=== PATIENT | male | born 1960 | race Caucasian/White ===

== ENCOUNTER 2019-04-11 13:04 | Outpatient (RCR) | payer MEDICARE, MEDICAID, SELFPAY | END 2019-05-09 00:01 | LOC: WOUND 13:04 | PROVIDERS: Family Provider Nurse Practitioner Primary Care; Visit Provider Thoracic Surgery (Cardiothoracic Vascular Surgery) | DX: I96 Gangrene, not elsewhere classified (principal); L97.529 Non-pressure chronic ulcer of other part of left foot with unspecified severity; I12.0 Hypertensive chronic kidney disease with stage 5 chronic kidney disease or end stage renal disease; N18.6 End stage renal disease; Z99.2 Dependence on renal dialysis | CPT/HCPCS: 11042 ==

== ENCOUNTER 2019-06-01 13:15 | Observation (INO) | payer MEDICARE, MEDICAID, SELFPAY ==
[2019-06-01] VITALS (82 sets, daily range): BP systolic 120–187; BP diastolic 80–136; PULSE 71–93; RESP 0–22; TEMP 36.6–36.7; O2SAT 91–99; BMI 25.3
--- NOTE | 2019-06-01 07:30 | XACV_ITS ---
Ht: 183 cm Wt: 85 kg BSA: 2.08 m2 Gender: Male : 1960 Exam Type: Invasive Peripheral Vascular Procedure(s): Procedure Description: Peripheral Cath Diagnostic Procedure Procedure Description: Abdominal aortic angiography Procedure Description: Lower extremities' angiography Procedure Description: Peripheral vascular Intervention Procedure Description: PV Balloon Exam Priority: Routine Lower Extremity Interventional Findings Unsuccessful attempt to open up left posterior tibial artery. Were not able to cross the lesion despite of multiple balloon angioplasty. Medical management was advised. Conclusions Gangrenous left foot toesSevere claudication ( [place] grade II, category 4:Lux stage IIII. )Procedure SummaryRight common femoral artery was used to performed peripheral angiogram, #1 Abdominal aortic has Luminal irregularities#2 Left and right renal arteries has luminal irregularities. 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 Left peroneal artery has proximal 50% stenosis.#15 digital arteries of the left foot not well visualized most likely occluded. Patient has small vessel disease. Hemodynamic Data Phase:Rest AO : 171.0 mmHg / 93.0 mmHg ( 126.0 mmHg ) @ 5:21:00 AM 158.0 mmHg / 81.0 mmHg ( 109.0 mmHg ) @ 5:30:00 AM 158.0 mmHg / 72.0 mmHg ( 105.0 mmHg ) @ 5:32:00 AM 144.0 mmHg / 69.0 mmHg ( 98.0 mmHg ) @ 5:44:00 AM 141.0 mmHg / 67.0 mmHg ( 94.0 mmHg ) @ 5:47:00 AM 140.0 mmHg / 70.0 mmHg ( 97.0 mmHg ) @ 6:04:00 AM 140.0 mmHg / 72.0 mmHg ( 100.0 mmHg ) @ 6:16:00 AM 154.0 mmHg / 78.0 mmHg ( 109.0 mmHg ) @ 6:25:00 AM Access Site Site: Right Femoral artery Sheath Size: 6 Fr Hemost... Method: Suture Hemost... Success: Successful Procedure Details Findings [facility] time/date stamp having technical issues. All documentation and procedure done between 10:25- on June 01, 2019. Perclose: Ref #[id number]; LOT #[id number]. Critical lab results relayed to physician. Creatine 7.7. [place] wire removed. Command wire inserted. Command wire removed. Glidewire inserted. Seeker removed. Bakari Cross inserted over the glidewire. Everything out. RIM catheter inserted over the glidewire to the posterior tib. RIM catheter and glidewire inserted to left popliteal. Medication's Wasted: Lidocaine 1% = 10mL, Heparin = 4000 units, Versed = 1 mg, Fentanyl 50mcg. [id number]. Procedure Consent Obtained. Pre-Procedure Time Out. Identified patient by full name and date of as verbalized by the patient/guarantor. Does the consent match the physician's order: Yes. Accurate & Complete Informed Consent: Yes. Inpatient/Outpatient History & Physical on Chart: Yes. Visualize and Verify Site with Patient/Guarantor: N/A. Relevant Radiology Images available: N/A. The risks, benefits, and alternatives of sedation and/or procedure were discussed by physician. The patient agrees to continue. Procedure started. Bindery Machine Setter/Set Up Operator Indications: Other. PERRLA. Strong, equal hand brake lining maker bilaterally. Lungs clear x 5 lobes. IV Site on Arrival: 20 gauge in the right wrist. IV Site on Arrival: Saline Lock. A 20 gauge IV was started in the right wrist using aseptic technique. IV Fluids: 0.9% NaCl at KVO. mL infused prior to laboratory chief. Oxygen started at 2liters/min via nasal canula. bilateral groins was prepped with chloroprep then draped in the usual sterile fashion. Physician notified. Baseline sample Acquired. HR: 93 BPM. Patient's family unavailable. Equipment: 6F - Femoral. Physician arrived. Physician scrubbed in. Immediate Pre-Procedure Time Out. Correct Patient: Yes; Correct Procedure: Yes; Correct Site: Yes; Correct Patient Position: Yes; Correct Supplies: Yes; Dried Flammable Prep: Yes; Blood Products Available: Yes;. Dr. Herrera scrubbed in to perform intervention. PCI Indication: critical lower limb ischemia. Delay in PCI related to other reason: needing labs drawn - pre failed to draw labs. Francisca Erickson, RT(R) was relieved by Johnathon Mcmahon RT(R), TUBE BUFFER as monitoring person. Lidocaine 1% infiltrated to the right groin. Arterial access obtained with micropuncture set. A 5FrFr UF catheter in over wire. Abdominal aortogram performed in AP @ 10 mL/sec for a total of 30 mL. Sheath upsized to a 6 Fr. Trailblazer catheter inserted over the wire. Side port of sheath attached to Normal Saline flush at KVO to maintain patency. Support catheter positioned in the popliteal to better visualize the distal vessels. Wire out. Left popliteal selected and arteriogram performed. Wire redirected to the peroneal. Left tibial peroneal trunk selected and arteriogram performed. Wire redirected to the posterior tibial. Balloon inserted over the wire to the posterior tibial. Inflation number : 1 A AB MINI TREK 2.00X20 RX BALLOON was prepped and advanced across the Proximal Posterior Tibial, Left , then inflated to 20 DEV for 0:46 seconds. Inflation number: 2 The AB MINI TREK 2.00X20 RX BALLOON was reinflated across the Proximal Posterior Tibial, Left, to 20 DEV for 0:10 seconds. Balloon and wire out. Left posterior tibial selected and arteriogram performed. Catheter out. Left common femoral selected and arteriogram with runoff performed @ 10 mL/sec for a total of 30 mL. Sheath injected in Right common femoral artery and runoff performed. A Suture was successful obtaining hemostatsis at the Right Femoral artery insertion site. Sheath(s) sutured into position with 2-0 silk and sterile 4x4's and Op-site applied over the site. No oozing or signs and symptoms of hematoma noted. Arterial sheath flushed and connected to tranducer and pressure bag with heparinized saline. Post Procedure: Pulses reassessed and unchanged. Physician scrubbed out. PERRLA. Strong, equal hand brake lining maker bilaterally. No VTE prophylaxis required. Total IV fluids: 700 mL. Fluoro: 25:10. Contrast type used: Visipaque 320 mgI/mL, 500 mL bottle. Post-op diagnosis: Peripheral Arterial Disease. Complications: Perclose failed. Estimated blood loss: 5mL-10mL. Procedure completed. Patient transferred by bed to 1st floor. Procedure Medications Start: 10:46 AM Stop: 10:46 AM Medication: Versed Amount: 1 mg Route: I.V. Start: 10:46 AM Stop: 10:46 AM Medication: Fentanyl Amount: 50 mcg Route: I.V. Start: 10:51 AM Stop: 10:51 AM Medication: Versed Amount: 1 mg Route: I.V. Start: 10:51 AM Stop: 10:51 AM Medication: Fentanyl Amount: 50 mcg Route: I.V. Start: 10:53 AM Stop: 10:53 AM Medication: Versed Amount: 1 mg Route: I.V. Start: 10:53 AM Stop: 10:53 AM Medication: Fentanyl Amount: 50 mcg Route: I.V. Start: 12:19 PM Stop: 12:19 PM Medication: Heparin Amount: 5000 units Route: I.A. I, the attending physician, have reviewed and verified all procedure medications. Yes, all medications given per verbal order History/Risk Factors Hypertension: No Dyslipidemia: No Peripheral Arterial Disease (PAD): Yes Myocardial Infarction (CT): No Obesity: No Tobacco Use: Former Prior Interventions PCI: No CABG: No Valve Surgery: No Report Signatures Finalized by:Hiwot Herrera MD on 06/18/2019 10:04:58 PM
[2019-06-01] MEDS: sodium chloride 0.9% 1,000 ML 50 ML IV (08:44)
[2019-06-01] MEDS: diphenhydrAMINE 50 mg Capsule PO (08:44)
[2019-06-01 09:48] LABS: INR 0.91 (0.8-1.2)
--- NOTE | 2019-06-01 10:30 | P.HP_ITS ---
Providers/Chief Complaint Chief Complaint: Critical Lower Limb Ischemia History of Present Illness Joshua Baugh is a 59 year old male past medical history significant for severe peripheral vascular disease, gangrenous left foot with nonhealing ulcers and supranormal KAMRYN of left leg and TBI 0.34 due to highly calcified vessels secondary to chronic kidney disease. Patient is on hemodialysis. He follows up with wound care clinic. Today he is here for peripheral angiogram and an attempt to revascularize due to gangrenous onset of the foot he denies any chest pain shortness of breath upon laying down. He denies history of bleeding per rectum or through stomach. He is allergic to ibuprofen. Medications/Allergies Allergies Allergy/AdvReac Type Severity Reaction Status Date / Time ibuprofen Allergy ADR-Gastrointestinal Verified 06/01/19 08:18 Upset PFSH Acute PFSH: Statuses (acute, chronic, etc) shown below reflect problem list status as previously entered and may not be historically accurate Medical History (Updated 06/01/19 @ 10:38 by Hiwot Herrera MD) Critical lower limb ischemia (Acute) Hemodialysis patient (Acute) Hemodialysis 3 days a week Hypertension (Acute) Non-healing ulcer (Acute) Left Toe Peripheral vascular disease (Acute) Family History Sister Cancer Social History Smoking and tobacco status: former smoker Quit status (tobacco): has quit using tobacco Vitals/I&O/Wt Last Vital Signs Temp 98.0 F 06/01/19 08:30 Pulse 84 06/01/19 08:30 Resp 18 06/01/19 08:30 BP 160/106 06/01/19 08:30 Pulse Ox 97 06/01/19 08:30 Weight last 48 hrs Weight 187 lb Weight 187 lb Physical Exam Narrative: EXAM NARRATIVE: GENERAL: Patient is alert, awake and oriented x3. [] NECK: No jugular vein distension. [] HEENT: No cyanosis. No icterus. No pallor. [] HEART: Regular S1 and S2. No murmur, rub or gallop. [] LUNGS: Clear to auscultate bilaterally. [] ABDOMEN: Soft, nontender and nondistended. Positive bowel sounds. No guarding, rebound or tenderness. [] CENTRAL NERVOUS SYSTEM: Grossly nonfocal. [] EXTREMITIES: Lower extremities without edema bilaterally. Not palpable in left lower foot. First second and third toes has nonhealing wound with gangrenous onset A&P Assessment and plan (1) Critical lower limb ischemia: Patient has gangrenous left foot with severe peripheral vascular disease/critical limb ischemia. He is here today for peripheral angiogram and percutaneous angioplasty if indicated. Patient has been explained in detail all risk benefits and alternatives for the procedure. He has been explained the risk of drug-coated balloon and warning regarding high mortality and subset where drug-coated balloon was used by FDA. He would like to proceed with drug- coated balloon angioplasty or stent placement if indicated. Status: Acute Code(s): I99.8 - Other disorder of circulatory system (2) Hypertension: Controlled. Continue current regimen Status: Acute Code(s): I10 - Essential (primary) hypertension (3) Hemodialysis patient: He will be dialyzed tomorrow. Status: Acute Code(s): Z99.2 - Dependence on renal dialysis Attestations Medical Necessity Statement*: I am not expecting his stay to cross more than 1 midnight Coding Level of Care Code Acute Radio Mechanic for [facility] Fwd Diagnoses Critical lower limb ischemia I99.8 Hypertension I10 Hemodialysis patient Z99.2
[2019-06-01 11:04] LABS: Basophils % 0.1 %; Eosinophils % 0.2 %; Hematocrit 38.1 % (42.0-52.0); Hemoglobin 11.7 g/dL (11.7-16.6); Lymphocytes # 0.8 10^3/uL (0.8-4.8); Lymphocytes % 8.7 %; Mean Corpuscular HGB Conc 30.7 g/dL (30.0-36.0); Mean Corpuscular Hemoglobin 32.4 pg (28.0-34.0); Mean Corpuscular Volume 105.5 fL (80-94); Monocytes # 0.5 10^3/uL (0.2-0.9); Monocytes % 5.1 %; Neutrophils # 7.8 10^3/uL (1.8-7.7); Neutrophils % 82.8 %; Nucleated Red Blood Cells % 0 %; Platelet Count 187 10^3/cmm (130-400); Red Blood Count 3.61 10^6/uL (4.1-5.3); Red Cell Distribution Width 14.6 % (12.1-15.1); White Blood Count 9.4 10^3/uL (4.0-10.0)
--- NOTE | 2019-06-01 11:12 | ANES.PREANES ---
Pre-Anesthetic Assessment Pre-Anesthetic Assessment: Height/Weight: Height 1.83 m Weight 84.822 kg Temp Pulse Resp BP Pulse Ox 98.0 F 84 18 160/106 97 06/01/19 08:30 06/01/19 08:30 06/01/19 08:30 06/01/19 08:30 06/01/19 08:30 Preop Diagnosis: left leg arterial insufficiency Proposed Procedure: Operation Date: 06/01/19 08:00 Proposed Procedures p Peripheral Diagnostic(Bilateral) - Hiwot Herrera MD Was Beta Lima taken within 24 hours: Yes Last intake: 05/31 2358 Last Intake: 23:59 Social: Comment: former smoker Airway: Dentition: False CV/HEM: CV/HEM: HTN and PVD : : Chronic renal failure Comments: dialysis MWF Hepatic: Hepatic: None reported Musc/skel: Musc/skel: None reported Anesthetic Plan: ASA status: IV Anesthesia: MAC Other Pertinent Information: called over for peripheral angiogram in progress. pt has had 3mg versed and 150mcg of fentanyl but having trouble keeping pt still. assessed and evaluated and read H&P. Meds/Allergies Current Medications: Current Medications Generic Name Dose Route Start Last Admin Trade Name Freq PRN Reason Stop Dose Admin Sodium Chloride 1,000 mls @ 50 ml s/hr 06/01/19 07:30 06/01/19 08:44 Sodium Chloride 0.9% IV 06/02/19 03:29 50 mls/hr .Q20H ONE Administration PFSH Anesthesia PFSH: Medical History (Updated 06/01/19 @ 10:38 by Hiwot Herrera MD) Critical lower limb ischemia (Acute) Hemodialysis patient (Acute) Hemodialysis 3 days a week Hypertension (Acute) Non-healing ulcer (Acute) Left Toe Peripheral vascular disease (Acute) Family History Sister Cancer Social History Smoking and tobacco status: former smoker Quit status (tobacco): has quit using tobacco Data Anesthesia CBC & Chem 7: 06/01/19 08:36 Other Labs: Laboratory Results - last 48 hr 06/01/19 06/01/19 08:36 08:36 WBC 9.4 RBC 3.61 L Hgb 11.7 Hct 38.1 L MCV 105.5 H MCH 32.4 MCHC 30.7 RDW 14.6 Plt Count 187 MPV 10.0 Neut % (Auto) 82.8 Lymph % (Auto) 8.7 [place] % (Auto) 5.1 Eos % (Auto) 0.2 Baso % (Auto) 0.1 Neut # (Auto) 7.8 H Lymph # (Auto) 0.8 [place] # (Auto) 0.5 Eos # (Auto) 0.0 Baso # (Auto) 0.0 Nucleated RBC % (auto) 0 Nucleated RBCs # 0.0 PT 12.50 INR 0.91 Cardiac Studies: No Data to Display
[2019-06-01 11:47] LABS: Anion Gap 15.3 (5-19); Blood Urea Nitrogen 38 mg/dL (8-23); Calcium 8.8 mg/dL (8.5-10.5); Carbon Dioxide 29 mmol/L (22-29); Chloride 98 mmol/L (98-107); Glomerular Filtration Rate 7.2 mL/min (90-130); Glucose 117 mg/dL (74-106); Osmolality Calculated 283 mOsm/kg (285-295); Potassium 5.3 mmol/L (3.5-5.1); Sodium 137 mmol/L (136-145)
[2019-06-01] MEDS: morphine 4 mg/mL SDV 1 mL IVP ×2 (13:22→23:27)
--- NOTE | 2019-06-01 13:28 | PC.NURSE ---
PATIENT TO CSU 106 VIA STRETCHER WITH CCL RNs ; PATIENT HAS SHEATH IN IN RIGHT GROIN ATTACHED TO PRESSURE BAG ; VSS ; PATIENT COMBATIVE WITH SECURITY AND DR AT BEDSIDE ; PATIENT, UNDER INFLUENCE OF MEDICATIONS ADMINISTERED IN CCL, PER CCL RN WAS NOT THIS WAY PRIOR TO PROCEDURE ; MORPHINE WAS ORDERED AND ADMINISTERED ; PATIENT OPENED EYES AFTER ADMINISTRATION OF MORPHINE AND WAS POLITE AND INTRODUCED HIMSELF ; RIGHT GROIN SITE DRESSING C/D/I WITH RIGHT DISTAL PEDAL PULSE PRESENT ; WILL DOPPLER LEFT PEDAL PULSE WHEN PATIENT LESS CONFUSED ; REPORT GIVEN VIA PHONE AND AT BEDSIDE
[2019-06-01 16:55] LABS: Partial Thromboplastin Time 28.5 SECONDS (23.9-36.7)
[2019-06-01] MEDS: ALPRAZolam 0.5 mg Tablet PO ×2 (18:10→21:16)
[2019-06-01] MEDS: sevelamer 800 mg Tablet PO (18:10)
[2019-06-01] MEDS: amlodipine 5 mg Tablet 2.5 MG PO (18:10)
[2019-06-01] MEDS: carvedilol 25 mg Tablet PO (18:10)
[2019-06-01] MEDS: fentaNYL 50 mcg/mL INJ 2mL IVP (18:50)
--- NOTE | 2019-06-01 22:45 | PC.NURSE ---
Patient wanted his blood pressure cuff off at 2100. this is why post cath flow sheet could not be completed as ordered.
[2019-06-02] VITALS (7 sets, daily range): BP systolic 136–178; BP diastolic 86–107; PULSE 85–91; RESP 10–24; TEMP 36.6–37; O2SAT 92–97
[2019-06-02] MEDS: morphine 4 mg/mL SDV 1 mL IVP ×2 (05:11→12:19)
[2019-06-02] MEDS: predniSONE 10 mg Tablet PO (08:52)
[2019-06-02] MEDS: amlodipine 5 mg Tablet 2.5 MG PO (08:52)
[2019-06-02] MEDS: ALPRAZolam 0.5 mg Tablet PO (08:52)
[2019-06-02] MEDS: sevelamer 800 mg Tablet PO (08:52)
[2019-06-02] MEDS: carvedilol 25 mg Tablet PO ×2 (08:52→19:49)
--- NOTE | 2019-06-02 09:39 | PM.DCS ---
Discharge Providers Date of Admission: 06/01/19 13:15 Date of Discharge: 06/14/19 Attending Provider at Admission: Hiwot Herrera Attending Provider at Discharge: Hiwot Herrera Primary Care Provider: Hiwot Herrera Diagnoses at Discharge Discharge Diagnosis (1) Critical lower limb ischemia: Status: Acute (2) Hypertension: Status: Acute (3) Hemodialysis patient: Status: Acute Problem details: Hemodialysis 3 days a week Reason for Visit Reason for Visit: Reason For Visit: Critical Lower Limb Ischemia Discharge Data Data Completed and Pending: Completed Studies During Hospitalization Category Date Time Status LEARNING AND DEVELOPMENT MANAGER request for service Routin e Exams 06/01/19 07:30 Completed Labs from last 24 hours 06/01/19 06/01/19 06/01/19 16:39 11:20 08:36 WBC 9.4 RBC 3.61 L Hgb 11.7 Hct 38.1 L MCV 105.5 H MCH 32.4 MCHC 30.7 RDW 14.6 Plt Count 187 MPV 10.0 Neut % (Auto) 82.8 Lymph % (Auto) 8.7 [place] % (Auto) 5.1 Eos % (Auto) 0.2 Baso % (Auto) 0.1 Neut # (Auto) 7.8 H Lymph # (Auto) 0.8 [place] # (Auto) 0.5 Eos # (Auto) 0.0 Baso # (Auto) 0.0 Nucleated RBC % (a uto) 0 Nucleated RBCs # 0.0 PT INR APTT 28.5 Sodium 137 Potassium 5.3 H Chloride 98 Carbon Dioxide 29 Anion Gap 15.3 BUN 38 H Creatinine 7.7 H* GFR Calculation 7.2 L Glucose 117 H Calculated Osmolal ity 283 L Calcium 8.8 06/01/19 08:36 WBC RBC Hgb Hct MCV MCH MCHC RDW Plt Count MPV Neut % (Auto) Lymph % (Auto) [place] % (Auto) Eos % (Auto) Baso % (Auto) Neut # (Auto) Lymph # (Auto) [place] # (Auto) Eos # (Auto) Baso # (Auto) Nucleated RBC % (a uto) Nucleated RBCs # PT 12.50 INR 0.91 APTT Sodium Potassium Chloride Carbon Dioxide Anion Gap BUN Creatinine GFR Calculation Glucose Calculated Osmolal ity Calcium Vitals: Last Vital Signs Temp 98.2 F 06/02/19 07:34 Pulse 91 01/24/20 07:34 Resp 10 L 06/02/19 07:34 BP 178/107 06/02/19 07:34 Pulse Ox 97 06/02/19 07:34 Discharge Plan Discharge Patient Disposition: Home, Self-Care Condition: Stable Prescriptions: Continued clonidine HCl 0.1 mg Tablet 0.1 mg PO BID RF: 0 tramadol 50 mg Tablet 50 mg PO Q8H PRN (Reason: Pain) RF: 0 sevelamer carbonate [Renvela] 800 mg Tablet 800 mg PO TID RF: 0 prednisone 10 mg Tablet 10 mg PO BID RF: 0 carvedilol 25 mg Tablet 25 mg PO BID RF: 0 alprazolam 0.5 mg Tablet 0.5 mg PO TID RF: 0 amlodipine 2.5 mg Tablet 2.5 mg PO DAILY RF: 0 hydrocodone-acetaminophen 5-325 mg Tablet 0.5 - 1 tab PO Q4H PRN (Reason: Pain) RF: 0 Discharge Orders: Discharge Order (Routine); Ordered 06/02/19 Ordered By: Hiwot Herrera Discharge Diet: Advance as tolerated and Cardiac Discharge Activity: Increase activity as tolerated Patient Instructions: Hemodialysis (DC), Hemodialysis (GEN), Chronic Hypertension (DC), Peripheral Vascular Angioplasty (DC), Peripheral Vascular Angioplasty (GEN) Activity Restrictions/Additional Instructions: No lifting of more than a gallon of milk for next 3 days. Please follow-up with your wound care clinic. Conservative management due to distal small vessel disease. Continue your dialysis as per your appointment today. Discharge Date/Time: 06/03/19 07:12 Discharge Attestations Time Spent in Discharge Care*: less than 30 min Quality Metrics Clinical Quality Measures During this hospital stay, did patient experience: None Coding Level of Care Code Acute Air Route Traffic Controller for [facility] Fwd Diagnoses Critical lower limb ischemia I99.8 Hypertension I10 Hemodialysis patient Z99.2
--- NOTE | 2019-06-02 12:37 | PC.CHAP ---
Pastoral Care Encounter/Spiritual Assessment Type of Contact [] Declined cmo & president visit [] Patient/Family/Request visit [] Outpatient visit [] Follow-up visit [] Physician referral [] Code/Alert [x] Routine visit [] Staff referral [] Actively dying [] Patient sleeping [] Family support [] [] Out of room [] Palliative care [] [] Receiving care in room [] Pre-surgical visit [] Trauma [] Long length of stay [] ICU visit [] Other: Relational/Emotional Strength [x] Patient feels connected with others/family/visitors/staff [] Distress [] Loneliness/isolation [] Abandonment Spirituality of Patient [x] Person of Tabitha [x] Attends Rastafarian of their Tabitha [x] Believes in Prayer [] Reads Bible or Protestant materials [] There are Spiritual issues to be addressed Machine Striper Interventions [x] Prayer [x] Active listening [x] Non-anxious presence [x] Spiritual/emotional support [] Crisis/trauma care [x] Spiritual counseling [] Bereavement support [] Provided bereavement packet [] Provided Bible/devotional materials [] Provided toy/stuffed animal, coloring book to patient or family member [] Completed spiritual assessment [] Provided Communion [] Anointing/[place] [] Salvation [] Other: Impact on Illness or Injury [] Angry [] Fearful [] Anxious [] Often cries [] Exhaustion [] Unable to work [] Unable to attend mormonism [] Unable to walk/stand [] Unable to read [] Unable to drive [] Unable to eat/drink [] Unable to sleep [] Unable to be with family [x] Other: N/A Summary Time spent with patient 5-minutes
[2019-06-02 13:56] LABS: Hepatitis C Virus Antibody Non-Reactive (Nonreactive)
[2019-06-02 13:57] LABS: Hepatitis B Surface Antigen. Non-Reactive (Nonreactive)
--- NOTE | 2019-06-02 15:40 | PM.PN ---
Subjective Subjective: Interval history: I was called and asked to dialyze patient post procedure - today is regular dialysis day. He received 2'45 and signed off machine AMA. Anxious for discharge home.States he will return to outpatient unit for regularly scheduled dialysis WednesdayJun 05 I asked him to restrict potassium and fluids over weekend. Vitals/I&O/Wt Last Vital Signs Temp 98.2 F 06/02/19 11:10 Pulse 90 06/02/19 11:10 Resp 18 06/02/19 12:19 BP 136/86 06/02/19 11:10 Pulse Ox 97 06/02/19 11:10 06/02/19 06/02/19 06/02/19 06:59 14:59 22:59 Intake Total 240 / 720 Output Total 250 / 250 300 / 300 Balance -10 / 470 -300 / -300 Weight last 48 hrs Weight 84.822 kg Weight 84.822 kg Data : 06/01/19 08:36 06/01/19 11:20 Attestations Medical Necessity Statement*: being discharged Coding Level of Care Code Acute Home Visitor [employer] for [facility]
--- NOTE | 2019-06-02 16:01 | PC.SOCIAL ---
Pt care nurse Elana messaged & asked if we can set pt up a ride. [facility], [facility] now [facility]. Trip # [id number]. Notified Mariel Parikh there is a 3hr window.
--- NOTE | 2019-06-02 20:29 | PC.NURSE ---
Patient is currently discharged and waiting for transportation through [facility]. New trip # [id number] [facility].
--- NOTE | 2019-06-02 23:06 | PC.NURSE ---
Assessments not completed on this patient due to being discharged. Patient has been waiting for a ride through [employer]. RN has spoke to [employer] representives multiple times this evening to check on ride. Have spoke with Lindsay Brown, and Willa every hour since obtaining a new trip number for [facility]. Trip # [id number]. Information received is they are still trying to find transportation. . IV and telemetry removed earlier today when discharge paperwork was signed by patient. Have kept patient up to date as much as possible. Patient has been understanding and cooperative at this time.
--- NOTE | 2019-06-03 00:32 | PC.NURSE ---
Spoke with Amish at [facility]. [facility] has arranged transportation with [facility]. 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 Informed patient of arrangements and patient was pleasant stating, I will just be happy to be home.
== END 2019-06-03 07:12 | disposition home or self-care (01) ==
LOC: CSU 13:16
PROVIDERS: Internal Medicine; Admitting Provider Internal Medicine Cardiovascular Disease; Family Provider Nurse Practitioner Primary Care; PCP Internal Medicine Cardiovascular Disease; Visit Provider Internal Medicine Cardiovascular Disease
DX: I70.268 Atherosclerosis of native arteries of extremities with gangrene, other extremity (principal); Z99.2 Dependence on renal dialysis; Z87.891 Personal history of nicotine dependence; I12.9 Hypertensive chronic kidney disease with stage 1 through stage 4 chronic kidney disease, or unspecified chronic kidney disease; N18.9 Chronic kidney disease, unspecified
CPT/HCPCS: 12345; 36415; 37228; 71045; 73630; 75625; 75716; 80048; 80053; 82550; 83605; 84100; 85025; 85610; 85651; 85730; 86140; 86803; 87340; 93005; 96365; 96374; 96375; 99281; C1725; C1769; C1887; C1894; G0378; J1644; J2001; J2250; J2270; J2405; J2704; J3010; J7030; J7512; Q3014; Q9967

== ENCOUNTER 2019-06-03 20:39 | Emergency (ER) | payer MEDICARE, MEDICAID, SELFPAY ==
[2019-06-03 20:40] VITALS: BP 162/99; PULSE 107; RESP 18; TEMP 36.7; O2SAT 90; BMI 22.3
--- NOTE | 2019-06-03 20:43 | ED_ITS ---
Entered by Anat Barbour, acting as scribe for Carloz Greenberg DO HPI - Extremity Problem General: Chief complaint: Extremity Injury, Lower Stated complaint: FOOT PAIN/ DISCOLORATION Time Seen by Provider: 06/03/19 20:45 Source: patient and EMS Mode of arrival: EMS Limitations: no limitations History of Present Illness: HPI Narrative: 59 yo m came to the er by [facility]. Onset was 6 weeks ago. Pt states that he has had a cath done last night. PT states that wound clinic has been trying to treat his left foot/toes. MD Complaint: extremity pain (left foot pain) Onset (ago): week(s) (6 weeks ago) Associated symptoms: Deny chest pain, fever(s) or rash Review of Systems Const: Denies: fever or chills Eyes: Denies: change in vision or blurry vision ENMT: Denies: painful swallowing, swelling of lips/tongue, bleeding gums, dental pain, Change in hearing, nose bleeds, post nasal drip or facial/sinus pain Card: Denies: chest pain, palpitations, irregular heart rhythm, edema, swelling of feet/ankles, shortness of breath on exertion or shortness of breath when lying down Resp: Denies: shortness of breath, productive cough, non-productive cough or wheezing GI: Denies: abdominal pain, nausea, vomiting, rectal pain, blood in stool or black tarry stool Musc: Reports: joint warmth; Denies: redness Skin/Breast: Denies: rash, itching or redness Neuro: Denies: headache, dizziness, vertigo, confusion or seizure-like activity Psych: Denies: anxiety, visual hallucinations or auditory hallucinations PFSH ED PFSH: Statuses (acute, chronic, etc) shown below reflect problem list status as previously entered and may not be historically accurate Medical History Critical lower limb ischemia (Acute) Hemodialysis patient (Acute) Hemodialysis 3 days a week Hypertension (Acute) Non-healing ulcer (Acute) Left Toe Peripheral vascular disease (Acute) Family History Sister Cancer Social History Smoking and tobacco status: former smoker Quit status (tobacco): has quit using tobacco Physical Exam Const: GENERAL APPEARANCE: well developed ORIENTATION/CONSCIOUSNESS: Yes oriented to person, Yes oriented to place and Yes oriented to time HENMT: COMMON NORMALS: normocephalic, external ears normal and external nose normal HEAD & SCALP: normocephalic; no scalp tenderness FACE & SINUS: normal facial exam NOSE: external nose normal and no nasal discharge EXTERNAL EAR: Yes external ears normal MOUTH: tongue normal TEETH & GINGIVA: no abnormal tooth and associated g ingiva THROAT: posterior oropharynx normal; no peritonsillar mass Eye: COMMON NORMALS: EOMs intact bilaterally EYELID: eyelids normal Neck/C-Spine: GENERAL: No tracheal deviation CERVICAL SPINE: Yes normal cervical lordosis Chest: COMMONS NORMALS: inspection of chest normal CHEST: No tenderness Resp: COMMON NORMALS: clear to auscultation bilaterally EFFORT & INS PECTION: No tachypneic, No respiratory distress, No retractions, No uses accessory muscles and No tracheal deviation AUSCULTATION: clear to auscultation bilaterally, no rhonchi, no wheezes and lung sounds not diminished Cardio: COMMON NORMALS: regular rate and regular rhythm RATE: regular rate RHYTHM: regular rhythm HEART SOUNDS: no murmurs PERIPHERAL PULSES: radial pulses present GI: INSPECTION: No abdominal distension AUSCULTATION: No hyperactive bowel sounds and No hypoactive bowel sounds PALPATION: No guarding and No rigid PERCUSSION: no dullness to percussion and no tympanic to percussion : COMMON NORMALS: Yes no CVA tenderness BLADDER/KIDNEY EXAM: Yes no CVA tenderness Back/Pelvis: COMMON NORMALS: no CVA tenderness Extremity: LEFT LOWER EXTREMITY: Yes foot & digits (First 3 toes appear black, eschar present. Mildly reddened. Cool. Small areas of desquamation present.) Neuro: SENSORIUM/ORIENTATION: Yes oriented to person, Yes oriented to place and Yes oriented to time Psych: COMMON NORMALS: mental status grossly normal Skin: COMMON NORMALS: no rashes or lesions noted GENERAL SKIN EXAM: no rashes or lesions noted Course ED course: 59-year-old male had an angiogram to the left lower extremity yesterday to investigate for peripheral vascular disease related to nonhealing gangrenous looking 3 left toes that have been chronic for 6 weeks or so. Patient relates no change in the appearance of the foot or toes only that they hurt worse tonight. Spoke with the cellular phone repairer performed the angiogram, he states that there was no intervention possible, because of the changes were quite distal in the small vessels, and the patient had patent flow to his larger vessels. He was referred to vascular/wound surgery for amputation. He shows no sign of acute illness tonight, only the chronic toe wounds. He was treated for pain. He has outpatient follow-up arranged. Vital Signs: Vital signs: Vital Signs Temperature 98.1 F 06/03/19 20:40 Pulse Rate 107 H 06/03/19 20:40 Respiratory Rate 15 06/03/19 22:49 Blood Pressure 128/75 06/03/19 22:49 Pulse Oximetry 93 06/03/19 22:49 MDM - Extremity (Nontraumatic) Lab Data: Labs: Lab Results 06/03/19 06/03/19 06/03/19 Range/Units 21:07 21:07 21:07 WBC 7.7 (4.0-10.0) 10^3/ uL RBC 3.12 L (4.1-5.3) 10^6/u L Hgb 10.0 L (11.7-16.6) g/dL Hct 31.5 L (42.0-52.0) % MCV 101.0 H (80-94) fL MCH 32.1 (28.0-34.0) pg MCHC 31.7 (30.0-36.0) g/dL RDW 14.7 (12.1-15.1) % Plt Count 158 (130-400) 10^3/c mm MPV 9.3 (7.4-10.4) fL Neut % (Auto) 72.1 % Lymph % (Auto) 17.6 % [place] % (Auto) 6.8 % Eos % (Auto) 1.0 % Baso % (Auto) 0.3 % Neut # (Auto) 5.5 (1.8-7.7) 10^3/u L Lymph # (Auto) 1.4 (0.8-4.8) 10^3/u L [place] # (Auto) 0.5 (0.2-0.9) 10^3/u L Eos # (Auto) 0.1 (0.0-0.8) 10^3/u L Baso # (Auto) 0.0 (0.0-0.1) 10^3/u L Nucleated RBC % (a uto) 0 % Nucleated RBCs # 0.0 /100WBC ESR 43 H (0-10) mm/hr PT 13.70 H (10.5-13.3) SECO NDS INR 1.02 (0.8-1.2) APTT 32.6 (23.9-36.7) SECO NDS Sodium (136-145) mmol/L Potassium (3.5-5.1) mmol/L Chloride (98-107) mmol/L Carbon Dioxide (22-29) mmol/L Anion Gap (5-19) BUN (8-23) mg/dL Creatinine (0.7-1.2) mg/dL GFR Calculation (90-130) mL/min Glucose (74-106) mg/dL Lactate (0.5-2.2) mmol/L Calcium (8.5-10.5) mg/dL Phosphorus (2.5-4.5) mg/dL Total Bilirubin (0.15-1.2) mg/dL AST (0-40) U/L ALT (0-41) U/L Alkaline Phosphata se (40-130) IU/L Creatine Kinase (39-308) U/L C-Reactive Protein (0.0-4.9) mg/L Total Protein (6.6-8.7) g/dL Albumin (3.5-5.2) g/dL Globulin (1.3-4.6) g/dL 06/03/19 06/03/19 Range/Units 21:07 21:07 WBC (4.0-10.0) 10^3/ uL RBC (4.1-5.3) 10^6/u L Hgb (11.7-16.6) g/dL Hct (42.0-52.0) % MCV (80-94) fL MCH (28.0-34.0) pg MCHC (30.0-36.0) g/dL RDW (12.1-15.1) % Plt Count (130-400) 10^3/c mm MPV (7.4-10.4) fL Neut % (Auto) % Lymph % (Auto) % [place] % (Auto) % Eos % (Auto) % Baso % (Auto) % Neut # (Auto) (1.8-7.7) 10^3/u L Lymph # (Auto) (0.8-4.8) 10^3/u L [place] # (Auto) (0.2-0.9) 10^3/u L Eos # (Auto) (0.0-0.8) 10^3/u L Baso # (Auto) (0.0-0.1) 10^3/u L Nucleated RBC % (a uto) % Nucleated RBCs # /100WBC ESR (0-10) mm/hr PT (10.5-13.3) SECO NDS INR (0.8-1.2) APTT (23.9-36.7) SECO NDS Sodium 134 L (136-145) mmol/L Potassium 5.2 H (3.5-5.1) mmol/L Chloride 95 L (98-107) mmol/L Carbon Dioxide 26 (22-29) mmol/L Anion Gap 18.2 (5-19) BUN 42 H (8-23) mg/dL Creatinine 11.0 H* (0.7-1.2) mg/dL GFR Calculation 4.8 L (90-130) mL/min Glucose 86 (74-106) mg/dL Lactate 0.7 (0.5-2.2) mmol/L Calcium 9.5 (8.5-10.5) mg/dL Phosphorus 4.9 H (2.5-4.5) mg/dL Total Bilirubin 0.6 (0.15-1.2) mg/dL AST 26 (0-40) U/L ALT 32 (0-41) U/L Alkaline Phosphata se 134 H (40-130) IU/L Creatine Kinase 87 (39-308) U/L C-Reactive Protein 128.8 H (0.0-4.9) mg/L Total Protein 6.1 L (6.6-8.7) g/dL Albumin 3.6 (3.5-5.2) g/dL Globulin 2.5 (1.3-4.6) g/dL Imaging Data^: CXR: Radiologist's impression: [address] [address] XRay Report Signed Patient: Joshua Baugh #: [id number] : 9Acct#:[id number] Age/Sex: 59 / MADM Date: 06/03/19 Loc: ERRoom/Bed: Attending Dr: Ordering Provider/Ordering MD: Carloz Greenberg DO Date of Service: 06/03/19 Procedure(s): XR chest 1V portable [id number] Accession Number(s): [id number] Report Number: [id number] PROCEDURE INFORMATION: Exam: XR Chest, 1 View Exam date and time: 06/03/2019 8:54 PM Age: 59 years old Clinical indication: Other: Hypoxia TECHNIQUE: Imaging protocol: XR of the chest Views: 1 view. COMPARISON: CR Chest 1 [place] [id number] 04/23/2019 12:28 PM FINDINGS: Tubes, catheters and devices: There is stable positioning of the double-lumen catheter placed via the right internal jugular vein with its tip at the level of the superior cavoatrial junction. Lungs: There are strandy opacities superimposed over the left hemidiaphragm and, to a lesser extent, the right hemidiaphragm, findings that may represent atelectasis. Developing infiltrates and pneumonia cannot be entirely excluded. Pleural space: Unremarkable. No pleural effusion. No pneumothorax. Heart/Mediastinum: Unremarkable. No cardiomegaly. Bones/joints: Unremarkable. XR/XR chest 1V portable [id number] IMPRESSION: Probable bilateral basilar atelectasis although developing infiltrates and pneumonia cannot be entirely excluded. Dictated By:Emery Camara MD Signed By:Emery Camara MDSigned Date/Time:06/03/192157 DD/ 55 Other Xray: Radiologist's impression: [address] [address] XRay Report Signed Patient: Joshua Baugh #: [id number] : 9Acct#:[id number] Age/Sex: 59 / MADM Date: 06/03/19 Loc: ERRoom/Bed: Attending Dr: Ordering Provider/Ordering MD: Carloz Greenberg DO Date of Service: 06/03/19 Procedure(s): XR foot LT min 3V* [id number] Accession Number(s): [id number] Report Number: [id number] PROCEDURE INFORMATION: Exam: XR Left Foot Complete Exam date and time: 06/03/2019 8:54 PM Age: 59 years old Clinical indication: Injury or trauma; Injury history: Injured toes 6 weeks ago. PT states he has been going to wound care; Follow-up exam; Left great and left first toe and left middle toe; Without foreign body; Additional info: Pain TECHNIQUE: Imaging protocol: XR Left foot. Views: 3 or more views. COMPARISON: No relevant prior studies available. FINDINGS: Bones/joints: Diffuse joint space narrowing is seen within the interphalangeal joints of the left foot. Sclerosis and joint space narrowing is also seen within the tarsal and tarsometatarsal joints. There is apparent synostosis of the 5th metatarsophalangeal joint and 1st metatarsophalangeal joint of the left foot. Soft tissues: Normal. Vasculature: Diffuse vascular calcifications are seen. Other findings: There is severe diffuse demineralization. XR/XR foot LT min 3V* [id number] IMPRESSION: There are no acute osseous findings. Dictated By:Emery Camara MD Signed By:Emery Camara MDSigned Date/Time:06/03/192199 DD/ 57 Discharge Plan Discharge Patient Disposition: Home, Self-Care Clinical Impression: Gangrene of toe of left foot Condition: Stable Prescriptions: No Action clonidine HCl 0.1 mg Tablet 0.1 mg PO BID RF: 0 tramadol 50 mg Tablet 50 mg PO Q8H PRN (Reason: Pain) RF: 0 sildenafil [Viagra] 100 mg Tablet 100 mg PO DAILY PRN (Reason: Erectile Dysfunction) RF: 0 sevelamer carbonate [Renvela] 800 mg Tablet 800 mg PO TID RF: 0 prednisone 10 mg Tablet 10 mg PO DAILY RF: 0 febuxostat [Uloric] 80 mg Tablet 80 mg PO DAILY RF: 0 carvedilol 25 mg Tablet 25 mg PO BID RF: 0 alprazolam 0.5 mg Tablet 0.5 mg PO TID RF: 0 amlodipine 2.5 mg Tablet 2.5 mg PO DAILY RF: 0 hydrocodone-acetaminophen 5-325 mg Tablet 0.5 - 1 tab PO Q4H PRN (Reason: Pain) RF: 0 Discharge Orders: Discharge Order (Routine); Ordered 06/03/19 Ordered By: Carloz Greenberg Referrals: Nydia Chatman FNP [Family Provider] - Hiwot Herrera MD [Primary Care Provider] - Discharge Diet: Usual diet Discharge Activity: Resume usual activity Patient Instructions: Peripheral Artery Disease (ED) Activity Restrictions/Additional Instructions: Return for worsening redness, swelling, streaking to the left lower extremity. Return for fever greater than 100. Follow-up with the vascular surgeon/wound care surgeon as scheduled. Discharge Date/Time: 06/03/19 22:54 Coding Level of Care Code ED Medical Claims Assistant for Chg Fwd The documentation recorded by the Km marcos Stephanie Lyn, accurately reflects the service I personally performed and the decisions made by Dionicio benoit Jeremy John, DO Jun 03, 2019 20:39
--- NOTE | 2019-06-03 20:51 | XRR_ITS ---
PROCEDURE INFORMATION: Exam: XR Chest, 1 View Exam date and time: 06/03/2019 8:54 PM Age: 59 years old Clinical indication: Other: Hypoxia TECHNIQUE: Imaging protocol: XR of the chest Views: 1 view. COMPARISON: CR Chest 1 [place] [id number] 04/23/2019 12:28 PM FINDINGS: Tubes, catheters and devices: There is stable positioning of the double-lumen catheter placed via the right internal jugular vein with its tip at the level of the superior cavoatrial junction. Lungs: There are strandy opacities superimposed over the left hemidiaphragm and, to a lesser extent, the right hemidiaphragm, findings that may represent atelectasis. Developing infiltrates and pneumonia cannot be entirely excluded. Pleural space: Unremarkable. No pleural effusion. No pneumothorax. Heart/Mediastinum: Unremarkable. No cardiomegaly. Bones/joints: Unremarkable. XR/XR chest 1V portable [id number] IMPRESSION: Probable bilateral basilar atelectasis although developing infiltrates and pneumonia cannot be entirely excluded.
--- NOTE | 2019-06-03 20:51 | XRR_ITS ---
PROCEDURE INFORMATION: Exam: XR Left Foot Complete Exam date and time: 06/03/2019 8:54 PM Age: 59 years old Clinical indication: Injury or trauma; Injury history: Injured toes 6 weeks ago. PT states he has been going to wound care; Follow-up exam; Left great and left first toe and left middle toe; Without foreign body; Additional info: Pain TECHNIQUE: Imaging protocol: XR Left foot. Views: 3 or more views. COMPARISON: No relevant prior studies available. FINDINGS: Bones/joints: Diffuse joint space narrowing is seen within the interphalangeal joints of the left foot. Sclerosis and joint space narrowing is also seen within the tarsal and tarsometatarsal joints. There is apparent synostosis of the 5th metatarsophalangeal joint and 1st metatarsophalangeal joint of the left foot. Soft tissues: Normal. Vasculature: Diffuse vascular calcifications are seen. Other findings: There is severe diffuse demineralization. XR/XR foot LT min 3V* [id number] IMPRESSION: There are no acute osseous findings.
--- NOTE | 2019-06-03 20:56 | PC.NURSE ---
ekg done @2053 and shown to ER doctor
[2019-06-03 21:08] VITALS: RESP 18
[2019-06-03] MEDS: ondansetron 2 mg/ML SDV 2 mL 4 MG IVP (21:08)
[2019-06-03] MEDS: morphine 4 mg/mL SDV 1 mL IVP (21:08)
[2019-06-03 21:13] LABS: Basophils % 0.3 %; Eosinophils # 0.1 10^3/uL (0.0-0.8); Hematocrit 31.5 % (42.0-52.0); Lymphocytes # 1.4 10^3/uL (0.8-4.8); Lymphocytes % 17.6 %; Mean Corpuscular HGB Conc 31.7 g/dL (30.0-36.0); Mean Corpuscular Hemoglobin 32.1 pg (28.0-34.0); Mean Platelet Volume 9.3 fL (7.4-10.4); Monocytes # 0.5 10^3/uL (0.2-0.9); Monocytes % 6.8 %; Neutrophils # 5.5 10^3/uL (1.8-7.7); Neutrophils % 72.1 %; Nucleated Red Blood Cells % 0 %; Platelet Count 158 10^3/cmm (130-400); Red Blood Count 3.12 10^6/uL (4.1-5.3); Red Cell Distribution Width 14.7 % (12.1-15.1); White Blood Count 7.7 10^3/uL (4.0-10.0)
[2019-06-03] MEDS: amlodipine 5 mg Tablet PO (21:14)
[2019-06-03] MEDS: metoprolol tartrate 25 mg Tablet PO (21:14)
[2019-06-03 21:28] LABS: Anion Gap 18.2 (5-19); Blood Urea Nitrogen 42 mg/dL (8-23); Carbon Dioxide 26 mmol/L (22-29); Chloride 95 mmol/L (98-107); Lactate (Lactic Acid level) 0.7 mmol/L (0.5-2.2); Potassium 5.2 mmol/L (3.5-5.1); Sodium 134 mmol/L (136-145)
[2019-06-03 21:29] LABS: Alanine Aminotransferase 32 U/L (0-41); Albumin Level 3.6 g/dL (3.5-5.2); Alkaline Phosphatase 134 IU/L (40-130); Aspartate Amino Transferase 26 U/L (0-40); C Reactive Protein 128.8 mg/L (0.0-4.9); Calcium 9.5 mg/dL (8.5-10.5); Creatine Phosphokinase 87 U/L (39-308); Globulin 2.5 g/dL (1.3-4.6); Glomerular Filtration Rate 4.8 mL/min (90-130); Glucose 86 mg/dL (74-106); INR 1.02 (0.8-1.2); Partial Thromboplastin Time 32.6 SECONDS (23.9-36.7); Phosphorus 4.9 mg/dL (2.5-4.5); Total Bilirubin 0.6 mg/dL (0.15-1.2); Total Protein 6.1 g/dL (6.6-8.7)
[2019-06-03 22:09] LABS: Erythrocyte Sedimentation Rate 43 mm/hr (0-10)
[2019-06-03 22:48] VITALS: RESP 16
[2019-06-03] MEDS: morphine 4 mg/mL SDV 1 mL 2 MG IVP (22:48)
[2019-06-03 22:49] VITALS: BP 128/75; RESP 15; O2SAT 93
--- NOTE | 2019-06-04 05:43 | ECG_ITS ---
Measurements Intervals [place] Rate: 103 P: 49 NC: 136 QRS: 10 QRSD: 78 T: 73 QT: 310 QTc: 408 SINUS TACHYCARDIA NONSPECIFIC T-WAVE ABNORMALITY ABNORMAL RHYTHM ECG WARNING: DATA QUALITY MAY AFFECT INTERPRETATION Compared to ECG 04/23/2019 20:01:17 Ectopic atrial rhythm no longer present Atrial abnormality no longer present T-wave abnormality still present Electronically Signed On 06-04-2019 18:54:33 MATZO FORMING MACHINE OPERATOR by Hiwot Herrera M.D. [email or web address]
--- NOTE | 2019-06-05 16:37 | DCPLANNER ---
diabetes clinical manager had message to schedule a follow up appointment for patient with Wound Care. diabetes clinical manager called [facility], spoke with Juju, a follow up appointment is scheduled for Wednesday, 06.06.19, patient is aware of appointment.
--- NOTE | 2019-06-09 14:35 | DCPLANNER ---
Patient did attend appointment scheduled with Wound Care.
== END 2019-06-03 22:54 | disposition home or self-care (01) ==
PROVIDERS: Emergency Provider Emergency Medicine; Family Provider Nurse Practitioner Primary Care; PCP Internal Medicine Cardiovascular Disease
DX: I96 Gangrene, not elsewhere classified (principal); I10 Essential (primary) hypertension; I73.9 Peripheral vascular disease, unspecified; Z87.891 Personal history of nicotine dependence
CPT/HCPCS: 71045; 73630; 80053; 82550; 83605; 84100; 85025; 85610; 85651; 85730; 86140; 93005; 96374; 99281; J2270; J2405

== ENCOUNTER 2019-06-06 09:18 | Outpatient (RCR) | payer MEDICARE, MEDICAID, SELFPAY | END 2019-06-09 23:59 | disposition home or self-care (01) | LOC: WOUND 09:18 | PROVIDERS: Family Provider Nurse Practitioner Primary Care; Visit Provider Thoracic Surgery (Cardiothoracic Vascular Surgery) | DX: I73.9 Peripheral vascular disease, unspecified (principal); L97.522 Non-pressure chronic ulcer of other part of left foot with fat layer exposed | CPT/HCPCS: 11042; 99214; G0463 ==

== ENCOUNTER 2019-06-14 10:00 | Observation (INO) | payer MEDICARE, MEDICAID, SELFPAY ==
[2019-06-13 13:05] VITALS: BMI 24.0
[2019-06-14] VITALS (15 sets, daily range): BP systolic 95–168; BP diastolic 62–104; PULSE 68–92; RESP 12–22; TEMP 36.4–37.1; O2SAT 83–100
--- NOTE | 2019-06-14 06:05 | XRR_ITS ---
PROCEDURE INFORMATION: Exam: XR Chest, 1 View Exam date and time: 06/14/2019 6:22 AM Age: 59 years old Clinical indication: Screening exam; Pre-operative exam; Cardiovascular screening; Prior surgery; Surgery type: Port; Additional info: Pre procedure TECHNIQUE: Imaging protocol: XR of the chest Views: 1 view. COMPARISON: CR (CHEST, ) 06/03/2019 8:58 PM FINDINGS: Tubes, catheters and devices: Dialysis catheter via the right internal jugular approach with the tip in the region of the caval atrial junction. Lungs: Lungs are well aerated without a focal area of consolidation. Pleural space: Unremarkable. No pleural effusion. No pneumothorax. Heart/Mediastinum: Unremarkable. No cardiomegaly. Bones/joints: Unremarkable. XR/XR chest 1V portable [id number] IMPRESSION: Lungs are well aerated without a focal area of consolidation.
--- NOTE | 2019-06-14 06:44 | ANES.PREANE2 ---
Pre-Anesthetic Assessment Pre-Anesthetic Assessment: Height/Weight: Height 1.88 m Weight 84.822 kg Temp Pulse Resp BP Pulse Ox 98.6 F 87 18 156/103 98 06/14/19 06:20 06/14/19 06:20 06/14/19 06:20 06/14/19 06:20 06/14/19 06:20 Preop Diagnosis: left leg arterial insufficiency Proposed Procedure: Operation Date: 06/14/19 07:00 Proposed Procedures p Amputation Toe/s/transmetatarsal amputation of left foot(Left) - Braeden Kohc MD Was Beta Lima taken within 24 hours: Yes Last intake: 2:30 am Last Intake: 23:59 Social: Comment: quit 12 y of age, chews Exam: Pre-Anes Outpt Exam: alert, oriented x 3, clear to auscultation bilaterally and regular rate & rhythm Airway: Submandibular: WNL Cervical ROM: WNL MP: 1 Additional comments: very poor CV/HEM: CV/HEM: HTN : : Chronic renal failure Comments: dialysis, MWF, dialyzed 2/3 PFSH Anesthesia PFSH: Social History Smoking and tobacco status: former smoker Quit status (tobacco): has quit using tobacco Data Anesthesia Cardiac Studies: No Data to Display
[2019-06-14] MEDS: sodium chloride 0.9% 1,000 ML 30 ML IV ×2 (06:50→11:39)
--- NOTE | 2019-06-14 06:51 | PM.HPUD ---
H&P update H&P Update: DATE OF SURGERY/PROCEDURE: 06/14/19 DATE H&P PERFORMED: 06/06/19 H&P UPDATE INFORMATION: H&P completed within last 30 days, No changes to prior documentation and H&P to be scanned into chart PREOP DIAGNOSIS: left leg arterial insufficiency, gangrenous changes to left forefoot PRIMARY INDICATION FOR PROCEDURE: Tissue loss and gangrenous changes PLANNED PROCEDURE: Operation Date: 06/14/19 07:00 Proposed Procedures p Amputation Toe/s/transmetatarsal amputation of left foot(Left) - Braeden Koch MD Conscious Sedation: ADDITIONAL INFORMATION: Anesthesia Department to provide anesthesia with this procedure Full H&P Perinent History: Medical/Surgical History: Medical History (Updated 06/11/19 @ 00:00 by ) Critical lower limb ischemia (Acute) Hemodialysis patient (Acute) Hemodialysis 3 days a week Hypertension (Acute) Non-healing ulcer (Acute) Left Toe Peripheral vascular disease (Acute) Family History: Family History (Updated 05/12/19 @ 12:52 by Dedra Adams RN) Sister Cancer Social History: Social History Smoking and tobacco status: former smoker Quit status (tobacco): has quit using tobacco
[2019-06-14 07:22] LABS: INR 1.08 (0.8-1.2)
[2019-06-14] MEDS: lidocaine 1% INJ 20 mL IM (07:39)
[2019-06-14] MEDS: ceFAZolin 1,000 mg SDV 1000 MG IRRIGATION (07:40)
--- NOTE | 2019-06-14 09:28 | PM.OP ---
Operative Report Date of procedure: June 14, 2019 Pre-op Diagnosis: left leg arterial insufficiency, gangrenous changes to left forefoot Post-op diagnosis: same Procedure Done: Left transmetatarsal amputation Specimens removed/disposition: Left forefoot to pathology Pathology: Left forefoot Surgeon: Braeden Koch Anesthesia: General Estimated blood loss (mL): 50 Complications: None Condition: stable Disposition: ICU (Overflow as there are no [facility] beds) Brief History: 59-year-old diabetic gentleman with end-stage renal disease on chronic hemodialysis and severe peripheral vascular disease with gangrenous changes to his left forefoot. He has been followed in wound care clinic with progressive changes. He has been evaluated by Dr. Herrera for interventional cardiology. He has severe distal disease with calcific changes not amenable to intervention. With this soila tissue loss, transmetatarsal amputation is been recommended. Procedure: Patient was taken operating room placed in the supine position underwent general trach anesthesia. Appropriate IV access was confirmed prior to entering the OR suite. His left lower extremity from the knee through the foot was sterilely prepped and draped. The gangrenous aspects of the left forefoot distally were wrapped to be isolated to the remainder of the procedure. Incision line was marked with ink. #10 scalpel blade was utilized to incise the skin circumferentially. Large bridging veins were secured with hemostats and 3-0 silk ligature prior to division. This was continued down in a circumferential fashion to the metatarsals. The dorsalis pedis and posterior tibial arteries were heavily calcified with minimal bleeding upon transection. Once all soft tissue and associated fascia ligaments and tendons had been severed, oscillating saw was utilized to transect each metatarsal around midshaft. Following this, hemostasis was obtained with use of cautery very judiciously. Wound was irrigated with antibiotic solution remove all loose debris. Skin flaps were felt to be viable. Next, 500 mg of amnio fill was applied to the wound. Follow this, the fascia was closed with interrupted 2-0 Vicryl suture. Skin was then reapproximated with interrupted 3-0 nylon suture in a mattress fashion. Sterile dressings were applied. Mr. Baugh was awakened from anesthesia and extubated in stable condition. He will convalesce acutely in the ICU as an overflow as there are no floor beds immediately available. We will plan for scheduled hemodialysis in house this afternoon.
[2019-06-14] MEDS: morphine 4 mg/mL SDV 1 mL 2 MG IVP ×5 (10:27→17:47)
[2019-06-14] MEDS: LORazepam 2 mg/mL INJ 1 mL 1 MG IVP (10:28)
[2019-06-14] MEDS: oxyCODONE-APAP 10-325 mg Tablet 1 TAB PO ×3 (10:49→23:57)
[2019-06-14 11:58] LABS: Glucose Point of Care 104 mg/dL (70-110)
[2019-06-14] MEDS: ALPRAZolam 0.5 mg Tablet PO ×2 (14:28→20:13)
[2019-06-14 14:34] LABS: Anion Gap 18.4 (5-19); Blood Urea Nitrogen 40 mg/dL (8-23); Calcium 9.7 mg/dL (8.5-10.5); Carbon Dioxide 25 mmol/L (22-29); Chloride 101 mmol/L (98-107); Glomerular Filtration Rate 5.2 mL/min (90-130); Glucose 102 mg/dL (65-115); Osmolality Calculated 286 mOsm/kg (285-295); Potassium 5.4 mmol/L (3.5-5.1); Sodium 139 mmol/L (136-145)
[2019-06-14 16:54] LABS: Glucose Point of Care 91 mg/dL (70-110)
[2019-06-14] MEDS: predniSONE 10 mg Tablet PO (17:47)
[2019-06-14] MEDS: carvedilol 25 mg Tablet PO (17:47)
--- NOTE | 2019-06-14 18:00 | PC.NURSE ---
SHIFT UPDATE Patient very agitated throughout this shift. Verbally abusive towards staff. Security called multiple times. Attempt to redirect and calm patient without success. 1:[address] as patient kept trying to get out of bed, pull at tubes, and take off dressing. At one point in shift, patient ripped off dressing on foot, patient bleeding on floor and refusing to stay in bed as well as listen to nurse when attempting to re-dress wound to stop bleeding. New dressing placed when security arrived and patient became cooperative. Dr. Koch notified.
[2019-06-14 20:01] LABS: Anion Gap 18.8 (5-19); Blood Urea Nitrogen 44 mg/dL (8-23); Calcium 9.3 mg/dL (8.5-10.5); Carbon Dioxide 23 mmol/L (22-29); Chloride 103 mmol/L (98-107); Glomerular Filtration Rate 4.6 mL/min (90-130); Glucose 105 mg/dL (65-115); Osmolality Calculated 286 mOsm/kg (285-295); Potassium 5.8 mmol/L (3.5-5.1); Sodium 139 mmol/L (136-145)
[2019-06-14] MEDS: sevelamer 800 mg Tablet PO (20:13)
[2019-06-14 22:14] LABS: Glucose Point of Care 102 mg/dL (70-110)
[2019-06-15] VITALS (8 sets, daily range): BP systolic 116–168; BP diastolic 73–92; PULSE 87–98; RESP 18–20; TEMP 36.8–37; O2SAT 85–96
[2019-06-15] MEDS: morphine 4 mg/mL SDV 1 mL 2 MG IVP (00:51)
[2019-06-15 04:18] LABS: Basophils % 0.2 %; Eosinophils % 0.2 %; Hemoglobin 9.4 g/dL (11.7-16.6); Lymphocytes # 1.5 10^3/uL (0.8-4.8); Lymphocytes % 15.5 %; Mean Corpuscular HGB Conc 29.4 g/dL (30.0-36.0); Mean Corpuscular Hemoglobin 31.3 pg (28.0-34.0); Mean Corpuscular Volume 106.7 fL (80-94); Mean Platelet Volume 9.3 fL (7.4-10.4); Monocytes # 0.5 10^3/uL (0.2-0.9); Monocytes % 5.5 %; Neutrophils # 7.3 10^3/uL (1.8-7.7); Neutrophils % 75.6 %; Nucleated Red Blood Cells % 0.2 %; Platelet Count 261 10^3/cmm (130-400); Red Cell Distribution Width 13.9 % (12.1-15.1); White Blood Count 9.6 10^3/uL (4.0-10.0)
[2019-06-15 04:46] LABS: Anion Gap 18.3 (5-19); Blood Urea Nitrogen 52 mg/dL (8-23); Calcium 9.4 mg/dL (8.5-10.5); Carbon Dioxide 22 mmol/L (22-29); Chloride 102 mmol/L (98-107); Glomerular Filtration Rate 4.3 mL/min (90-130); Glucose 98 mg/dL (65-115); Osmolality Calculated 278 mOsm/kg (285-295); Sodium 135 mmol/L (136-145)
[2019-06-15 05:11] LABS: Potassium 7.3 mmol/L (3.5-5.1)
[2019-06-15 06:16] LABS: Glucose Point of Care 99 mg/dL (70-110)
--- NOTE | 2019-06-15 06:58 | P.PN_ITS ---
Subjective Subjective: Interval history: Postop day #1 status post transmetatarsal amputation. changes and much better spirits this morning. He is cooperative with the nurses. It is noted that his potassium is over 7, though yesterday was his normal day for dialysis. He is scheduled for first thing this morning. Surgical dressing is dry. He is eager to receive dialysis and then be discharged. We will need to arrange home health. Vitals/I&O/Wt Last Vital Signs Temp 98.3 F 06/15/19 06:15 Pulse 87 06/15/19 06:15 Resp 20 H 06/15/19 06:15 BP 153/82 06/15/19 06:15 Pulse Ox 85 L 06/15/19 06:15 06/14/19 06/14/19 06/15/19 14:59 22:59 06:59 Intake Total 50 / 50 120 / 170 120 / 290 Output Total 200 / 200 300 / 500 Balance 50 / 50 -80 / -30 -180 / -210 Weight last 48 hrs Weight 187 lb Weight 187 lb Physical Exam Extremity: OTHER: Surgical dressing remains in place. The nurses are performing morning rounds. I will change the dressing later. Data : 06/15/19 03:30 06/15/19 03:30 A&P Assessment and plan (1) Status post transmetatarsal amputation of left foot: Postop day 1 status post left transmetatarsal amputation. Hyperkalemia, due for dialysis first thing this morning Will tentatively plan for discharge to home today and follow-up in wound care services. Status: Acute Code(s): Z89.432 - Acquired absence of left foot Attestations Medical Necessity Statement*: Gangrenous changes right foot, status post transmetatarsal irritation Time Spent in Patient Care: less than 15 minutes Coding Level of Care Code Acute Fitting Room Associate for [facility] Fwd Diagnoses Status post transmetatarsal amputation of left foot Z89.432
[2019-06-15] MEDS: oxyCODONE-APAP 10-325 mg Tablet 1 TAB PO ×2 (07:46→13:02)
--- NOTE | 2019-06-15 12:09 | PC.CHAP ---
Pastoral Care Encounter/Spiritual Assessment Type of Contact [] Declined dive master visit [] Patient/Family/Request visit [] Outpatient visit [] Follow-up visit [] Physician referral [] Code/Alert [] Routine visit [] Staff referral [] Actively dying [] Patient sleeping [] Family support [] [x] Out of room [] Palliative care [] [] Receiving care in room [] Pre-surgical visit [] Trauma [] Long length of stay [] ICU visit [] Other: Relational/Emotional Strength [] Patient feels connected with others/family/visitors/staff [] Distress [] Loneliness/isolation [] Abandonment Spirituality of Patient [] Person of Tabitha [] Attends [facility] of their Tabitha [] Believes in Prayer [] Reads Bible or Gnosticist materials [] There are Spiritual issues to be addressed Manager [employer] Interventions [] Prayer [] Active listening [] Non-anxious presence [] Spiritual/emotional support [] Crisis/trauma care [] Spiritual counseling [] Bereavement support [] Provided bereavement packet [] Provided Bible/devotional materials [] Provided toy/stuffed animal, coloring book to patient or family member [] Provided Communion [] Anointing/[place] [] Salvation [] Completed spiritual assessment [] Other: Impact on Illness or Injury [] Angry [] Fearful [] Anxious [] Often cries [] Exhaustion [] Unable to work [] Unable to attend mu-ism [] Unable to walk/stand [] Unable to read [] Unable to drive [] Unable to eat/drink [] Unable to sleep [] Unable to be with family [] Patient intubated [] Other: Summary Follow up vist needed. Time spent with patient
[2019-06-15] MEDS: cloNIDine 0.1 mg Tablet PO (12:55)
[2019-06-15] MEDS: ALPRAZolam 0.5 mg Tablet PO (12:59)
[2019-06-15] MEDS: sevelamer 800 mg Tablet PO (12:59)
[2019-06-15] MEDS: carvedilol 25 mg Tablet PO (13:00)
[2019-06-15] MEDS: amlodipine 5 mg Tablet 2.5 MG PO (13:00)
[2019-06-15] MEDS: predniSONE 10 mg Tablet PO (13:01)
[2019-06-15] MEDS: pantoprazole DR 40 mg Tablet PO (13:01)
[2019-06-15 13:02] LABS: Glucose Point of Care 77 mg/dL (70-110)
[2019-06-15] MEDS: nicotine 14 mg Patch 1 PATCH TRANSDERMA (13:02)
--- NOTE | 2019-06-15 13:25 | P.DS_ITS ---
Discharge Providers Date of Admission: 06/14/19 10:00 Date of Discharge: Date of Discharge: June 15, 2019 Attending Provider at Admission: Braeden Koch MD Attending Provider at Discharge: Braeden Koch MD Primary Care Provider: Hiwot Herrera MD Diagnoses at Discharge Discharge Diagnosis (1) Status post transmetatarsal amputation of left foot: Status: Acute Problem details: Severe, non-reconstructable peripheral vascular disease with gangrenous changes left forefoot Reason for Visit Reason for Visit: Reason For Visit: Peripheral Vascular Disease I96 Hospital Course Hospital Course: Mr. Baugh was electively admitted with non-reconstructable severe peripheral vascular disease and gangrenous changes to the left forefoot. He has end-stage renal disease and is on chronic hemodialysis. Left transmetatarsal amputation was performed on June 14. He convalesced overnight for pain control and planned hemodialysis. This was performed this morning. He is eager for discharge to home. He will be discharged in stable condition with home health services. He will follow-up in wound care services next June 20. Discharge Summary: Status post left transmetatarsal amputation June 14 for non-reconstructable severe peripheral vascular disease with gangrenous changes to the left forefoot. Received hemodialysis this morning prior to planned discharge this afternoon with home health services. Follow-up wound care services June 20 Physical Exam Extremity: OTHER: Left forefoot transmetatarsal amputation incision is clean, intact, and dry. Discharge Data Data Completed and Pending: Completed Studies During Hospitalization Category Date Time Status XR chest 1V luciano ble [id number] Stat Exams 06/14/19 06:05 Completed Pending at discharge Category Date Time Status PRBC [Leukocyte R educed RBC] Stat Lab 06/14/19 06:34 Results Type and Screen S tat Lab 06/14/19 06:34 Results Pathology: Surgic al [PTH] Routine Pth 06/14/19 09:46 Received Labs from last 24 hours 06/15/19 06/15/19 06/15/19 12:59 05:54 03:30 WBC RBC Hgb Hct MCV MCH MCHC RDW Plt Count MPV Neut % (Auto) Lymph % (Auto) [place] % (Auto) Eos % (Auto) Baso % (Auto) Neut # (Auto) Lymph # (Auto) [place] # (Auto) Eos # (Auto) Baso # (Auto) Nucleated RBC % (a uto) Nucleated RBCs # Sodium 135 L Potassium 7.3 H* D Chloride 102 Carbon Dioxide 22 Anion Gap 18.3 BUN 52 H Creatinine 12.2 H* GFR Calculation 4.3 L Glucose 98 POC Glucose 77 99 Calculated Osmolal ity 278 L Calcium 9.4 06/15/19 06/14/19 06/14/19 03:30 21:47 19:40 WBC 9.6 RBC 3.00 L Hgb 9.4 L Hct 32.0 L MCV 106.7 H MCH 31.3 MCHC 29.4 L RDW 13.9 Plt Count 261 MPV 9.3 Neut % (Auto) 75.6 Lymph % (Auto) 15.5 [place] % (Auto) 5.5 Eos % (Auto) 0.2 Baso % (Auto) 0.2 Neut # (Auto) 7.3 Lymph # (Auto) 1.5 [place] # (Auto) 0.5 Eos # (Auto) 0.0 Baso # (Auto) 0.0 Nucleated RBC % (a uto) 0.2 Nucleated RBCs # 0.0 Sodium 139 Potassium 5.8 H Chloride 103 Carbon Dioxide 23 Anion Gap 18.8 BUN 44 H Creatinine 11.5 H* GFR Calculation 4.6 L Glucose 105 POC Glucose 102 Calculated Osmolal ity 286 Calcium 9.3 06/14/19 06/14/19 16:50 06:34 WBC RBC Hgb Hct MCV MCH MCHC RDW Plt Count MPV Neut % (Auto) Lymph % (Auto) [place] % (Auto) Eos % (Auto) Baso % (Auto) Neut # (Auto) Lymph # (Auto) [place] # (Auto) Eos # (Auto) Baso # (Auto) Nucleated RBC % (a uto) Nucleated RBCs # Sodium 139 Potassium 5.4 H Chloride 101 Carbon Dioxide 25 Anion Gap 18.4 BUN 40 H Creatinine 10.3 H* GFR Calculation 5.2 L Glucose 102 POC Glucose 91 Calculated Osmolal ity 286 Calcium 9.7 Vitals: Last Vital Signs Temp 98.6 F 06/15/19 08:44 Pulse 92 06/15/19 08:44 Resp 18 06/15/19 13:02 BP 168/92 06/15/19 12:55 Pulse Ox 92 06/15/19 08:44 Discharge Plan Discharge Patient Disposition: Home Health Service Condition: Stable Prescriptions: New hydrocodone-acetaminophen 5-325 mg tablet 1 tab PO Q6H PRN (Reason: pain) Qty: 30 RF: 0 Continued clonidine HCl 0.1 mg Tablet 0.1 mg PO BID RF: 0 tramadol 50 mg Tablet 50 mg PO Q8H PRN (Reason: Pain) RF: 0 sevelamer carbonate [Renvela] 800 mg Tablet 800 mg PO TID RF: 0 prednisone 10 mg Tablet 10 mg PO BID RF: 0 carvedilol 25 mg Tablet 25 mg PO BID RF: 0 alprazolam 0.5 mg Tablet 0.5 mg PO TID RF: 0 amlodipine 2.5 mg Tablet 2.5 mg PO DAILY RF: 0 hydrocodone-acetaminophen 5-325 mg Tablet 0.5 - 1 tab PO Q4H PRN (Reason: Pain) RF: 0 Discharge Orders: Discharge Order (Routine); Ordered 06/15/19 Ordered By: Braeden Koch Referrals: Wound Care [Provider Group] - 06/20/19 9:00 am Discharge Diet: Usual diet Discharge Activity: Limit activity as instructed Activity Restrictions/Additional Instructions: May remove bandage in 2 days May begin daily showers in 2 days No swimming or tub baths x 2 weeks No ointments on incision Report drainage, redness, heat, increased pain, or swelling to clinic No ambulation or weightbearing on amputation site. Use crutches or wheelchair as needed. Keep leg elevated as much as possible. Keep scheduled outpatient dialysis appointment tomorrow. Discharge Attestations Time Spent in Discharge Care*: less than 30 min Specific Discharge Activities: Specific discharge activities: educating patient, discussing with pcp/other providers and documenting/other paperwork Quality Metrics Clinical Quality Measures During this hospital stay, did patient experience: None Coding Level of Care Code Acute Screening Unit Registered Nurse for Rafael Fwd Diagnoses Status post transmetatarsal amputation of left foot Z89.432
[2019-06-15] MEDS: TRAMadol 50 mg Tablet PO (14:30)
--- NOTE | 2019-06-15 14:59 | P.PN_ITS ---
Subjective Subjective: Interval history: Postop day #1 status post transmetatarsal amputation. S/p dialysis today and this went well with 2.8L UF. No uremic Sx and no vol overload. Vitals/I&O/Wt Last Vital Signs Temp 98.6 F 06/15/19 08:44 Pulse 92 06/15/19 08:44 Resp 18 06/15/19 13:42 BP 168/92 06/15/19 12:55 Pulse Ox 92 06/15/19 08:44 06/14/19 06/15/19 06/15/19 22:59 06:59 14:59 Intake Total 120 / 170 120 / 290 360 / 360 Output Total 200 / 200 300 / 500 325 / 325 Balance -80 / -30 -180 / -210 35 / 35 Physical Exam Const: COMMON NORMALS: no apparent distress, average body habitus and alert Eye: COMMON NORMALS: EOMs intact bilaterally EYELID: eyelids normal and eyelid abnormal Neck/C-Spine: COMMON NORMALS: no JVD Lymph: LYMPHATIC: no lymphadenopathy noted and no lymphedema noted Chest: COMMONS NORMALS: inspection of chest normal and palpation of chest normal Resp: COMMON NORMALS: normal respiratory effort and no retractions Cardio: COMMON NORMALS: no JVD and regular rate RATE: regular rate GI: COMMON NORMALS: normal to inspection, nondistended, normoactive bowel sounds Neuro: SENSORIUM/ORIENTATION: Yes alert Data : 06/15/19 03:30 06/15/19 03:30 A&P Additional A&P Information 1. ESRD - s/p dialysis today, next session on Wednesday in the outpatient clinic. will dialyze him on Wednesday if he happens to be here 2. s/p TMA POD 1 - per surg inc PT/OT/Analgesics/wound care etc 3. Hemodynamics - Bp high post HD; to resume OP meds - pending DC today Attestations Medical Necessity Statement*: mgmt of ESRD Coding Level of Care Code Acute Passenger Booking Clerk for Rafael Chambers
--- NOTE | 2019-06-15 19:36 | ANE.PACU2 ---
 Inpatient post-anesthesia follow up: Airway intact: Yes Vital signs: Temperature 98.2 F Pulse Rate 98 Respiratory Rate 18 Blood Pressure 116/81 Pulse Oximetry 96 Oxygen Delivery Me thod Room Air Oxygen Flow Rate Fraction of Inspir ed Oxygen Hydration adequate: Yes Nausea and vomiting: No Mental status: Baseline
== END 2019-06-15 17:16 | disposition home health service (06) ==
LOC: MEDSURG 06-15 09:24 → ICU 06-15 09:24
PROVIDERS: Internal Medicine Nephrology; Admitting Provider Thoracic Surgery (Cardiothoracic Vascular Surgery); Family Provider Nurse Practitioner Primary Care; PCP Internal Medicine Cardiovascular Disease; Visit Provider Thoracic Surgery (Cardiothoracic Vascular Surgery)
PROC: (CPT 28805; principal; 2019-06-14 07:00)
DX: I77.1 Stricture of artery (principal); I12.0 Hypertensive chronic kidney disease with stage 5 chronic kidney disease or end stage renal disease; N18.6 End stage renal disease; Z79.891 Long term (current) use of opiate analgesic; Z87.891 Personal history of nicotine dependence
CPT/HCPCS: 28805; 12345; 36415; 36416; 71045; 80048; 82962; 85025; 85610; 86850; 86900; 88305; 90935; 96375; 97161; G0378; G0463; J0690; J2001; J2060; J2250; J2270; J2405; J2704; J3010; J3490; J7030; J7512; Q3014

== ENCOUNTER 2019-07-04 07:58 | Outpatient (RCR) | payer MEDICARE, MEDICAID, SELFPAY | END 2019-07-08 23:59 | disposition home or self-care (01) | LOC: WOUND 07:58 | PROVIDERS: Family Provider Nurse Practitioner Primary Care; PCP Internal Medicine Cardiovascular Disease; Visit Provider Thoracic Surgery (Cardiothoracic Vascular Surgery) | DX: I73.9 Peripheral vascular disease, unspecified (principal); L97.529 Non-pressure chronic ulcer of other part of left foot with unspecified severity | CPT/HCPCS: 99212; G0463 ==

== ENCOUNTER 2019-08-08 08:13 | Outpatient (RCR) | payer MEDICARE, MEDICAID, SELFPAY | END 2019-08-08 23:59 | disposition home or self-care (01) | LOC: WOUND 08:13 | PROVIDERS: Family Provider Nurse Practitioner Primary Care; PCP Internal Medicine Cardiovascular Disease; Visit Provider Thoracic Surgery (Cardiothoracic Vascular Surgery) | DX: T81.31XA Disruption of external operation (surgical) wound, not elsewhere classified, initial encounter (principal); Y83.8 Other surgical procedures as the cause of abnormal reaction of the patient, or of later complication, without mention of misadventure at the time of the procedure; Z89.422 Acquired absence of other left toe(s) | CPT/HCPCS: 97597; 99211; 99212; 99213; G0463 ==

== ENCOUNTER 2019-08-28 01:08 | Inpatient (IN) | payer MEDICARE, MEDICAID, SELFPAY ==
[2019-08-28] VITALS (44 sets, daily range): BP systolic 81–154; BP diastolic 49–90; PULSE 81–110; RESP 15–37; TEMP 36.9–38.1; O2SAT 86–99
--- NOTE | 2019-08-28 01:31 | CTR_ITS ---
PROCEDURE INFORMATION: Exam: CT Head Without Contrast Exam date and time: 08/28/2019 1:38 AM Age: 59 years old Clinical indication: Altered mental status/memory loss; Confusion or disorientation; Additional info: AMS TECHNIQUE: Imaging protocol: Computed tomography of the head without contrast. Total DLP: 895.24 mGy-cm Radiation optimization: All CT scans at this facility use at least one of these dose optimization techniques: automated exposure control; mA and/or kV adjustment per patient size (includes targeted exams where dose is matched to clinical indication); or iterative reconstruction. COMPARISON: No relevant prior studies available. FINDINGS: Brain: No acute intracranial hemorrhage or mass effect. There is very mild decreased attenuation in the periventricular white matter, likely from microvascular disease. No definite acute infarct by CT. MRI could be more sensitive/specific for detection, as clinically directed. Ventricles: Ventricle size is normal for age. Bones/joints: No definite acute skull fracture. Sinuses: Very mild mucosal thickening in the ethmoid, maxillary, and frontal sinuses. Included paranasal sinuses otherwise appear essentially clear. Mastoid air cells: There may be partial opacification/fluid involving some right mastoid air cells. Alternatively this might represent an area of fibrous dysplasia involving the adjacent petrous bone. Vasculature: Vascular calcifications in the internal carotid and vertebral basilar systems. CT/CT head wo con* [id number] IMPRESSION: 1. No acute intracranial hemorrhage or mass effect. 2. No definite acute infarct by CT, see above. 3. Paranasal and mastoid sinus findings as discussed above. 4. Other findings discussed above. Radiation Dose CTDIVOL = (mGy): DLP = 895.24 (mGy-cm)
--- NOTE | 2019-08-28 01:31 | XR_ITS ---
WS: [id number] CHEST XRAY TECHNIQUE: Portable chest. CLINICAL INFORMATION: cough COMPARISON: June 14, 2019 FINDINGS: Right central venous catheter with tip in the right atrium. Shallow inspiration. Heart: Cardiomegaly. Lungs: Subsegmental atelectasis in the lung bases. No focal pneumonia. Bones: Normal visualized bony structures. XR/XR chest 1V portable [id number] IMPRESSION: 1. Shallow inspiration with subsegmental atelectasis in the lung bases. No foc al pneumonia. 2. Stable dual lumen right central venous catheter.
[2019-08-28] MEDS: morphine 4 mg/mL SDV 1 mL IVP (02:04)
[2019-08-28 02:05] LABS: Basophils % 0.1 %; Eosinophils # 0.2 10^3/uL (0.0-0.8); Eosinophils % 1.3 %; Hematocrit 37.4 % (42.0-52.0); Hemoglobin 11.5 g/dL (11.7-16.6); Lymphocytes # 1.6 10^3/uL (0.8-4.8); Lymphocytes % 13.8 %; Mean Corpuscular HGB Conc 30.7 g/dL (30.0-36.0); Mean Corpuscular Hemoglobin 32.7 pg (28.0-34.0); Mean Corpuscular Volume 106.3 fL (80-94); Monocytes # 0.8 10^3/uL (0.2-0.9); Monocytes % 6.5 %; Neutrophils # 8.9 10^3/uL (1.8-7.7); Neutrophils % 77.3 %; Nucleated Red Blood Cells % 0 %; Platelet Count 173 10^3/cmm (130-400); Red Blood Count 3.52 10^6/uL (4.1-5.3); Red Cell Distribution Width 15.8 % (12.1-15.1); White Blood Count 11.5 10^3/uL (4.0-10.0)
[2019-08-28] MEDS: sodium chloride 0.9% 500 ML IV (02:05)
[2019-08-28] MEDS: ondansetron 2 mg/ML SDV 2 mL 4 MG IVP (02:05)
[2019-08-28] MEDS: haloperidol inj 5 mg/mL INJ 1 mL IVP (02:10)
[2019-08-28] MEDS: acetaminophen 325 mg Tablet 650 MG PO ×2 (02:10→19:45)
[2019-08-28 02:14] LABS: ABG PH Result 7.51 (7.35-7.45); Arterial Blood Gas Hematocrit 36.1 % (42-52); Base Excess ABG -2.2 mmol/L (-2.0-2.0); Blood Gas Allen Test Pos; Blood Gas Sample Site Brachial, left; Blood Gas Sample Type Arterial; HCO3 ABG 19.3 mmol/L (22-26)
[2019-08-28] MEDS: haloperidol inj 5 mg/mL INJ 1 mL 2 MG IVP (02:19)
[2019-08-28 02:23] LABS: Alanine Aminotransferase 16 U/L (0-41); Albumin Level 3.4 g/dL (3.5-5.2); Alkaline Phosphatase 78 IU/L (40-130); Anion Gap 29.9 (5-19); Aspartate Amino Transferase 17 U/L (0-40); Blood Urea Nitrogen 64 mg/dL (8-23); Carbon Dioxide 23 mmol/L (22-29); Chloride 89 mmol/L (98-107); Creatine Phosphokinase 75 U/L (39-308); Globulin 3.8 g/dL (1.3-4.6); Glomerular Filtration Rate 3.5 mL/min (90-130); Glucose 106 mg/dL (65-115); Osmolality Calculated 281 mOsm/kg (285-295); Potassium 5.9 mmol/L (3.5-5.1); Sodium 136 mmol/L (136-145); Total Bilirubin 0.4 mg/dL (0.15-1.2); Total Protein 7.2 g/dL (6.6-8.7)
[2019-08-28 02:24] LABS: Lactate (Lactic Acid level) 1.4 mmol/L (0.5-2.2)
[2019-08-28 02:28] LABS: Acetaminophen < 5.0 ug/mL (10-30); Alcohol Level < 10 mg/dL (0-10); Salicylate < 0.3 mg/dL (3-10)
[2019-08-28] MEDS: midazolam 1 mg/mL INJ 2 mL 2 MG IVP (02:28)
--- NOTE | 2019-08-28 02:32 | W.ED.AMS ---
HPI - Altered Mental Status General: Chief Complaint: Altered Mental Status Stated Complaint: generalized weakness Time Seen by Provider: 08/28/19 01:12 History of Present Illness: HPI narrative: This gentleman is a 59-year-old male dialysis patient. Evidently, he had dialysis on Wednesday. He has not felt well since. He has been laying on the couch at home. His family stated that he was delirious. He had not got off the couch. He reportedly had a fever at home. He refused to come to the hospital, so his family got a court ordered 96-hour hold placed on him so that he would have to come be evaluated. He is not answering any questions for us. complaint: confusion Onset (ago): day(s) (3) Timing confirmed by: family member Severity: moderate Consistency of symptoms: Getting Worse Context: recent fever Associated symptoms: Reports delusions; Deny homicidal ideation or suicidal ideation Review of Systems Const: Reports: fever and chills ENMT: Denies: painful swallowing or facial/sinus pain Card: Denies: chest pain, shortness of breath on exertion or shortness of breath when lying down Resp: Denies: shortness of breath, productive cough, non-productive cough or wheezing GI: Denies: abdominal pain, nausea or vomiting : Denies: painful urination Musc: Reports: neck pain and back pain Skin/Breast: Denies: rash Neuro: Reports: confusion; Denies: headache or dizziness Psych: Denies: suicidal ideation or homicidal ideation PFS ED PFSH: Medical History (Updated 08/28/19 @ 05:52 by Nelson Copeland MD) Arthritis Chronic kidney disease (CKD) Critical lower limb ischemia Diabetes Uncontrolled Hemodialysis patient Hemodialysis 3 days a week Hypertension Non-healing ulcer Left Toe Peripheral vascular disease Surgical History (Updated 08/28/19 @ 05:52 by Nelson Copeland MD) History of colostomy History of partial colectomy History of prostate surgery Status post transmetatarsal amputation of left foot Severe, non-reconstructable peripheral vascular disease with gangrenous changes left forefoot Social History Smoking and tobacco status: never smoked Quit status (tobacco): has quit using tobacco Physical Exam Const: GENERAL APPEARANCE: disheveled and ill appearing ORIENTATION/CONSCIOUSNESS: Yes oriented to person and Yes oriented to place; not oriented to time HENMT: COMMON NORMALS: normocephalic and external ears normal HEAD & SCALP: normocephalic FACE & SINUS: normal facial exam EXTERNAL EAR: Yes external ears normal TEETH & GINGIVA: no abnormal tooth and associated gingiva Eye: COMMON NORMALS: PERRL, EOMs intact bilaterally and conjunctivae normal EYELID: eyelids normal CONJUNCTIVA: Yes conjunctivae normal PUPIL: Yes PERRL Neck/C-Spine: GENERAL: No tracheal deviation Chest: COMMONS NORMALS: inspection of chest normal CHEST: No tenderness Resp: COMMON NORMALS: clear to auscultation bilaterally EFFORT & INSPECTION: No tachypneic, No respiratory distress, No retractions, No uses accessory muscles and No tracheal deviation AUSCULTATION: clear to auscultation bilaterally, no rhonchi, no wheezes and lung sounds not diminished Cardio: COMMON NORMALS: regular rate and regular rhythm RATE: regular rate RHYTHM: regular rhythm HEART SOUNDS: no murmurs PERIPHERAL PULSES: radial pulses present GI: INSPECTION: No abdominal distension AUSCULTATION: No hypoactive bowel sounds PALPATION: No guarding and No rigid PERCUSSION: no dullness to percussion and no tympanic to percussion Neuro: SENSORIUM/ORIENTATION: Yes oriented to person, Yes oriented to place and No oriented to time Psych: COMMON NORMALS: speech normal ATTITUDE: Yes agitated ACTIVITY/MOTOR BEHAVIOR: Yes fidgeting SPEECH: Yes normal speech THOUGHT PROCESS: circumstantial THOUGHT CONTENT: Yes delusion(s) INSIGHT: limited Skin: COMMON NORMALS: no rashes or lesions noted GENERAL SKIN EXAM: no rashes or lesions noted Course Vital Signs: Vital signs: Vital Signs Temperature 98.5 F 08/28/19 01:10 Pulse Rate 90 08/28/19 05:30 Respiratory Rate 16 08/28/19 05:30 Blood Pressure 129/57 08/28/19 05:30 Pulse Oximetry 92 08/28/19 05:30 MDM - Altered Mental Status MDM Narrative: Medical decision making narrative: 59-year-old male brought in under 96-hour hold, placed on him by his family with a court order because he would not come in on his own to be evaluated. He has mental status changes. He is a dialysis patient. Evidently he had a fever at home. His white blood cell count is 11.5. His creatinine is 14.4. His potassium is mildly elevated. Hemoglobin 11.5. Chest x-ray showed a left lower lobe infiltrate. CT to confirm shows bilateral lower lobe infiltrates. His urine does not appear infected. He is received 750 of Levaquin here. He will be admitted. Hospitalist has seen the patient in the ER. Lab Data: Labs: Lab Results 08/28/19 08/28/19 08/28/19 Range/Units 01:55 01:55 01:55 WBC 11.5 H (4.0-10.0) 10^3/ uL RBC 3.52 L (4.1-5.3) 10^6/u L Hgb 11.5 L (11.7-16.6) g/dL Hct 37.4 L (42.0-52.0) % MCV 106.3 H (80-94) fL MCH 32.7 (28.0-34.0) pg MCHC 30.7 (30.0-36.0) g/dL RDW 15.8 H (12.1-15.1) % Plt Count 173 (130-400) 10^3/c mm MPV 10.0 (7.4-10.4) fL Neut % (Auto) 77.3 % Lymph % (Auto) 13.8 % [place] % (Auto) 6.5 % Eos % (Auto) 1.3 % Baso % (Auto) 0.1 % Neut # (Auto) 8.9 H (1.8-7.7) 10^3/u L Lymph # (Auto) 1.6 (0.8-4.8) 10^3/u L [place] # (Auto) 0.8 (0.2-0.9) 10^3/u L Eos # (Auto) 0.2 (0.0-0.8) 10^3/u L Baso # (Auto) 0.0 (0.0-0.1) 10^3/u L Nucleated RBC % (a uto) 0 % Nucleated RBCs # 0.0 /100WBC Specimen Type Sample Site ABG pH (7.35-7.45) ABG pCO2 (35-45) mmHg ABG HCO3 (22-26) mmol/L ABG Base Excess (-2.0-2.0) mmol/ L Miguel Test Hematocrit (42-52) % O2 Delivery Device FiO2 % Media Liaison Officer ID Sodium 136 (136-145) mmol/L Potassium 5.9 H (3.5-5.1) mmol/L Chloride 89 L (98-107) mmol/L Carbon Dioxide 23 (22-29) mmol/L Anion Gap 29.9 H (5-19) BUN 64 H (8-23) mg/dL Creatinine 14.4 H* (0.7-1.2) mg/dL GFR Calculation 3.5 L (90-130) mL/min Glucose 106 (65-115) mg/dL Estimat Average Gl ucose Hemoglobin A1c (4.0-6.0) % Calculated Osmolal ity 281 L (285-295) mOsm/k g Lactate 1.4 (0.5-2.2) mmol/L Calcium 11.0 H (8.5-10.5) mg/dL Phosphorus (2.5-4.5) mg/dL Magnesium (1.7-2.3) mg/dL Total Bilirubin 0.4 (0.15-1.2) mg/dL AST 17 (0-40) U/L ALT 16 (0-41) U/L Alkaline Phosphata se 78 (40-130) IU/L Creatine Kinase 75 (39-308) U/L Total Protein 7.2 (6.6-8.7) g/dL Albumin 3.4 L (3.5-5.2) g/dL Globulin 3.8 (1.3-4.6) g/dL Procalcitonin (0-0.5) ng/mL Urine Color (Yellow) Urine Appearance (CLEAR) Urine pH (5-7) Ur Specific Gravit y (1.005-1.030) Urine Protein (Negative) Urine Glucose (UA) (Normal) Urine Ketones (Negative) Urine Blood (Negative) Urine Nitrate (Negative) Urine Bilirubin (NEGATIVE) Prot Sulfosalicyli c Acd (Negative) Urine Urobilinogen (Negative) mg/dL Ur Leukocyte Karen ase (Negative) Urine RBC (0-2) /hpf Urine WBC (0-5) /hpf Ur Squamous Epith Cells (0-5) Ur Transition Epit h Cell /hpf Urine Bacteria (NONE) Other Casts /lpf Urine Mucus Urine Sperm Salicylates < 0.3 L (3-10) mg/dL Acetaminophen < 5.0 L (10-30) ug/mL Ethyl Alcohol < 10 (0-10) mg/dL 08/28/19 08/28/19 08/28/19 Range/Units 01:55 01:55 01:55 WBC (4.0-10.0) 10^3/ uL RBC (4.1-5.3) 10^6/u L Hgb (11.7-16.6) g/dL Hct (42.0-52.0) % MCV (80-94) fL MCH (28.0-34.0) pg MCHC (30.0-36.0) g/dL RDW (12.1-15.1) % Plt Count (130-400) 10^3/c mm MPV (7.4-10.4) fL Neut % (Auto) % Lymph % (Auto) % [place] % (Auto) % Eos % (Auto) % Baso % (Auto) % Neut # (Auto) (1.8-7.7) 10^3/u L Lymph # (Auto) (0.8-4.8) 10^3/u L [place] # (Auto) (0.2-0.9) 10^3/u L Eos # (Auto) (0.0-0.8) 10^3/u L Baso # (Auto) (0.0-0.1) 10^3/u L Nucleated RBC % (a uto) % Nucleated RBCs # /100WBC Specimen Type Sample Site ABG pH (7.35-7.45) ABG pCO2 (35-45) mmHg ABG HCO3 (22-26) mmol/L ABG Base Excess (-2.0-2.0) mmol/ L Miguel Test Hematocrit (42-52) % O2 Delivery Device FiO2 % Media Liaison Officer ID Sodium (136-145) mmol/L Potassium (3.5-5.1) mmol/L Chloride (98-107) mmol/L Carbon Dioxide (22-29) mmol/L Anion Gap (5-19) BUN (8-23) mg/dL Creatinine (0.7-1.2) mg/dL GFR Calculation (90-130) mL/min Glucose (65-115) mg/dL Estimat Average Gl ucose 94 Hemoglobin A1c 4.9 (4.0-6.0) % Calculated Osmolal ity (285-295) mOsm/k g Lactate (0.5-2.2) mmol/L Calcium (8.5-10.5) mg/dL Phosphorus 8.5 H* (2.5-4.5) mg/dL Magnesium 2.6 H (1.7-2.3) mg/dL Total Bilirubin (0.15-1.2) mg/dL AST (0-40) U/L ALT (0-41) U/L Alkaline Phosphata se (40-130) IU/L Creatine Kinase (39-308) U/L Total Protein (6.6-8.7) g/dL Albumin (3.5-5.2) g/dL Globulin (1.3-4.6) g/dL Procalcitonin 14.74 H (0-0.5) ng/mL Urine Color (Yellow) Urine Appearance (CLEAR) Urine pH (5-7) Ur Specific Gravit y (1.005-1.030) Urine Protein (Negative) Urine Glucose (UA) (Normal) Urine Ketones (Negative) Urine Blood (Negative) Urine Nitrate (Negative) Urine Bilirubin (NEGATIVE) Prot Sulfosalicyli c Acd (Negative) Urine Urobilinogen (Negative) mg/dL Ur Leukocyte Karen ase (Negative) Urine RBC (0-2) /hpf Urine WBC (0-5) /hpf Ur Squamous Epith Cells (0-5) Ur Transition Epit h Cell /hpf Urine Bacteria (NONE) Other Casts /lpf Urine Mucus Urine Sperm Salicylates (3-10) mg/dL Acetaminophen (10-30) ug/mL Ethyl Alcohol (0-10) mg/dL 08/28/19 08/28/19 Range/Units 02:07 02:50 WBC (4.0-10.0) 10^3/ uL RBC (4.1-5.3) 10^6/u L Hgb (11.7-16.6) g/dL Hct (42.0-52.0) % MCV (80-94) fL MCH (28.0-34.0) pg MCHC (30.0-36.0) g/dL RDW (12.1-15.1) % Plt Count (130-400) 10^3/c mm MPV (7.4-10.4) fL Neut % (Auto) % Lymph % (Auto) % [place] % (Auto) % Eos % (Auto) % Baso % (Auto) % Neut # (Auto) (1.8-7.7) 10^3/u L Lymph # (Auto) (0.8-4.8) 10^3/u L [place] # (Auto) (0.2-0.9) 10^3/u L Eos # (Auto) (0.0-0.8) 10^3/u L Baso # (Auto) (0.0-0.1) 10^3/u L Nucleated RBC % (a uto) % Nucleated RBCs # /100WBC Specimen Type Arterial Sample Site Brachial, left ABG pH 7.51 H (7.35-7.45) ABG pCO2 24.0 L (35-45) mmHg ABG HCO3 19.3 L (22-26) mmol/L ABG Base Excess -2.2 L (-2.0-2.0) mmol/ L Miguel Test Pos Hematocrit 36.1 L (42-52) % O2 Delivery Device None FiO2 21.0 % Media Liaison Officer ID [email or web address] Sodium (136-145) mmol/L Potassium (3.5-5.1) mmol/L Chloride (98-107) mmol/L Carbon Dioxide (22-29) mmol/L Anion Gap (5-19) BUN (8-23) mg/dL Creatinine (0.7-1.2) mg/dL GFR Calculation (90-130) mL/min Glucose (65-115) mg/dL Estimat Average Gl ucose Hemoglobin A1c (4.0-6.0) % Calculated Osmolal ity (285-295) mOsm/k g Lactate (0.5-2.2) mmol/L Calcium (8.5-10.5) mg/dL Phosphorus (2.5-4.5) mg/dL Magnesium (1.7-2.3) mg/dL Total Bilirubin (0.15-1.2) mg/dL AST (0-40) U/L ALT (0-41) U/L Alkaline Phosphata se (40-130) IU/L Creatine Kinase (39-308) U/L Total Protein (6.6-8.7) g/dL Albumin (3.5-5.2) g/dL Globulin (1.3-4.6) g/dL Procalcitonin (0-0.5) ng/mL Urine Color Yellow (Yellow) Urine Appearance Clear (CLEAR) Urine pH 9 H (5-7) Ur Specific Gravit y 1.010 (1.005-1.030) Urine Protein 2+ H (Negative) Urine Glucose (UA) Norm (Normal) Urine Ketones Negative (Negative) Urine Blood Neg (Negative) Urine Nitrate Negative (Negative) Urine Bilirubin Neg (NEGATIVE) Prot Sulfosalicyli c Acd Positive (Negative) Urine Urobilinogen Norm (Negative) mg/dL Ur Leukocyte Karen ase Negative (Negative) Urine RBC Rare (0-2) /hpf Urine WBC 5-10 H (0-5) /hpf Ur Squamous Epith Cells Rare (0-5) Ur Transition Epit h Cell 0-4 /hpf Urine Bacteria Trace (NONE) Other Casts Epithelial /lpf Urine Mucus Trace Urine Sperm 1+ Salicylates (3-10) mg/dL Acetaminophen (10-30) ug/mL Ethyl Alcohol (0-10) mg/dL Discharge Plan Discharge Admit Provider: Nelson Copeland Coding Level of Care Code ED Bacon De Rinder for Chg 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
--- NOTE | 2019-08-28 02:53 | CTR_ITS ---
PROCEDURE INFORMATION: Exam: CT Chest Without Contrast Exam date and time: 08/28/2019 2:54 AM Age: 59 years old Clinical indication: Abnormal findings; Abnormal radiologic exam of lung or chest; Additional info: Fever TECHNIQUE: Imaging protocol: Computed tomography of the chest without contrast. Total DLP: 1122.86 mGy-cm Radiation optimization: All CT scans at this facility use at least one of these dose optimization techniques: automated exposure control; mA and/or kV adjustment per patient size (includes targeted exams where dose is matched to clinical indication); or iterative reconstruction. COMPARISON: CR XR chest 1V portable [id number] 08/28/2019 1:46 AM FINDINGS: Tubes, catheters and devices: The double-lumen catheter is placed via the right internal jugular vein with its tip at the level of the superior cavoatrial junction. Lungs: A calcified granuloma seen in the right lung base. There are multiple pulmonary nodularity seen bilaterally. The largest nodularity on the left is seen in the left upper lobe laterally measuring 1.7 x 2.5 cm. The largest on the right is seen in the costophrenic recess posterior medially measuring 4.6 cm AP dimension by 3.3 cm transverse dimension. These findings are worrisome for pulmonary metastatic lesions. Follow-up evaluation with PET-CT imaging is suggested. There are some strandy and hazy opacities present in the lung bases bilaterally possibly representing superimposing atelectasis versus infiltrates. Pleural space: Unremarkable. No pneumothorax. No pleural effusion. Heart: Unremarkable. No cardiomegaly. No pericardial effusion. Aorta: Calcifications are seen within the thoracic and abdominal aorta. Lymph nodes: Unremarkable. No enlarged lymph nodes. Spleen: Punctate calcifications are seen within the spleen compatible with calcified granulomas. Kidneys and ureters: There is a 2.1 cm hypoattenuation cystic mass seen on the left kidney compatible with a simple cyst. Additionally, there is a isodense 2.1 cm mass seen on the left kidney that may represent a hemorrhagic cyst. Bones/joints: Unremarkable. No acute fracture. Soft tissues: Unremarkable. CT/CT chest wo con [id number] IMPRESSION: 1. There are multiple pulmonary nodularity is present bilaterally raising some suspicion for metastatic lesions. Consider PET/CT, or tissue sampling.(Juan et al., Fleischner Society, 2017) 2. Strandy opacity seen in the lung bases bilaterally compatible with atelectasis versus infiltrates. 3. There are 2 cystic masses seen within the left kidney, the largest measuring 2.1 cm. These correspond to the sonographic findings dated 05/15/2017. No further workup needed. COMMENTS: Consistent with the [employer]'s Incidental Findings Committee white paper (J Am Valeria Radiol 2018): Any incidental cystic renal lesion classified in this report as too small to characterize or simple appearing is likely a benign cyst. No follow-up imaging is recommended for these lesions per consensus recommendations based on imaging criteria. Radiation Dose CTDIVOL = (mGy): DLP = 1122.86 (mGy-cm)
[2019-08-28 02:57] LABS: Magnesium 2.6 mg/dL (1.7-2.3)
[2019-08-28 03:01] LABS: Phosphorus 8.5 mg/dL (2.5-4.5)
[2019-08-28 03:06] LABS: Add Urine Microscopic? YES; Bilirubin Urine Neg (NEGATIVE); Blood Urine Neg (Negative); Glucose Urine UA Norm (Normal); Ketones Urine Negative (Negative); Leukocyte Esterase Urine Negative (Negative); Nitrate Urine Negative (Negative); Protein Urine 2+ (Negative); Sulfosalicylic Acid Urine Positive (Negative); Urine Appearance Clear (CLEAR); Urine Color Yellow (Yellow); Urobilinogen Urine Norm (Negative); pH Urine 9 (5-7)
[2019-08-28 03:08] LABS: Bacteria Urine TRACE; Mucus Urine TRACE; RBC Urine RARE /hpf (0-2); Squamous Epithelial Cell Urine RARE (0-5); Transitional Epi Cells Urine 0-4 /hpf
[2019-08-28 03:09] LABS: Add Urine Culture? No; Other Casts Urine EPITHELIAL /lpf; Sperm Urine 1+
[2019-08-28] MEDS: levofloxacin-dextrose 5 % 750 MG/150 ML PREMIX 100 MG IV (03:24)
--- NOTE | 2019-08-28 03:50 | XR_ITS ---
WS: [id number] FOOT LEFT TECHNIQUE: 2 views of the left foot CLINICAL INFORMATION: fever, wound COMPARISON: None. FINDINGS: Diffuse soft tissue edema. Osteopenia. Prior postoperative changes amputation at the mid tarsal joint . Preservation of the navicular. Extensive vascular calcification. Plantar calcaneal spurring. Slight irregularity involving the distal cortical surface of the navicular. This can be further evaluated w ith CT or MRI to assess for osteomyelitis. XR/XR foot LT 2V [id number] IMPRESSION: 1. Prior postoperative changes amputation at the mid tarsal joint with preserv ation of the navicular. 2. Diffuse soft tissue edema with osteopenia. 3. Mild irregularity involving the navicular. This could be further evaluated with CT or MRI to assess for osteomyelitis. Otherwise no definite evidence of o steomyelitis.
--- NOTE | 2019-08-28 05:17 | PM.HP ---
Providers/Chief Complaint Admitting Physician: Nelson Copeland MD Chief Complaint: generalized weakness History of Present Illness Joshua Baugh is a 59 year old male with a past medical history of end-stage renal disease on dialysis Wednesday, severe peripheral vascular disease, non-reconstructable left leg arterial insufficiency, 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 Koch on June 2019, uncontrolled type 2 diabetes mellitus, hypertension, anxiety, gout who presents to the emergency room on a 96-hour hold with complaints of altered mental status, fevers. During my examination patient is alert oriented x1, states that he is here because he has fevers, states that he is in [place], at [facility], cannot remember the date, cannot remove the month, did not cannot remove the year, cannot remember who is the president. Patient denies chest pain, denies shortness of breath, denies abdominal pain, denies diarrhea, denies dysuria, denies left foot pain, denies joint pains, denies neck pain, denies headaches, denies blurry vision, denies nausea, he cannot understand why he is here. I attempted to reach out to patient's and son several times, with no response. According to 96-hour hold and accounts from ER physicians, since Wednesday patient has been confined to the sofa, has had fever since Wednesday, has not been moving much, has been to having alterations of his mentation, has been weak, fatigued, poor appetite, has been urinating on the couch, has been complaining of left foot pain, there is concerns for worsening gangrene of the left foot, he has been delusional, he has been picking at his left foot, , is very agitated, complaining of pain, has not been able to get off the sofa onto his feet, hehas taken off his clothes, lying naked on the couch, incoherent at times, he will not take oral medications, and that this is completely out of character for him. Review of Systems Const: Denies: fever, chills, fatigue or malaise Eyes: Denies: change in vision or blurry vision ENMT: Denies: nasal congestion Resp: Denies: shortness of breath, productive cough, non-productive cough or wheezing GI: Denies: abdominal pain, nausea, vomiting, vomiting blood, diarrhea, constipation, blood in stool or black tarry stool : Denies: flank pain, difficulty urinating, painful urination or urinary frequency Musc: Denies: neck pain or back pain Skin/Breast: Denies: rash Neuro: Denies: headache, dizziness or vertigo Psych: Denies: anxiety or depression Endo: Denies: excessive urination or excessive thirst Medications/Allergies Allergies Allergy/AdvReac Type Severity Reaction Status Date / Time ibuprofen Allergy ALGY-Difficulty Verified 06/14/19 12:31 Breathing Additional Medication Information Additional Medication Information: Allopurinol 150 mg p.o. daily Amlodipine 5 mg p.o. twice daily Carvedilol 25 mg p.o. twice daily Clonidine 0.1 mg twice daily [place] 09/09/2024 0.5-1 tab p.o. every 4 hours Prednisone 10 mg p.o. twice daily Sevelamer 800 mg p.o. 3 times daily Trazodone 50 mg p.o. nightly PFSH Acute PFSH: Social History Smoking and tobacco status: never smoked Quit status (tobacco): has quit using tobacco Vitals/I&O/Wt Last Vital Signs Temp 98.5 F 08/28/19 01:10 Pulse 98 08/28/19 04:00 Resp 16 08/28/19 04:00 BP 105/68 08/28/19 04:00 Pulse Ox 94 08/28/19 04:00 Physical Exam Const: COMMON NORMALS: no apparent distress GENERAL APPEARANCE: cooperative and disheveled ORIENTATION/CONSCIOUSNESS: Yes awake, Yes oriented to person and Yes confused; not oriented to place and not oriented to time HENMT: COMMON NORMALS: normocephalic HEAD & SCALP: normocephalic Eye: COMMON NORMALS: PERRL and EOMs intact bilaterally GENERAL EYE: normal appearance of both eyes PUPIL: Yes PERRL DIRECT OPHTHALMOSCOPY: Yes no papilledema Neck/C-Spine: COMMON NORMALS: full ROM, no lymphadenopathy, no JVD and thyroid normal THYROID: thyroid normal Lymph: LYMPHATIC: no lymphadenopathy noted Resp: COMMON NORMALS: normal respiratory effort, no retractions, no use of accessory muscles and clear to auscultation bilaterally AUSCULTATION: clear to auscultation bilaterally Cardio: COMMON NORMALS: no JVD, regular rate, regular rhythm, S1 normal heart sound, S2 normal heart sound, no gallops, no clicks and no murmurs RATE: regular rate RHYTHM: regular rhythm HEART SOUNDS: S1 normal and S2 normal GI: COMMON NORMALS: normal to inspection, nondistended, normoactive bowel sounds, soft to palpation, non-tender and no hepatosplenomegaly PALPATION: Yes soft and Yes no hepatosplenomegaly Extremity: COMMON NORMALS: normal to inspection, full ROM and no pedal edema NARRATIVE EXTREMITY EXAM: Left lower extremity transmetatarsal amputation, area of gangrene lateral aspect of left foot, slight surrounding erythema, slight tenderness, no visible drainage, Neuro: COMMON NORMALS: oriented x3, CN's II-XII intact bilaterally, moves all extremities and no focal motor deficits Psych: COMMON NORMALS: mental status grossly normal, thought process normal and cooperative THOUGHT PROCESS: normal thought process Data : 08/28/19 01:55 08/28/19 01:55 Micro: Microbiology 08/28/19 01:55 Blood Culture - Preliminary Blood SPECIMEN COLLECTED 08/28/19 01:50 Blood Culture - Preliminary Blood SPECIMEN COLLECTED A&P Assessment and plan (1) Altered mental status: -multifactorial: bilateral pneumonia, possible/cellulitis of left TMA site -Patient is alert oriented x1, has no significant complaints -CT of the chest shows strandy opacity seen in the left lung bases bilaterally compatible with atelectasis versus infiltrate, WBC 11.5, ABG showed hyper respiration, with a pH of 7.51, PCO2 of 24, is requiring 2 L oxygen UA no significant signs of urinary tract infection- Plan: -Given fevers, altered mental status, bilateral infiltrates in lungs will obtain covid19 testing -Will admit to the ICU -obtain influenza, pro-Nam, CRP, ESR -Has been recently in the hospital, will start on broad-spectrum antibiotics vancomycin and Zosyn for healthcare associated pneumonia, sputum cultures, urine bacterial antigens, blood cultures -Broad-spectrum antibiotics for possible cellulitis of left TMA site, I have ordered a sed rate, CRP, CT of left lower extremity -Consider consulting Dr. Koch based on results Status: Acute (2) HCAP (healthcare-associated pneumonia): Status: Acute (3) Critical lower limb ischemia: -Patient had a lower extremity angiogram on May 2019 which showed: - Unsuccessful attempt to open up left posterior tibial artery. Were not able to cross the lesion despite of multiple balloon angioplasty. Medical management was advised. -Patient has [id number] arterial disease of left lower extremity -I was not able to palpate DP PT pulses, does have gangrene of lateral aspect of TMA amputation site, extremity is not cool, not clammy, no skin discoloration, no pain reported, -We will have nurses Doppler pulses -Is not on aspirin or Plavix or statin? -I will await Doppler results, hold off on heparin drip -Patient has an apparent allergy to ibuprofen, difficulty breathing, hold off on aspirin for now, other option would be Plavix but will wait on starting it if there might be the possibility of surgical intervention -Start statin for now Status: Acute (4) Hemodialysis patient: I have consulted nephrology for hemodialysis this morning Status: Acute (5) Hypertension: Status: Acute (6) Pulmonary nodules/lesions, multiple: -Chest x-ray showed bilateral pulmonary nodules concerning for metastatic disease -There are multiple pulmonary nodularity seen bilaterally. The largest nodularity on the left is seen in the left upper lobe laterally measuring 1.7 x 2.5 cm. The largest on the right is seen in the costophrenic recess posterior medially measuring 4.6 cm AP dimension by 3.3 cm transverse dimension. These findings are worrisome for pulmonary metastatic lesions. Plan: -We will order ultrasound of bilateral kidneys given history of renal cyst - Status: Acute (7) Type 2 diabetes mellitus: -Not on any medications? -We will obtain a hemoglobin A1c -Low-dose sliding scale for now Status: Acute (8) Cellulitis of left foot: -Lateral aspect, has some gangrene, findings concerning for cellulitis -Order CRP, ESR, pro-Nam -Risk factors include severe peripheral vascular disease has not amenable to revascularization, has been complaining of left lower extremity pain, picking at his left lower extremity - We will do CT of left lower extremity -Broad-spectrum antibiotics vancomycin and Zosyn as above -We will obtain cultures Status: Acute (9) S/P transmetatarsal amputation of foot: Status: Acute Attestations Medical Necessity Statement*: Patient requires hospitalization, inpatient, greater than 2 midnights, for altered mental status, healthcare associated morning, left lower extremity cellulitis, possible acute limb ischemia Coding Level of Care Code Acute Scrap Materials Buyer for g Fwd Diagnoses Altered mental status R41.82 HCAP (healthcare-associated pneumonia) J18.9 Critical lower limb ischemia I99.8 Hemodialysis patient Z99.2 Hypertension I10 Pulmonary nodules/lesions, multiple R91.8 Type 2 diabetes mellitus E11.9 Cellulitis of left foot L03.116 S/P transmetatarsal amputation of foot Z89.439
--- NOTE | 2019-08-28 05:59 | PC.NURSE ---
Dopler to left foot complete per order. weak pedal pulse present. Dorsalis pedis present.
[2019-08-28 06:20] LABS: Estmated Average Glucose 94; Hemoglobin A1C 4.9 % (4.0-6.0)
[2019-08-28 06:23] LABS: Procalcitonin 14.74 ng/mL (0-0.5)
[2019-08-28 06:47] LABS: Influenza A by IFA Negative (Negative); Influenza B by IFA Negative (Negative)
[2019-08-28 06:49] LABS: C Reactive Protein 546.8 mg/L (0.0-4.9)
--- NOTE | 2019-08-28 07:49 | PC.NURSE ---
attempted to admit pt called to see if ICU was ready to take pt was told they were not ready yet
--- NOTE | 2019-08-28 09:11 | PC.NURSE ---
received from the ER per tyler and admitted to ICU 9 in airborne/contact isolation pending covid rule/out. Pt is alert and cooperative. afebrile at this time
[2019-08-28] MEDS: losartan 50 mg Tablet 25 MG PO (10:01)
[2019-08-28] MEDS: atorvastatin 40 mg Tablet PO (10:01)
[2019-08-28] MEDS: sevelamer 800 mg Tablet PO ×2 (10:01→17:42)
[2019-08-28] MEDS: allopurinol 100 mg Tablet 150 MG PO (10:02)
[2019-08-28] MEDS: cloNIDine 0.1 mg Tablet PO ×2 (10:02→17:41)
[2019-08-28] MEDS: carvedilol 25 mg Tablet PO ×2 (10:02→17:42)
[2019-08-28] MEDS: amlodipine 5 mg Tablet PO ×2 (10:03→17:41)
[2019-08-28] MEDS: heparin 5,000 unit/mL INJ 1 mL 5000 UNIT SUBCUT ×2 (10:03→19:47)
[2019-08-28] MEDS: lactated ringers 1,000 ML 100 ML IV ×2 (10:06→19:45)
[2019-08-28 10:19] LABS: Glucose Point of Care 78 mg/dL (70-110)
[2019-08-28 10:39] LABS: Thyroid Stimulating Hormone 1.84 uIU/mL (0.27-4.20)
--- NOTE | 2019-08-28 10:57 | PM.PN ---
Subjective Subjective: Interval history: The patient seems to be confused. No acute distress. Responses are mainly adequate. Normal speech. Denies uncontrolled pain. Denies shortness of breath. Reports cough. No nausea or vomiting. No diarrhea. Medications: Reviewed: Yes Medication Review Details: Generic Name Dose Route Start Last Admin Trade Name Natalie PRN Reason Stop Dose Admin Allopurinol 150 mg 08/28/19 09:35 08/28/19 10:02 Zyloprim PO 150 mg DAILY FRANCISCO Administration Amlodipine Besylat e 5 mg 08/28/19 09:35 08/28/19 10:03 Norvasc PO 5 mg BID FRANCISCO Administration Atorvastatin Calci um 40 mg 08/28/19 09:35 08/28/19 10:01 Lipitor PO 40 mg DAILY FRANCISCO Administration Carvedilol 25 mg 08/28/19 09:35 08/28/19 10:02 Coreg PO 25 mg BID FRANCISCO Administration Clonidine HCl 0.1 mg 08/28/19 09:35 08/28/19 10:02 Catapres PO 0.1 mg BID FRANCISCO Administration Heparin Sodium (Be ef Lung) 5,000 unit 08/28/19 09:35 08/28/19 10:03 Heparin SUBCUT 5,000 unit Q12H FRANCISCO Administration Lactated Ringer's 1,000 mls @ 100 m ls/hr 08/28/19 09:35 08/28/19 10:06 Lactated Ringers IV 100 mls/hr .Q10H FRANCISCO Administration Losartan Potassium 25 mg 08/28/19 09:45 08/28/19 10:01 Cozaar PO 25 mg DAILY FRANCISCO Administration Sevelamer Carbonat e 800 mg 08/28/19 09:35 08/28/19 10:01 Renvela PO 800 mg TID FRANCISCO Administration Vitals/I&O/Wt Last Vital Signs Temp 98.5 F 08/28/19 01:10 Pulse 102 H 08/28/19 09:32 Resp 16 08/28/19 05:30 BP 121/80 08/28/19 10:02 Pulse Ox 92 08/28/19 09:32 Weight last 48 hrs Weight 86.183 kg Physical Exam Narrative: EXAM NARRATIVE: No acute distress. Confused. Disoriented. Responses are adequate. Skin is warm and dry. Dry mucous membranes Neck is supple. No JVD Lungs decreased breath sounds and bibasilar crackles. No respiratory distress at rest. Heart S1, S2, regular Abdomen soft, nontender, bowel sounds are present Extremities left distal foot amputation. The wound seems to be dry without any discharge or bleeding. There is small distal wound on the age covered with dry granulations. There is no surrounding significant edema. Redness is minimal. Area is not tender. No discharge. Data : 08/28/19 01:55 08/28/19 01:55 Micro: Microbiology 08/28/19 02:50 Bacterial Antigens - Final Urine,Clean Catch 08/28/19 01:55 Blood Culture - Preliminary Blood SPECIMEN COLLECTED 08/28/19 01:50 Blood Culture - Preliminary Blood SPECIMEN COLLECTED A&P Additional A&P Information Altered mental status. Probably acute metabolic encephalopathy. Probably multifactorial. Infection, UTI, also anemia. Severe sepsis probably secondary to pneumonia, UTI. Will wait for the blood culture results. Bacteremia is possible as well. He has a hemodialysis catheter. His food seems to be doing okay. We will ask Dr. Koch to see the patient and give recommendations regarding his left lower extremity and recent surgery. I appreciate his help. Continue vancomycin and Zosyn for now. Pharmacy is helping with dosing. Pneumonia. As above. COVID testing is being ordered. UTI. Covered with Zosyn. Wait for the culture results. Concerns of self harming behavior. The patient is on one-on-one observation. Will perform psychiatric evaluation when he is stabilized. Pulmonary nodules, concerning for metastatic disease. Will address when he is stabilized either inpatient or outpatient. End-stage renal disease, hyperkalemia, hypercalcemia, hyperphosphatemia. Nephrology is consulted. Dialysis treatments per their orders. Appreciate their help! History of severe peripheral arterial disease. On statin now. We will start him on Plavix. Might need additional testing in outpatient settings after stabilization of his current acute problems. DVT prophylaxis. On heparin. Hypertension. Currently well controlled. Continue current management. Diabetes. Continue insulin sliding scale for now. Full code according to admission orders. Attestations Medical Necessity Statement*: Plan of care requires continued hospitalization for now. Coding Level of Care Code Acute Stationary Engineer Refrigeration for Rafael Chambers
--- NOTE | 2019-08-28 11:12 | PM.CONSULT ---
Providers/Reason For Consult Consulting Physican/Specialty*: Dr. Koch, cardiothoracic surgery Reason for Consult*: Assessment of left foot transmetatarsal amputation Requesting Physcian: Dr. Rodriguez Attending Physician: Armin Rodriguez History of Present Illness History of Present Illness Joshua Baugh is a 59 year old male whom I have been following in wound care services for peripheral vascular disease and gangrenous infection of the left forefoot. He is status post left transmetatarsal amputation back in June. He had a clear area of skin temperature demarcation in the mid forefoot and soila dry gangrenous changes to his distal left foot. He has been followed in wound care since prior to his amputation. He had some breakdown both laterally and much less so medially along the incision line which is been treated with Betadine. He has a biphasic Doppler signal in the foot at the level of the amputation line. His past history is complicated by severe peripheral vascular disease, diabetes mellitus, end-stage renal disease on hemodialysis Wednesday and Wednesday through a right chest wall tunneled dual-lumen dialysis catheter. He was admitted the early hours of this morning with apparent altered mental status changes, being oriented only to person. He has been placed on a 96-hour hold per the request of the family in order that he would be evaluated in the hospital, which he initially refused. The family reported fever, though we have no firm documentation. Concerns of sepsis been raised and I was asked to assess the right foot amputation. He remains afebrile. Vital signs are stable. Pulse oximeter on room air is 94%. White blood cell count upon admission was 11.5. He gives subjective history of fever though we have no firm documentation. CT scan of the chest reveals some opacities in the left lung bases consistent with atelectasis versus infiltrate. He described gangrenous changes of the lateral aspect of the amputation site is actually an eschar where there was superficial dehiscence. Skin is otherwise viable, without cellulitis, drainage, or malodor. I do not feel the foot is the source for any concerning infection. He has been started on vancomycin and Zosyn for his pulmonary infiltrates. Review of Systems Const: Reports: fever (By family history report, no the patient denies) Card: Denies: chest pain or palpitations Resp: Denies: shortness of breath, productive cough or coughing up blood Psych: Denies: anxiety or depression Meds/Allergies Home Medications and Allergies Home Medications Medication Instructions Recorded Confirmed Type carvedilol 25 mg PO BID 05/12/19 08/17/19 History clonidine HCl 0.1 mg PO BID 05/12/19 08/17/19 History hydrocodone-acetaminophen 0.5 - 1 tab PO Q4H PRN 05/12/19 08/17/19 History prednisone 10 mg PO BID 05/12/19 08/17/19 History sevelamer carbonate [Renvela] 800 mg PO TID 05/12/19 08/17/19 History allopurinol 100 mg tablet 150 mg PO DAILY tab 08/17/19 08/17/19 History amlodipine 2.5 mg tablet 5 mg PO BID tab 08/17/19 08/17/19 History trazodone 50 mg tablet 50 mg PO .HS tab 08/17/19 08/17/19 History losartan 25 mg tablet 25 mg PO DAILY 90 Days #90 tab 08/18/19 08/18/19 Rx Allergies Allergy/AdvReac Type Severity Reaction Status Date / Time ibuprofen Allergy ALGY-Difficulty Verified 06/14/19 12:31 Breathing Current Medications Current Medications Generic Name Dose Route Start Last Admin Trade Name Freq PRN Reason Stop Dose Admin Allopurinol 150 mg 08/28/19 09:35 08/28/19 10:02 Zyloprim PO 150 mg DAILY FRANCISCO Administration Amlodipine Besylate 5 mg 08/28/19 09:35 08/28/19 10:03 Norvasc PO 5 mg BID FRANCISCO Administration Atorvastatin Calcium 40 mg 08/28/19 09:35 08/28/19 10:01 Lipitor PO 40 mg DAILY FRANCISCO Administration Carvedilol 25 mg 08/28/19 09:35 08/28/19 10:02 Coreg PO 25 mg BID FRANCISCO Administration Clonidine HCl 0.1 mg 08/28/19 09:35 08/28/19 10:02 Catapres PO 0.1 mg BID FRANCISCO Administration Heparin Sodium (Beef Lung) 5,000 unit 08/28/19 09:35 08/28/19 10:03 Heparin SUBCUT 5,000 unit Q12H FRANCISCO Administration Lactated Ringer's 1,000 mls @ 100 mls/hr 08/28/19 09:35 08/28/19 10:06 Lactated Ringers IV 100 mls/hr .Q10H FRANCISCO Administration Losartan Potassium 25 mg 08/28/19 09:45 08/28/19 10:01 Cozaar PO 25 mg DAILY FRANCISCO Administration Sevelamer Carbonate 800 mg 08/28/19 09:35 08/28/19 10:01 Renvela PO 800 mg TID FRANCISCO Administration PFSH Acute PFSH: Medical History Arthritis Chronic kidney disease (CKD) Critical lower limb ischemia Diabetes Uncontrolled Hemodialysis patient Hemodialysis 3 days a week Hypertension Non-healing ulcer Left Toe Peripheral vascular disease Surgical History History of colostomy History of partial colectomy History of prostate surgery Status post transmetatarsal amputation of left foot Severe, non-reconstructable peripheral vascular disease with gangrenous changes left forefoot Family History Sister Cancer Social History Smoking and tobacco status: never smoked Quit status (tobacco): has quit using tobacco Vitals/I&O/Wt Last Vital Signs Temp 98.5 F 08/28/19 01:10 Pulse 102 H 08/28/19 09:32 Resp 16 08/28/19 05:30 BP 121/80 08/28/19 10:02 Pulse Ox 92 08/28/19 09:32 Weight last 48 hrs Weight 190 lb Physical Exam Const: GENERAL APPEARANCE: lethargic ORIENTATION/CONSCIOUSNESS: Yes oriented to person and Yes lethargic Chest: COMMONS NORMALS: inspection of chest normal OTHER: Right chest wall tunneled dialysis catheter site appears to be clean. Resp: COMMON NORMALS: normal respiratory effort, no retractions, no use of accessory muscles and clear to auscultation bilaterally AUSCULTATION: clear to auscultation bilaterally Cardio: COMMON NORMALS: regular rhythm, S1 normal heart sound, S2 normal heart sound and no rub RHYTHM: regular rhythm HEART SOUNDS: S1 normal and S2 normal GI: COMMON NORMALS: normal to inspection, nondistended, normoactive bowel sounds, soft to palpation and non-tender PALPATION: Yes soft Neuro: COMMON NORMALS: moves all extremities and no focal motor deficits SENSORIUM/ORIENTATION: Yes oriented to person, Yes lethargic, Yes somnolent and Yes fluctuating sensorium Psych: COMMON NORMALS: cooperative and speech normal SPEECH: Yes normal speech MOOD & AFFECT: Yes flat affect Data Micro: Micro: Microbiology 08/28/19 02:50 Bacterial Antigens - Final Urine,Clean Catch 08/28/19 01:55 Blood Culture - Pr eliminary Blood SPECIMEN [facility] 08/28/19 01:50 Blood Culture - Pr eliminary Blood SPECIMEN [facility] A&P Assessment and plan (1) Cellulitis of left foot: 59-year-old diabetic gentleman with end-stage renal disease on hemodialysis status post left transmetatarsal amputation back in June. He did have some dehiscence laterally and much less so medially to the skin and has small eschar medially and a bit larger one laterally. I do not think this is gangrenous. I do not think he has an active ongoing infection of the foot. I have given recommendations to the nursing service as to how to care for this incision line which would be with Betadine. At some point we will need to take off the lateral eschar but as of right now, as it remains firmly adhered with no evidence for suppuratiion, I believe we can wait on this and this can probably be handled through our wound care services. Status: Acute (2) Pulmonary nodules/lesions, multiple: Pulmonary nodules noted of the CT scan which I personally reviewed, are concerning. There clearly more numerous and impressive on the left upper lobe than elsewhere. As to whether these represent a metastatic process or perhaps disseminated infection is unclear. Given his current afebrile state and normal white count, metastatic disease must be concerning. I would recommend an echocardiogram, transthoracic, to rule out potential cardiac source for embolic disease to the lungs, otherwise once he has recovered from this acute hospitalization, we will need to consider most probably a PET scan as an outpatient. Status: Acute Consult Attestations Medical Necessity Statement: Altered mental status change in multiple pulmonary nodules Time Spent in Patient Care: Greater than 35 minutes Coding Level of Care Code Acute Log Haul Operator for [facility] Fwd Exam Detailed Diagnoses Cellulitis of left foot L03.116 Pulmonary nodules/lesions, multiple R91.8
[2019-08-28 11:34] LABS: Erythrocyte Sedimentation Rate 105 mm/hr (0-10)
--- NOTE | 2019-08-28 11:44 | PM.PN ---
Subjective Subjective: Interval history: On closed questioning he answers with lucidity. No acute distress. Normal speech. Denies uncontrolled pain. Denies shortness of breath. Reports cough. No nausea or vomiting. No diarrhea. Being ruled out for COVID. No other fevers or chills since admission. Last dialyzed on Wednesday. CVC has apparently been working ok. No edema and no other volume assoc Sx. Medications: Reviewed: Yes Medication Review Details: Generic Name Dose Route Start Last Admin Trade Name Natalie PRN Reason Stop Dose Admin Allopurinol 150 mg 08/28/19 09:35 08/28/19 10:02 Zyloprim PO 150 mg DAILY FRANCISCO Administration Amlodipine Besylat e 5 mg 08/28/19 09:35 08/28/19 10:03 Norvasc PO 5 mg BID FRANCISCO Administration Atorvastatin Calci um 40 mg 08/28/19 09:35 08/28/19 10:01 Lipitor PO 40 mg DAILY FRANCISCO Administration Carvedilol 25 mg 08/28/19 09:35 08/28/19 10:02 Coreg PO 25 mg BID FRANCISCO Administration Clonidine HCl 0.1 mg 08/28/19 09:35 08/28/19 10:02 Catapres PO 0.1 mg BID FRANCISCO Administration Heparin Sodium (Be ef Lung) 5,000 unit 08/28/19 09:35 08/28/19 10:03 Heparin SUBCUT 5,000 unit Q12H FRANCISCO Administration Lactated Ringer's 1,000 mls @ 100 m ls/hr 08/28/19 09:35 08/28/19 10:06 Lactated Ringers IV 100 mls/hr .Q10H FRANCISCO Administration Losartan Potassium 25 mg 08/28/19 09:45 08/28/19 10:01 Cozaar PO 25 mg DAILY FRANCISCO Administration Sevelamer Carbonat e 800 mg 08/28/19 09:35 08/28/19 10:01 Renvela PO 800 mg TID FRANCISCO Administration Vitals/I&O/Wt Last Vital Signs Temp 98.5 F 08/28/19 01:10 Pulse 102 H 08/28/19 09:32 Resp 16 08/28/19 05:30 BP 121/80 08/28/19 10:02 Pulse Ox 92 08/28/19 09:32 Weight last 48 hrs Weight 86.183 kg Physical Exam Narrative: EXAM NARRATIVE: No acute distress. Confused. Disoriented. Responses are adequate. Skin is warm and dry. Dry mucous membranes Neck is supple. No JVD Lungs decreased breath sounds and bibasilar crackles. No respiratory distress at rest. Heart S1, S2, regular Abdomen soft, nontender, bowel sounds are present Extremities left distal foot amputation. The wound seems to be dry without any discharge or bleeding. There is small distal wound on the age covered with dry granulations. There is no surrounding significant edema. Redness is minimal. Area is not tender. No discharge. Const: COMMON NORMALS: no apparent distress and oriented x3 GENERAL APPEARANCE: cooperative, disheveled, lethargic and ill appearing ORIENTATION/CONSCIOUSNESS: Yes awake, Yes oriented to person, Yes confused and Yes lethargic; not oriented to place and not oriented to time HENMT: COMMON NORMALS: normocephalic and external ears normal HEAD & SCALP: normocephalic FACE & SINUS: normal facial exam EXTERNAL EAR: Yes external ears normal TEETH & GINGIVA: no abnormal tooth and associated gingiva Eye: COMMON NORMALS: PERRL, EOMs intact bilaterally, conjunctivae normal and no papilledema GENERAL EYE: normal appearance of both eyes EYELID: eyelids normal CONJUNCTIVA: Yes conjunctivae normal PUPIL: Yes PERRL DIRECT OPHTHALMOSCOPY: Yes no papilledema Neck/C-Spine: COMMON NORMALS: full ROM, no lymphadenopathy, no JVD and thyroid normal GENERAL: No tracheal deviation THYROID: thyroid normal Lymph: LYMPHATIC: no lymphadenopathy noted Chest: COMMONS NORMALS: inspection of chest normal CHEST: No tenderness OTHER: Right chest wall tunneled dialysis catheter site appears to be clean. Resp: COMMON NORMALS: normal respiratory effort, no retractions, no use of accessory muscles and clear to auscultation bilaterally EFFORT & INSPECTION: No tachypneic, No respiratory distress, No retractions, No uses accessory muscles and No tracheal deviation AUSCULTATION: clear to auscultation bilaterally, no rhonchi, no wheezes and lung sounds not diminished Cardio: COMMON NORMALS: no JVD, regular rate, regular rhythm, S1 normal heart sound, S2 normal heart sound, no gallops, no clicks, no murmurs and no rub RATE: regular rate RHYTHM: regular rhythm HEART SOUNDS: S1 normal, S2 normal and no murmurs PERIPHERAL PULSES: radial pulses present GI: COMMON NORMALS: normal to inspection, nondistended, normoactive bowel sounds, soft to palpation, non-tender and no hepatosplenomegaly INSPECTION: No abdominal distension AUSCULTATION: No hypoactive bowel sounds PALPATION: Yes soft, No guarding, No rigid and Yes no hepatosplenomegaly PERCUSSION: no dullness to percussion and no tympanic to percussion Extremity: COMMON NORMALS: normal to inspection, full ROM and no pedal edema NARRATIVE EXTREMITY EXAM: Left lower extremity transmetatarsal amputation, area of gangrene lateral aspect of left foot, slight surrounding erythema, slight tenderness, no visible drainage, LEFT LOWER EXTREMITY: Yes foot & digits (First 3 toes appear black, eschar present. Mildly reddened. Cool. Small areas of desquamation present.) Neuro: COMMON NORMALS: oriented x3, CN's II-XII intact bilaterally, moves all extremities and no focal motor deficits SENSORIUM/ORIENTATION: Yes oriented to person, No oriented to place, No oriented to time, Yes lethargic, Yes somnolent and Yes fluctuating sensorium Psych: COMMON NORMALS: mental status grossly normal, thought process normal, cooperative and speech normal ATTITUDE: Yes agitated ACTIVITY/MOTOR BEHAVIOR: Yes fidgeting SPEECH: Yes normal speech MOOD & AFFECT: Yes flat affect THOUGHT PROCESS: normal thought process and circumstantial THOUGHT CONTENT: Yes delusion(s) INSIGHT: limited Skin: COMMON NORMALS: no rashes or lesions noted GENERAL SKIN EXAM: no rashes or lesions noted Data : 08/28/19 01:55 08/28/19 01:55 Micro: Microbiology 08/28/19 02:50 Bacterial Antigens - Final Urine,Clean Catch 08/28/19 01:55 Blood Culture - Preliminary Blood SPECIMEN COLLECTED 08/28/19 01:50 Blood Culture - Preliminary Blood SPECIMEN COLLECTED A&P Additional A&P Information 1. ESRD - for dialysis today 2K, UF 2-3L - am labs - dose meds for eGFR < 15 on dialysis 2. HyperK will come down with dialysis 3. 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 Hyperphos; cont outpatient meds; will encourage diet and binder compliance 5. AMS - likely metabolic encephalopathy - being evaluated for sepsis inc COVID rule out - empirical coverage with Vanco and Zosyn - uremia may be a factor ; this should show improvement after dialysis - interview and exam performed with aid of the bedside RN using the telemed media - thanks Attestations Medical Necessity Statement*: eval for ESRD Coding Level of Care Code Acute Stitcher Standard Machine for Rafael Chambers
[2019-08-28] MEDS: piperacillin-tazobactam 3.375 GM in sodium chloride 0.9% (plus) 50 ML IV (12:18)
--- NOTE | 2019-08-28 17:00 | PC.NURSE ---
Dialysis complete and pt now running 101.1 ax temp. Distressed and unable to reason, C/o need to void but unable to follow directions to void in urinal even sitting on edge of bed. Assisted to BSC with max assist of this nurse several times before pt finally able to void 150 ml clear yellow urine. Pt angry, upset and questioning my intelligence that i will not allow him to ambulate to BRP when he agrees that he is not even able to stand up without my max support. States walking and standing are two totally different things.
[2019-08-28] MEDS: heparin, porcine 1,000 unit/mL INJ 10 mL HE (17:16)
[2019-08-28] MEDS: HYDROcodone-acetaminophen 5-325 mg Tablet PO (17:41)
[2019-08-28] MEDS: vancomycin 1,000 MG in sodium chloride 0.9% 250 ML 250 MG IV (17:52)
[2019-08-28 18:42] LABS: Glucose Point of Care 93 mg/dL (70-110)
[2019-08-28] MEDS: LORazepam 2 mg/mL INJ 1 mL 1 MG IVP (19:46)
[2019-08-28] MEDS: trazodone 50 mg Tablet PO (19:46)
--- NOTE | 2019-08-28 19:56 | NUR.SHIFT ---
In bed attempting to get out of bed and states I don't need to be hear, I am going to leave . Becomes very upset and begins yelling when explained to patient that he is in ICU and is sick and can not leave. Ativan 1mg given as ordered, other PM meds given as cluster care to decrease exposure related to covid rule out precautions.
[2019-08-28 21:33] LABS: Glucose Point of Care 91 mg/dL (70-110)
[2019-08-29] VITALS (16 sets, daily range): BP systolic 89–160; BP diastolic 54–88; PULSE 83–100; RESP 14–24; TEMP 36.9–37.3; O2SAT 90–99
[2019-08-29] MEDS: piperacillin-tazobactam 3.375 GM in sodium chloride 0.9% (plus) 50 ML IV ×2 (01:54→12:45)
[2019-08-29 05:13] LABS: Basophils % 0.3 %; Eosinophils # 0.2 10^3/uL (0.0-0.8); Eosinophils % 2.1 %; Hematocrit 35.2 % (42.0-52.0); Hemoglobin 10.9 g/dL (11.7-16.6); Lymphocytes # 0.9 10^3/uL (0.8-4.8); Lymphocytes % 13.1 %; Mean Corpuscular Hemoglobin 32.9 pg (28.0-34.0); Mean Corpuscular Volume 106.3 fL (80-94); Mean Platelet Volume 10.8 fL (7.4-10.4); Monocytes # 0.6 10^3/uL (0.2-0.9); Monocytes % 8.5 %; Neutrophils # 5.3 10^3/uL (1.8-7.7); Neutrophils % 75.1 %; Nucleated Red Blood Cells % 0 %; Platelet Count 132 10^3/cmm (130-400); Red Blood Count 3.31 10^6/uL (4.1-5.3); Red Cell Distribution Width 15.8 % (12.1-15.1)
--- NOTE | 2019-08-29 07:00 | US_ITS ---
WS: [id number] ULTRASOUND RENAL TECHNIQUE: Ultrasound examination of both kidneys. CLINICAL INFORMATION: renal cyst, has possible metastatic lesion in lung, r/o canc COMPARISON: None. FINDINGS: Bilateral renal cysts. Largest renal cyst left kidney measures 1.9 x 2.2 x 1.6 cm RIGHT: Right kidney atrophy Echogenicity: Normal. Cortical thickness: 0.6 cm Hydronephrosis: None. Perinephric fluid: None. Right kidney measures: 8.1 cm x 2.6 cm x 3.3 cm. LEFT: Left kidney atrophy Echogenicity: Normal. Cortical thickness: 0.9 cm Hydronephrosis: None. Perinephric fluid: None. Left kidney measures: 7.3 cm x 3.6 cm x 4.6 cm. Normal visualized aorta. Normal bladder. US/US renal BI* [id number] IMPRESSION: 1. No hydronephrosis. Bilateral renal cortical atrophy. 2. Bilateral renal cysts. 3. No solid appearing lesions.
--- NOTE | 2019-08-29 07:00 | USCV_ITS ---
Joshua Baugh Age: 59 Gender: M : 1960 Exam Date: 08/29/2019 15:19 Ordering Phys: Braeden Koch MD (Andy) ([email or web address]) Technologist: Francisca Robledo Exam Location: [facility] [place] Indication: MULTIPLE PULMOARY NODULES BP: / HR: 88 Rhythm: Sinus Technical Quality: TDS MEASUREMENTS (Male / Female) Normal Values 2D ECHO LV Diastolic Diameter PLAX 4.5 cm 4.2 - 5.9 / 3.9 - 5.3 cm LV Systolic Diameter PLAX 3.3 cm IVS Diastolic Thickness 0.8 cm 0.6 - 1.0 / 0.6 - 0.9 cm IVS Systolic Thickness 2.0 cm LVPW Diastolic Thickness 1.2 cm 0.6 - 1.0 / 0.6 - 0.9 cm LVPW Systolic Thickness 1.7 cm LVOT Diameter 2.0 cm LV Ejection Fraction 2D Teich 52.1 % LA Diameter 3.9 cm LA Width 4.0 cm LA Height 4.2 cm RA Width 3.2 cm RA Height 4.6 cm Aorta at Sinotubular Diameter 3.4 cm M-MODE LV Diastolic Diameter MM 6.0 cm 4.2 - 5.9 / 3.9 - 5.3 cm LV Systolic Diameter MM 3.7 cm LV Ejection Fraction MM Teich 67.5 % IVS Diastolic Thickness MM 1.0 cm 0.6 - 1.0 / 0.6 - 0.9 cm IVS Systolic Thickness MM 1.8 cm LVPW Diastolic Thickness MM 1.3 cm 0.6 - 1.0 / 0.6 - 0.9 cm LVPW Systolic Thickness MM 1.9 cm RV Diastolic Diameter MM 1.0 cm Aortic Annulus Diameter 3.6 cm LA Ao Ratio MM 1.1 MV E Point Septal Separation 0.6 cm DOPPLER AV Peak Velocity 171.0 cm/s LVOT Peak Velocity 113.0 cm/s AV Area Cont Eq vti 1.9 cm squared AV Area Cont Eq pk 2.1 cm squared MV Area PHT 5.8 cm squared Mitral E to A Ratio 0.8 MV E' Velocity 12.0 cm/s Mitral E to MV E' Ratio 7.5 Mitral E to LV E' Lateral Ratio 6.6 Mitral E to LV E' Septal Ratio 8.7 TR Peak Velocity 173.9 cm/s TR Peak Gradient 12.1 mmHg TR Mean Velocity 133.1 cm/s TR Mean Gradient 7.4 mmHg TR Velocity Time Integral 38.8 cm TV Peak E Velocity 74.0 cm/s Right Atrial Pressure 3.0 mmHg Pulmonary Artery Systolic Pressu 15.1 mmHg PV Peak Velocity 73.0 cm/s RV Acceleration Time 0.1 s RV Ejection Time 0.4 s RV AcT/ET 0.4 FINDINGS Left Ventricle Difficult study. Patient less than cooperative with exam. Left ventricular size and function probably normal. Ejection fraction within normal range. Grade 1 diastolic dysfunction. Right Ventricle Normal right ventricular size and systolic function. Normal right ventricular systolic pressure. Right Atrium Mildly increased right atrial size. Left Atrium Mildly increased left atrial size. Mitral Valve Structurally normal mitral valve. No mitral valve regurgitation. Aortic Valve Structurally normal aortic valve without significant sclerosis or stenosis. There is no aortic regurgitation. Tricuspid Valve Structurally normal tricuspid valve. Trace tricuspid valve regurgitation. Pulmonic Valve Pulmonic valve not well visualized. Pericardium Normal pericardium without effusion. Aorta Normal ascending aorta dimension. CONCLUSIONS Difficult study. Patient less than cooperative with exam. Left ventricular size and function probably normal. Ejection fraction within normal range. Grade 1 diastolic dysfunction. Mildly increased right atrial size. Mildly increased left atrial size. Technically limited study. There are no prior echocardiogram studies to compare. Dr. Alberto Lr MD (Electronically Signed) Final Date: 30 August 2019 08:15 S
[2019-08-29 07:31] LABS: Glucose Point of Care 74 mg/dL (70-110)
--- NOTE | 2019-08-29 08:00 | CT_ITS ---
WS: [id number] NONCONTRAST CT LEFT FOOT WITH CORONAL AND SAGITTAL REFORMATTED IMAGES. TECHNIQUE: Noncontrast CT left foot with coronal and sagittal reformatted images. CLINICAL INFORMATION: left foot gangrene, ams, fever, r/o osteo COMPARISON: None. DLP: [id number] scans at [facility] use at least one of these dose optimization techniques: automat ed exposure control; mA and/or kV adjustment per patient size (includes targeted exams where dose is matched to clinical indication); or iterative reconstruction. FINDINGS: Prior postoperative changes amputation of the mid tarsal joint with preservation of the navicular. Di ffuse soft tissue edema with osteopenia. Extensive vascular calcification. Plantar calcaneal spurring . Erosive and destructive changes involving the residual tarsal bones. Erosive changes involving the cu neiforms and distal navicular articulation with associated soft tissue edema suspicious for osteomyel itis. Talar dome and calcaneus appear normal. Cuboid appears normal. Normal ankle mortise. CT/CT foot LT wo con* [id number] IMPRESSION: 1. Destructive erosive changes involving the residual cuneiforms and cortical surface of the distal navicular suspicious for osteomyelitis.. 2. Talar dome and calcaneus appear normal. Cuboid appears normal. 3. Prior postoperative changes amputation of the mid tarsal joint. 4. No evidence of drainable abscess or fluid collection.
[2019-08-29 08:18] LABS: Coronavirus Lab Test PTC NOT DETECTED
[2019-08-29] MEDS: allopurinol 100 mg Tablet 150 MG PO (08:39)
[2019-08-29] MEDS: atorvastatin 40 mg Tablet PO (08:40)
[2019-08-29] MEDS: sevelamer 800 mg Tablet PO ×3 (08:40→18:33)
[2019-08-29] MEDS: cloNIDine 0.1 mg Tablet PO ×2 (08:40→18:33)
[2019-08-29] MEDS: clopidogrel 75 mg Tablet PO (08:40)
[2019-08-29] MEDS: amlodipine 5 mg Tablet PO ×2 (08:40→18:33)
[2019-08-29] MEDS: losartan 50 mg Tablet 25 MG PO (08:40)
[2019-08-29] MEDS: acetaminophen 325 mg Tablet 650 MG PO (08:40)
[2019-08-29] MEDS: carvedilol 25 mg Tablet PO ×2 (08:41→18:33)
[2019-08-29 08:49] LABS: Alanine Aminotransferase 16 U/L (0-41); Albumin Level 2.8 g/dL (3.5-5.2); Alkaline Phosphatase 76 IU/L (40-130); Anion Gap 21.5 (5-19); Aspartate Amino Transferase 21 U/L (0-40); Blood Urea Nitrogen 42 mg/dL (8-23); Calcium 10.3 mg/dL (8.5-10.5); Carbon Dioxide 25 mmol/L (22-29); Chloride 95 mmol/L (98-107); Globulin 3.4 g/dL (1.3-4.6); Glomerular Filtration Rate 5.1 mL/min (90-130); Glucose 80 mg/dL (65-115); Magnesium 2.1 mg/dL (1.7-2.3); Osmolality Calculated 279 mOsm/kg (285-295); Phosphorus 7.4 mg/dL (2.5-4.5); Potassium 5.5 mmol/L (3.5-5.1); Sodium 136 mmol/L (136-145); Total Bilirubin 0.3 mg/dL (0.15-1.2); Total Protein 6.2 g/dL (6.6-8.7)
--- NOTE | 2019-08-29 12:29 | P.PN_ITS ---
Subjective Subjective: Interval history: The patient is doing better today. No fever. Denies any uncontrolled pain. No chest pain, shortness of breath, cough, palpitations. No nausea or vomiting. No diarrhea. Underwent dialysis yesterday. The next treatment is tomorrow. Medications: Reviewed: Yes Medication Review Details: Generic Name Dose Route Start Last Admin Trade Name Freq PRN Reason Stop Dose Admin Acetaminophen 650 mg 08/29/19 07:42 08/29/19 08:40 Tylenol PO 650 mg Q6H PRN Administration Mild Pain or feve r Hydrocodone Bitart /Acetaminophen 0.5 - 1 tab 08/28/19 09:35 08/28/19 17:41 [place] 5-325 Mg PO 1 tab Q4H PRN Administration Pain Allopurinol 150 mg 08/28/19 09:35 08/29/19 08:39 Zyloprim PO 150 mg DAILY FRANCISCO Administration Amlodipine Besylat e 5 mg 08/28/19 09:35 08/29/19 08:40 Norvasc PO 5 mg BID FRANCISCO Administration Atorvastatin Calci um 40 mg 08/28/19 09:35 08/29/19 08:40 Lipitor PO 40 mg DAILY FRANCISCO Administration Carvedilol 25 mg 08/28/19 09:35 08/29/19 08:41 Coreg PO 25 mg BID FRANCISCO Administration Clonidine HCl 0.1 mg 08/28/19 09:35 08/29/19 08:40 Catapres PO 0.1 mg BID FRANCISCO Administration Clopidogrel Bisulf ate 75 mg 08/29/19 09:00 08/29/19 08:40 Plavix PO 75 mg DAILY FRANCISCO Administration Piperacillin Sod/T azobactam 50 mls @ 12.5 mls /hr 08/29/19 00:15 08/29/19 06:00 Sod 3.375 gm/ So dium Chloride IV Infused Q12H FRANCISCO Infusion Protocol As Directed Sevelamer Carbonat e 800 mg 08/28/19 18:00 08/29/19 08:40 Renvela PO 800 mg TIDWM FRANCISCO Administration Trazodone HCl 50 mg 08/28/19 21:00 08/28/19 19:46 Desyrel PO 50 mg BEDTIME FRANCISCO Administration Vitals/I&O/Wt Last Vital Signs Temp 98.5 F 08/29/19 00:00 Pulse 84 08/29/19 10:00 Resp 19 H 08/29/19 10:00 BP 89/54 08/29/19 10:00 Pulse Ox 95 08/29/19 10:00 08/28/19 08/29/19 08/29/19 22:59 06:59 14:59 Intake Total 1565 / 1565 50 / 1615 1500 / 1500 Output Total 150 / 150 30 / 180 Balance 1415 / 1415 20 / 1435 1500 / 1500 Weight last 48 hrs Weight 86.183 kg Physical Exam Narrative: EXAM NARRATIVE: No acute distress. Confusion and disorientation have resolved. Normal speech. Responses are adequate. Skin is warm and dry. Moist mucous membranes Neck is supple. No JVD Lungs decreased breath sounds and bibasilar crackles. No respiratory distress at rest. Heart S1, S2, regular Abdomen soft, nontender, bowel sounds are present Extremities left distal foot amputation. The larger wound is covered with dressing which is dry and clean. The smaller wound without evidence of discharge or bleeding. No significant surrounding hyperemia. Data : 08/29/19 04:58 08/29/19 08:10 Micro: Microbiology 08/28/19 12:24 Gram Stain - Final Toe - Left Big Wound Culture - Preliminary 08/28/19 01:50 Blood Culture - Preliminary Blood NEGATIVE TO DATE 08/28/19 01:55 Blood Culture - Preliminary Blood NEGATIVE TO DATE 08/28/19 13:16 Blood Culture - Preliminary Blood SPECIMEN COLLECTED 08/28/19 13:24 Blood Culture - Preliminary Blood SPECIMEN COLLECTED 08/28/19 10:03 MRSA Culture - Final Nose 08/28/19 02:50 Bacterial Antigens - Final Urine,Clean Catch A&P Additional A&P Information Acute metabolic encephalopathy probably secondary to infection and uremia. Resolved. Severe sepsis probably secondary to pneumonia, UTI, or catheter related bacteremia. Blood cultures are pending. The foot looks okay. Evaluated by Dr. Koch. No additional procedures or testing is recommended at this junction. I appreciate his help. Continue vancomycin and Zosyn for now. Pharmacy is helping with dosing. Pneumonia. As above. COVID testing came back negative. UTI. Covered with Zosyn. Wait for the culture results. Concerns of self harming behavior. The patient is on one-on-one observation. Will request psychiatric evaluation today. Pulmonary nodules, concerning for metastatic disease. Will address when he is stabilized either inpatient or outpatient. End-stage renal disease, hyperkalemia, hypercalcemia, hyperphosphatemia. Appreciate Dr. Storey's help! Underwent dialysis yesterday. Will have another one tomorrow. History of severe peripheral arterial disease. On statin and Plavix. Might need additional testing in outpatient settings after stabilization of his current acute problems. DVT prophylaxis. On heparin. Hypertension. Currently well controlled. Continue current management. The plan of care was discussed with the patient. He verbalized understanding and agreement. Attestations Medical Necessity Statement*: The plan of care requires further inpatient hospitalization. Coding Level of Care Code Acute Nutritional Health Coach for Rafael Chambers
[2019-08-29] MEDS: heparin 5,000 unit/mL INJ 1 mL 5000 UNIT SUBCUT ×2 (12:45→20:25)
--- NOTE | 2019-08-29 15:11 | P.PN_ITS ---
Subjective Subjective: Interval history: No new issues today; more lucid, comfortable, keen to go home. Dialysis yesterday and planned for tomorrow. Medications: Reviewed: Yes Medication Review Details: Generic Name Dose Route Start Last Admin Trade Name Freq PRN Reason Stop Dose Admin Acetaminophen 650 mg 08/29/19 07:42 08/29/19 08:40 Tylenol PO 650 mg Q6H PRN Administration Mild Pain or feve r Hydrocodone Bitart /Acetaminophen 0.5 - 1 tab 08/28/19 09:35 08/28/19 17:41 [place] 5-325 Mg PO 1 tab Q4H PRN Administration Pain Allopurinol 150 mg 08/28/19 09:35 08/29/19 08:39 Zyloprim PO 150 mg DAILY FRANCISCO Administration Amlodipine Besylat e 5 mg 08/28/19 09:35 08/29/19 08:40 Norvasc PO 5 mg BID FR[place] Administration Atorvastatin Calci um 40 mg 08/28/19 09:35 08/29/19 08:40 Lipitor PO 40 mg DAILY FRANCISCO Administration Carvedilol 25 mg 08/28/19 09:35 08/29/19 08:41 Coreg PO 25 mg BID FRANCISCO Administration Clonidine HCl 0.1 mg 08/28/19 09:35 08/29/19 08:40 Catapres PO 0.1 mg BID FR[place]IS[place] Administration Clopidogrel Bisulf ate 75 mg 08/29/19 09:00 08/29/19 08:40 Plavix PO 75 mg DAILY FRANCISCO Administration Piperacillin Sod/T azobactam 50 mls @ 12.5 mls /hr 08/29/19 00:15 08/29/19 06:00 Sod 3.375 gm/ So dium Chloride IV Infused Q12H FR[facility]ISCO Infusion Protocol As Directed Sevelamer Carbonat e 800 mg 08/28/19 18:00 08/29/19 08:40 Renvela PO 800 mg TIDWM FR[place]CO Administration Trazodone HCl 50 mg 08/28/19 21:00 08/28/19 19:46 Desyrel PO 50 mg BEDTIME FRANCISCO Administration Vitals/I&O/Wt Last Vital Signs Temp 99.1 F 08/29/19 12:00 Pulse 85 08/29/19 12:00 Resp 23 H 08/29/19 12:00 BP 95/58 08/29/19 12:00 Pulse Ox 92 08/29/19 12:00 08/29/19 08/29/19 08/29/19 06:59 14:59 22:59 Intake Total 50 / 1615 1500 / 1500 Output Total 30 / 180 250 / 250 Balance 20 / 1435 1250 / 1250 Weight last 48 hrs Weight 86.183 kg Physical Exam Narrative: EXAM NARRATIVE: No acute distress. Confused. Disoriented. Responses are adequate. Skin is warm and dry. Dry mucous membranes Neck is supple. No JVD Lungs decreased breath sounds and bibasilar crackles. No respiratory distress at rest. Heart S1, S2, regular Abdomen soft, nontender, bowel sounds are present Extremities left distal foot amputation. The wound seems to be dry without any discharge or bleeding. There is small distal wound on the age covered with dry granulations. There is no surrounding significant edema. Redness is minimal. Area is not tender. No discharge. Const: COMMON NORMALS: no apparent distress and oriented x3 GENERAL APPEARANCE: cooperative, disheveled, lethargic and ill appearing ORIENTATION/CONSCIOUSNESS: Yes awake, Yes oriented to person, Yes confused and Yes lethargic; not oriented to place and not oriented to time HENMT: COMMON NORMALS: normocephalic and external ears normal HEAD & SCALP: normocephalic FACE & SINUS: normal facial exam EXTERNAL EAR: Yes external ears normal TEETH & GINGIVA: no abnormal tooth and associated gingiva Eye: COMMON NORMALS: PERRL, EOMs intact bilaterally, conjunctivae normal and no papilledema GENERAL EYE: normal appearance of both eyes EYELID: eyelids normal CONJUNCTIVA: Yes conjunctivae normal PUPIL: Yes PERRL DIRECT OPHTHALMOSCOPY: Yes no papilledema Neck/C-Spine: COMMON NORMALS: full ROM, no lymphadenopathy, no JVD and thyroid normal GENERAL: No tracheal deviation THYROID: thyroid normal Lymph: LYMPHATIC: no lymphadenopathy noted Chest: COMMONS NORMALS: inspection of chest normal CHEST: No tenderness OTHER: Right chest wall tunneled dialysis catheter site appears to be clean. Resp: COMMON NORMALS: normal respiratory effort, no retractions, no use of accessory muscles and clear to auscultation bilaterally EFFORT & INSPECTION: No tachypneic, No respiratory distress, No retractions, No uses accessory muscles and No tracheal deviation AUSCULTATION: clear to auscultation bilaterally, no rhonchi, no wheezes and lung sounds not diminished Cardio: COMMON NORMALS: no JVD, regular rate, regular rhythm, S1 normal heart sound, S2 normal heart sound, no gallops, no clicks, no murmurs and no rub RA TE: regular rate RHYTHM: regular rhythm HEART SOUNDS: S1 normal, S2 normal and no murmurs PERIPHERAL PULSES: radial pulses present GI: COMMON NORMALS: normal to inspection, nondistended, normoactive bowel sounds, soft to palpation, non-tender and no hepatosplenomegaly INSPECTION: No abdominal distension AUSCULTATION: No hypoactive bowel sounds PALPATION: Yes soft, No guarding, No rigid and Yes no hepatosplenomegaly PERCUSSION: no dullness to percussion and no tympanic to percussion Extremity: COMMON NORMALS: normal to inspection, full ROM and no pedal edema NARRATIVE EXTREMITY EXAM: Left lower extremity transmetatarsal amputation, area of gangrene lateral aspect of left foot, slight surrounding erythema, slight tenderness, no visible drainage, Neuro: COMMON NORMALS: oriented x3, CN's II-XII intact bilaterally, moves all extremities and no focal motor deficits SENSORIUM/ORIENTATION: Yes oriented to person, No oriented to place, No oriented to time, Yes lethargic, Yes somnolent and Yes fluctuating sensorium Psych: COMMON NORMALS: mental status grossly normal, thought process normal, cooperative and speech normal ATTITUDE: Yes agitated ACTIVITY/MOTOR BEHAVIOR: Yes fidgeting SPEECH: Yes normal speech MOOD & AFFECT: Yes flat affect THOUGHT PROCESS: normal thought process and circumstantial THOUGHT CONTENT: Yes delusion(s) INSIGHT: limited Skin: COMMON NORMALS: no rashes or lesions noted GENERAL SKIN EXAM: no ra shes or lesions noted Data : 08/29/19 04:58 08/29/19 08:10 Micro: Microbiology 08/28/19 13:16 Blood Culture - Preliminary Blood NEGATIVE TO DATE 08/28/19 13:24 Blood Culture - Preliminary Blood NEGATIVE TO DATE 08/28/19 12:24 Gram Stain - Final Toe - Left Big Wound Culture - Preliminary 08/28/19 01:50 Blood Culture - Preliminary Blood NEGATIVE TO DATE 08/28/19 01:55 Blood Culture - Preliminary Blood NEGATIVE TO DATE 08/28/19 10:03 MRSA Culture - Final Nose 08/28/19 02:50 Bacterial Antigens - Final Urine,Clean Catch A&P Additional A&P Information 1. ESRD - for dialysis tomorrow 2K, UF 2-3L - am labs - dose meds for eGFR < 15 on dialysis 2. HyperK resolved with dialysis 3. 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 Hyperphos; cont outpatient meds; will encourage diet and binder compliance 5. AMS - likely metabolic encephalopathy - being evaluated for sepsis inc COVID rule out - empirical coverage with Vanco and Zosyn - uremia may have playefd a role also - interview and exam performed with aid of the bedside RN using the telemed media - thanks Attestations Medical Necessity Statement*: eval and mgmt of ESRD Coding Level of Care Code Acute Faculty Support Coordinator for Rafael Chambers
[2019-08-29] MEDS: morphine 4 mg/mL SDV 1 mL IVP (17:02)
--- NOTE | 2019-08-29 17:43 | PM.OP ---
Operative Report Date of procedure: August 29, 2019 Pre-op Diagnosis: Eschar left transmetatarsal amputation incision line Post-op diagnosis: same Procedure Done: Debridement of left transmetatarsal amputation Pathology: none sent Surgeon: Braeden Koch Anesthesia: Local (12 cc 1% lidocaine infiltrated locally) Condition: stable Disposition: ICU Brief History: 59-year-old gentleman with end-stage renal disease status post transmetatarsal amputation left forefoot due to arterial insufficiency. There has been some local breakdown laterally along the incision line. Eschar debridement has been recommended. Procedure: Mr. Baugh's left foot was sterilely prepped and draped. 1% lidocaine was infiltrated circumferentially around the eschared region at the lateral margin of the transmetatarsal imitation incision line. Sharp debridement with a #15 scalpel he was then performed to remove this eschar and debride underlying devitalized tissue. No soila purulence or abscess was encountered. Modest bleeding was encountered and easily controlled with pressure. After lidocaine injection, he was anesthetic for the entire debridement procedure. Once completed, wet-to-dry dressing changes has been applied and will be done daily. We will continue with daily wet-to-dry dressing changes. For discharge, he will follow-up in wound care services.
[2019-08-29] MEDS: trazodone 50 mg Tablet PO (20:25)
[2019-08-30] VITALS (13 sets, daily range): BP systolic 99–128; BP diastolic 54–83; PULSE 82–100; RESP 14–18; TEMP 36.9–37.8; O2SAT 90–97
--- NOTE | 2019-08-30 00:24 | PC.NURSE ---
While positioning patient in bed patient stated I want to go home. You don't know it yet but you all will soon.
[2019-08-30] MEDS: piperacillin-tazobactam 3.375 GM in sodium chloride 0.9% (plus) 50 ML IV ×2 (02:57→15:43)
--- NOTE | 2019-08-30 04:31 | PC.NURSE ---
While boosting patient up in bed, patient states that I will walk out of here today. It doesn't matter what I have to do. My mother lives close to here. nurse explained to patient that we are not here to hurt patient and are working to help get him back to his baseline self. patient is still agitated with staff and wanting to leave.
[2019-08-30 04:40] LABS: Basophils % 0.1 %; Eosinophils # 0.2 10^3/uL (0.0-0.8); Eosinophils % 2.4 %; Hematocrit 31.9 % (42.0-52.0); Hemoglobin 9.7 g/dL (11.7-16.6); Lymphocytes # 1.1 10^3/uL (0.8-4.8); Lymphocytes % 15.7 %; Mean Corpuscular HGB Conc 30.4 g/dL (30.0-36.0); Mean Corpuscular Hemoglobin 33.6 pg (28.0-34.0); Mean Corpuscular Volume 110.4 fL (80-94); Mean Platelet Volume 9.9 fL (7.4-10.4); Monocytes # 0.6 10^3/uL (0.2-0.9); Monocytes % 8.1 %; Neutrophils % 72.7 %; Nucleated Red Blood Cells % 0 %; Platelet Count 188 10^3/cmm (130-400); Red Blood Count 2.89 10^6/uL (4.1-5.3); White Blood Count 6.9 10^3/uL (4.0-10.0)
[2019-08-30 04:56] LABS: Chloride 107 mmol/L (98-107); Sodium 151 mmol/L (136-145)
[2019-08-30 05:16] LABS: Alanine Aminotransferase 30 U/L (0-41); Alkaline Phosphatase 219 IU/L (40-130); Aspartate Amino Transferase 31 U/L (0-40); Blood Urea Nitrogen 51 mg/dL (8-23); Calcium 9.7 mg/dL (8.5-10.5); Carbon Dioxide 24 mmol/L (22-29); Glomerular Filtration Rate 4.2 mL/min (90-130); Glucose 109 mg/dL (65-115); Magnesium 2.4 mg/dL (1.7-2.3); Total Bilirubin 0.3 mg/dL (0.15-1.2); Total Protein 5.2 g/dL (6.6-8.7)
[2019-08-30 05:27] LABS: Osmolality Calculated 311 mOsm/kg (285-295)
[2019-08-30 05:29] LABS: Phosphorus 7.9 mg/dL (2.5-4.5)
[2019-08-30 05:44] LABS: Globulin 2.2 g/dL (1.3-4.6)
--- NOTE | 2019-08-30 10:41 | P.PN_ITS ---
Subjective Subjective: Interval history: No acute events overnight. Today morning patient was examined during hemodialysis session. He denies of having any nausea, vomiting, headache, dizziness. Debridement of the wound done by Dr. Koch yesterday. Patient is insistent on going home today. Labs and vital signs noted. Vitals/I&O/Wt Last Vital Signs Temp 99.1 F 08/30/19 08:00 Pulse 88 08/30/19 10:00 Resp 18 08/30/19 10:00 BP 105/55 08/30/19 10:00 Pulse Ox 92 08/30/19 10:00 08/29/19 08/30/19 08/30/19 22:59 06:59 14:59 Intake Total 320 / 1820 150 / 1970 Balance 320 / 1570 150 / 1720 Data : 08/30/19 04:25 08/30/19 04:25 Micro: Microbiology 08/29/19 11:11 Urine Culture - Preliminary Urine,Voided 08/28/19 12:24 Gram Stain - Final Toe - Left Big Wound Culture - Preliminary Staphylococcus aureus 08/28/19 13:16 Blood Culture - Preliminary Blood NEGATIVE TO DATE 08/28/19 13:24 Blood Culture - Preliminary Blood NEGATIVE TO DATE A&P Assessment and plan (1) Sepsis: Status: Acute (2) Osteomyelitis: Status: Acute (3) Altered mental status: Status: Acute (4) HCAP (healthcare-associated pneumonia): Status: Acute (5) Pulmonary nodules/lesions, multiple: Status: Acute (6) Critical lower limb ischemia: Status: Acute (7) Hemodialysis patient: I have consulted nephrology for hemodialysis this morning Status: Acute (8) Hypertension: Status: Acute (9) Type 2 diabetes mellitus: Status: Acute (10) Cellulitis of left foot: Status: Acute (11) S/P transmetatarsal amputation of foot: Status: Acute Additional A&P Information Sepsis: Most likely due to a combination of osteomyelitis and possible H CAP. Foot CT appreciated. Continue with vancomycin and Zosyn for now. Wound cultures from debridement growing staph aureus. Will de-escalate antibiotics as per sensitivities. Patient would most likely need antibiotic course for [address] Koch's input. We will discuss with pharmacy to keep Vanco trough around 20. Will add Vanco random levels to morning labs as patient is already undergoing dialysis right now. COVID 19 test back as negative. Altered mental status: Acute encephalopathy most likely secondary to uremia along with sepsis: Resolved. Multiple pulmonary nodules: Cannot rule out septic embolus versus possible malignancy. Echocardiogram results appreciated though the study was inconclusive as patient was noncompliant. Due to osteomyelitis patient would anyways need 6 weeks course of antibiotics so will hold off on further evaluation for now and will repeat CT chest after 6 weeks course completion of antibiotic course. 96-hour hold: As per the request from family members due to concerns of self harming behavior. The patient is on one-on-one observation. Dr. Rosenbaum to see patient today. End-stage renal disease: On maintenance hemodialysis with schedule on Wednesday, Wednesday, Wednesday. Appreciate Dr. King's recommendation. Hypertension: Patient's blood pressure running on the lower side. Most likely due to sepsis. We will hold off on home dose of clonidine and amlodipine for now. We will continue home dose of carvedilol to prevent refractory tachycardia. History of severe peripheral arterial disease. On statin and Plavix. Might need additional testing in outpatient settings after stabilization of his current acute problems. Heparin for DVT prophylaxis. Full code. Renal dialysis diet. Attestations Medical Necessity Statement*: Sepsis, osteomyelitis, multiple pleural pulmonary nodules, 96-hour hold for self harming behavior. Time Spent in Patient Care: Greater than 35 minutes Coding Level of Care Code Acute Vice President Global Advertising Sales for [facility] Fwd Diagnoses Sepsis A41.9 Osteomyelitis M86.9 Altered mental status R41.82 HCAP (healthcare-associated pneumonia) J18.9 Pulmonary nodules/lesions, multiple R91.8 Critical lower limb ischemia I99.8 Hemodialysis patient Z99.2 Hypertension I10 Type 2 diabetes mellitus E11.9 Cellulitis of left foot L03.116 S/P transmetatarsal amputation of foot Z89.439
[2019-08-30] MEDS: HYDROcodone-acetaminophen 5-325 mg Tablet PO ×2 (11:01→14:01)
[2019-08-30 11:12] LABS: Vancomycin Random 15.2 ug/mL (20.0-40.0)
[2019-08-30] MEDS: heparin, porcine 1,000 unit/mL INJ 10 mL 20000 UNIT HE (11:58)
[2019-08-30] MEDS: carvedilol 25 mg Tablet PO (12:05)
[2019-08-30] MEDS: allopurinol 100 mg Tablet 150 MG PO (12:05)
[2019-08-30] MEDS: clopidogrel 75 mg Tablet PO (12:05)
[2019-08-30] MEDS: atorvastatin 40 mg Tablet PO (12:06)
[2019-08-30] MEDS: acetaminophen 325 mg Tablet 650 MG PO (14:00)
[2019-08-30] MEDS: vancomycin 1,000 MG in sodium chloride 0.9% 250 ML 250 MG IV (14:01)
--- NOTE | 2019-08-30 14:32 | P.PN_ITS ---
Subjective Subjective: Interval history: No new issues today; more lucid but still having episodes of confusion comfortable, keen to go home. Dialysis performed today without incident, tolerated procedure well. Medications: Reviewed: Yes Medication Review Details: Generic Name Dose Route Start Last Admin Trade Name Freq PRN Reason Stop Dose Admin Acetaminophen 650 mg 08/29/19 07:42 08/29/19 08:40 Tylenol PO 650 mg Q6H PRN Administration Mild Pain or feve r Hydrocodone Bitart /Acetaminophen 0.5 - 1 tab 08/28/19 09:35 08/28/19 17:41 [place] 5-325 Mg PO 1 tab Q4H PRN Administration Pain Allopurinol 150 mg 08/28/19 09:35 08/29/19 08:39 Zyloprim PO 150 mg DAILY FRANCISCO Administration Amlodipine Besylat e 5 mg 08/28/19 09:35 08/29/19 08:40 Norvasc PO 5 mg BID FRANCISCO Administration Atorvastatin Calci um 40 mg 08/28/19 09:35 08/29/19 08:40 Lipitor PO 40 mg DAILY FRANCISCO Administration Carvedilol 25 mg 08/28/19 09:35 08/29/19 08:41 Coreg PO 25 mg BID FRANCISCO Administration Clonidine HCl 0.1 mg 08/28/19 09:35 08/29/19 08:40 Catapres PO 0.1 mg BID FRANCISCO Administration Clopidogrel Bisulf ate 75 mg 08/29/19 09:00 08/29/19 08:40 Plavix PO 75 mg DAILY FRANCISCO Administration Piperacillin Sod/T azobactam 50 mls @ 12.5 mls /hr 08/29/19 00:15 08/29/19 06:00 Sod 3.375 gm/ So dium Chloride IV Infused Q12H FRANCISCO Infusion Protocol As Directed Sevelamer Carbonat e 800 mg 08/28/19 18:00 08/29/19 08:40 Renvela PO 800 mg TIDWM FRANCISCO Administration Trazodone HCl 50 mg 08/28/19 21:00 08/28/19 19:46 Desyrel PO 50 mg BEDTIME FRNACISCO Administration Vitals/I&O/Wt Last Vital Signs Temp 100.1 F H 08/30/19 12:00 Pulse 100 08/30/19 12:00 Resp 18 08/30/19 12:00 BP 113/61 08/30/19 12:00 Pulse Ox 90 08/30/19 12:00 08/29/19 08/30/19 08/30/19 22:59 06:59 14:59 Intake Total 320 / 1820 150 / 1970 50 / 50 Output Total 200 / 200 Balance 320 / 1570 150 / 1720 -150 / -150 Physical Exam Narrative: EXAM NARRATIVE: No acute distress. Confused. Disoriented. Responses are adequate. Skin is warm and dry. Dry mucous membranes Neck is supple. No JVD Lungs decreased breath sounds and bibasilar crackles. No respiratory distress at rest. Heart S1, S2, regular Abdomen soft, nontender, bowel sounds are present Extremities left distal foot amputation. The wound seems to be dry without any discharge or bleeding. There is small distal wound on the age covered with dry granulations. There is no surrounding significant edema. Redness is minimal. Area is not tender. No discharge. Const: COMMON NORMALS: no apparent distress and oriented x3 GENERAL APPEARANCE: cooperative, disheveled, lethargic and ill appearing ORIENTATION/CONSCIOUSNESS: Yes awake, Yes oriented to person, Yes confused and Yes lethargic; not oriented to place and not oriented to time HENMT: COMMON NORMALS: normocephalic and external ears normal HEAD & SCALP: normocephalic FACE & SINUS: normal facial exam EXTERNAL EAR: Yes external ears normal TEETH & GINGIVA: no abnormal tooth and associated gingiva Eye: COMMON NORMALS: PERRL, EOMs intact bilaterally, conjunctivae normal and no papilledema GENERAL EYE: normal appearance of both eyes EYELID: eyelids normal CONJUNCTIVA: Yes conjunctivae normal PUPIL: Yes PERRL DIRECT OPHTHALMOSCOPY: Yes no papilledema Neck/C-Spine: COMMON NORMALS: full ROM, no lymphadenopathy, no JVD and thyroid normal GENERAL: No tracheal deviation THYROID: thyroid normal Lymph: LYMPHATIC: no lymphadenopathy noted Chest: COMMONS NORMALS: inspection of chest normal CHEST: No tenderness OTHER: Right chest wall tunneled dialysis catheter site appears to be clean. Resp: COMMON NORMALS: normal respiratory effort, no retractions, no use of accessory muscles and clear to auscultation bilaterally EFFORT & INSPECTION: No tachypneic, No respiratory distress, No retractions, No uses accessory muscles and No tracheal deviation AUSCULTATION: clear to auscultation bilaterally, no rhonchi, no wheezes and lung sounds not diminished Cardio: COMMON NORMALS: no JVD, regular rate, regular rhythm, S1 normal heart sound, S2 normal heart sound, no gallops, no clicks, no murmurs and no rub RATE: regular rate RHYTHM: regular rhythm HEART SOUNDS: S1 normal, S2 normal and no murmurs PERIPHERAL PULSES: radial pulses present GI: COMMON NORMALS: normal to inspection, nondistended, normoactive bowel sounds, soft to palpation, non-tender and no hepatosplenomegaly INSPECTION: No abdominal distension AUSCULTATION: No hypoactive bowel sounds PALPATION: Yes soft, No guarding, No rigid and Yes no hepatosplenomegaly PERCUSSION: no dullness to percussion and no tympanic to percussion Extremity: COMMON NORMALS: normal to inspection, full ROM and no pedal edema NARRATIVE EXTREMITY EXAM: Left lower extremity transmetatarsal amputation, area of gangrene lateral aspect of left foot, slight surrounding erythema, slight tenderness, no visible drainage, Neuro: COMMON NORMALS: oriented x3, CN's II-XII intact bilaterally, moves all extremities and no focal motor deficits SENSORIUM/ORIENTATION: Yes oriented to person, No oriented to place, No oriented to time, Yes lethargic, Yes somnolent and Yes fluctuating sensorium Psych: COMMON NORMALS: mental status grossly normal, thought process normal, cooperative and speech normal ATTITUDE: Yes agitated ACTIVITY/MOTOR BEHAVIOR: Yes fidgeting SPEECH: Yes normal speech MOOD & AFFECT: Yes flat affect THOUGHT PROCESS: normal thought process and circumstantial THOUGHT CONTENT: Yes delusion(s) INSIGHT: limited Skin: COMMON NORMALS: no rashes or lesions noted GENERAL SKIN EXAM: no rashes or lesions noted Data : 08/30/19 04:25 08/30/19 04:25 Micro: Microbiology 08/29/19 11:11 Urine Culture - Preliminary Urine,Voided 08/28/19 12:24 Gram Stain - Final Toe - Left Big Wound Culture - Preliminary Staphylococcus aureus 08/28/19 13:16 Blood Culture - Preliminary Blood NEGATIVE TO DATE 08/28/19 13:24 Blood Culture - Preliminary Blood NEGATIVE TO DATE A&P Additional A&P Information 1. ESRD - S/p dialysis today, next planned on Wednesday - 2K, UF 2-3L - am labs - dose meds for eGFR < 15 on dialysis 2. HyperK resolved with dialysis 3. 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 Hyperphos; cont outpatient meds; will encourage diet and binder compliance 5. AMS - likely metabolic encephalopathy - being evaluated for sepsis - empirical coverage with Vanco and Zosyn - uremia may have playefd a role also 6. Foot TMA debridement 08/28 - interview and exam performed with aid of the bedside RN using the telemed media - thanks Attestations Medical Necessity Statement*: mgmt of ESRD Coding Level of Care Code Acute Web Content & Social Media Manager for Rafael Chambers
--- NOTE | 2019-08-30 15:39 | PM.PSYCN ---
Providers/Reason for Consult Consulting Physican/Specialty*: Sixto Rosenbaum MD. Psychiatry Reason for Consult*: Capacity Attending Physician: Luciano Martinez MD Psych Consult HPI History of Present Illness Joshua Baugh is a 59 year old male who presented today reporting that he wants to go home, and he was very resistant to the interview. This gag writer revealed to him the purpose of the interview, to understand what his concerns were and to make sure he was functioning at a level that allowed his decision making to be utilized in the process of determining medical choices, and whether he is able to make informed consent. He was put on a 96-hour hold that was initiated by his . His reported that he had been at home, and he had stopped taking care of himself, and that he had been naked when they had company and was just not functioning well at all. He attempted to give answers for those behaviors but none of them made any sense. Ultimately, he reported he is fine and there are no concerns and he should be discharged immediately. He spent much of the time, during the interview, asking to speak to his and also speak to his doctor. He was informed that his doctor has been informed and supports the treatment teams position on where to with his treatment, given the fact that he has an infection in the foot where his amputation took place, and he has a fever reflecting an infection. Currently, it was explained to him, that they were culturing the wound and hoping to make sure that he was getting the appropriate antibiotics so that he can go home. He was not hearing that and was approaching things in a very irrational process. He could not show true understanding of his condition. He could not demonstrate an understanding of the options or the impact of the options, he did express a choice, which was the only piece of the four pillars of informed consent that he could make, and regardless of what information this gag writer provided, the only solution he saw to his situation was being allowed to leave and that he did not understand why he was being made to stay, even as he was provided the exact information as to why that is. He was not interested in answering psycho-social questions, however, as far as the question of being able to make informed consent, that question was able to be answered in the interview that he allowed to occur. Meds Current Medications: Current Medications Generic Name Dose Route Start Last Admin Trade Name Freq PRN Reason Stop Dose Admin Acetaminophen 650 mg 08/29/19 07:42 08/31/19 03:35 Tylenol PO 650 mg Q6H PRN Administration Mild Pain or feve r Hydrocodone Bitart /Acetaminophen 0.5 - 1 tab 08/28/19 09:35 08/30/19 14:01 [place] 5-325 Mg PO 1 tab Q4H PRN Administration Pain Allopurinol 150 mg 08/28/19 09:35 08/30/19 12:05 Zyloprim PO 150 mg DAILY [facility] Administration Amlodipine Besylat e 5 mg 08/28/19 09:35 08/30/19 12:55 Norvasc PO Not Given BID [facility] Atorvastatin Calci um 40 mg 08/28/19 09:35 08/30/19 12:06 Lipitor PO 40 mg DAILY [facility] Administration Carvedilol 25 mg 08/28/19 09:35 08/30/19 20:44 Coreg PO Not Given BID [facility] Clonidine HCl 0.1 mg 08/28/19 09:35 08/30/19 12:56 Catapres PO Not Given BID [facility] Clopidogrel Bisulf ate 75 mg 08/29/19 09:00 08/30/19 12:05 Plavix PO 75 mg DAILY [facility] Administration Heparin Sodium (Be ef Lung) 5,000 unit 08/29/19 09:16 08/30/19 21:17 Heparin SUBCUT Not Given Q8H [facility] Piperacillin Sod/T azobactam 50 mls @ 12.5 mls /hr 08/29/19 00:15 08/31/19 01:54 Sod 3.375 gm/ So dium Chloride IV 12.5 mls/hr Q12H [facility] Administration Protocol As Directed Vancomycin HCl 1,0 00 mg/ 250 mls @ 250 mls /hr 08/30/19 13:30 08/30/19 14:01 Sodium Chloride IV 250 mls/hr MoWeFr [facility] Administration Protocol Lorazepam 1 mg 08/30/19 14:59 08/30/19 15:43 Ativan IVP 1 mg Q6H PRN Administration ANXIETY Sevelamer Carbonat e 800 mg 08/28/19 18:00 08/30/19 18:40 Renvela PO Not Given TIDWM [facility] Trazodone HCl 50 mg 08/28/19 21:00 08/30/19 21:10 Desyrel PO 50 mg BEDTIME [facility] Administration PFSH NPU PFSH: Medical History Arthritis Chronic kidney disease (CKD) Critical lower limb ischemia Diabetes Uncontrolled Hemodialysis patient Hemodialysis 3 days a week Hypertension Non-healing ulcer Left Toe Peripheral vascular disease Surgical History History of colostomy History of partial colectomy History of prostate surgery Status post transmetatarsal amputation of left foot Severe, non-reconstructable peripheral vascular disease with gangrenous changes left forefoot Family History Sister Cancer Social History Smoking and tobacco status: never smoked Quit status (tobacco): has quit using tobacco Mental Status Exam MSE Comments: This is a underweight, white male, with limited dress with hospital gown on, and limited grooming, but appropriate eye contact. No abnormal movements, except for psychomotor agitation. Uncooperative with exam in mild to moderate distress. Speech was increased rate and volume. Mood described as fine; affect irritable and agitated. Thought process, organized, for the most part. Thought content: patient denied any suicidal or homicidal ideation, there were no delusions reported but he did seem somewhat paranoid, he denied any auditory or visual hallucinations and did not appear to be attending to internal stimuli. Attention and concentration were mostly intact, and memory was unreliable, but none were formally tested. He is alert and oriented times person and place. Insight and judgment are impaired. Vitals/I&O/Wt Last Vital Signs Temp 100.3 F H 08/31/19 03:38 Pulse 89 08/31/19 02:00 Resp 18 08/31/19 02:00 BP 123/60 08/31/19 02:00 Pulse Ox 94 08/31/19 02:00 08/30/19 08/30/19 08/31/19 14:59 22:59 06:59 Intake Total 50 / 50 50 / 100 Output Total 200 / 200 Balance -150 / -150 50 / -100 Data NPU Micro: Micro: Microbiology 08/29/19 11:11 Urine Culture - Pr eliminary Urine,Voided 08/28/19 12:24 Gram Stain - Final Toe - Left Big Wound Culture - Pr eliminary Staphylococcus aureus Microbiology 08/29/19 11:11 Urine,Voided Urine Culture - Preliminary 08/28/19 12:24 Toe - Left Big Gram Stain - Final 08/28/19 12:24 Toe - Left Big Wound Culture - Preliminary Staphylococcus aureus A&P Assessment and plan (1) Altered mental status: This is a 59 year old, white male, with a recent history of significant issues regarding his medical comorbidities with peripheral vascular disease, leading to a partial amputation of his foot, who presents with some wound dehiscence and infection of that same foot, with an unwillingness to choose to work with the treatment team for his overall care. Continue current medication. Can give Ativan 1 mg IV q 6 as needed for agitation. Patient was evaluated and currently lacks the ability to make informed consent, the treatment team should proceed with best practice in treatment to bring about the best result. I will continue to follow daily to identify any developing needs. Status: Acute Attestations NPU Medical Necessity Statement*: N/A Please refer to primary team for inpatient medical necessity. As his time in the hospital advances and his condition improves, we will identify whether inpatient psychiatric care is indicated. 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
[2019-08-30] MEDS: LORazepam 2 mg/mL INJ 1 mL 1 MG IVP (15:43)
--- NOTE | 2019-08-30 20:43 | PC.NURSE ---
Pt refuses to allow temperature to be taken at this time. Will recheck.
[2019-08-30] MEDS: trazodone 50 mg Tablet PO (21:10)
[2019-08-31] VITALS (16 sets, daily range): BP systolic 95–143; BP diastolic 54–89; PULSE 76–98; RESP 13–31; TEMP 36.3–37.9; O2SAT 87–99
[2019-08-31] MEDS: piperacillin-tazobactam 3.375 GM in sodium chloride 0.9% (plus) 50 ML IV ×2 (01:54→15:13)
[2019-08-31] MEDS: acetaminophen 325 mg Tablet 650 MG PO ×2 (03:35→10:33)
--- NOTE | 2019-08-31 04:49 | PC.NURSE ---
Patient refusing subQ heparin injection, states that he doesn't need that and that I'll decide later if I want it. Educated patient on rationale for medication and risks of declining medication, patient verbalizes understanding but continues to refuse medication.
[2019-08-31 04:53] LABS: Basophils % 0.1 %; Eosinophils # 0.2 10^3/uL (0.0-0.8); Eosinophils % 2.6 %; Hemoglobin 10.4 g/dL (11.7-16.6); Lymphocytes # 1.1 10^3/uL (0.8-4.8); Lymphocytes % 16.1 %; Mean Corpuscular HGB Conc 30.6 g/dL (30.0-36.0); Mean Corpuscular Hemoglobin 33.8 pg (28.0-34.0); Mean Corpuscular Volume 110.4 fL (80-94); Mean Platelet Volume 9.6 fL (7.4-10.4); Monocytes # 0.5 10^3/uL (0.2-0.9); Monocytes % 7.3 %; Neutrophils # 5.1 10^3/uL (1.8-7.7); Neutrophils % 72.8 %; Nucleated Red Blood Cells % 0 %; Platelet Count 221 10^3/cmm (130-400); Red Blood Count 3.08 10^6/uL (4.1-5.3); Red Cell Distribution Width 15.9 % (12.1-15.1)
[2019-08-31 05:08] LABS: Vancomycin Random 25.1 ug/mL (20.0-40.0)
[2019-08-31 05:24] LABS: Alanine Aminotransferase 33 U/L (0-41); Albumin Level 2.7 g/dL (3.5-5.2); Alkaline Phosphatase 381 IU/L (40-130); Anion Gap 24.2 (5-19); Aspartate Amino Transferase 36 U/L (0-40); Blood Urea Nitrogen 34 mg/dL (8-23); Calcium 10.3 mg/dL (8.5-10.5); Carbon Dioxide 23 mmol/L (22-29); Chloride 95 mmol/L (98-107); Globulin 3.7 g/dL (1.3-4.6); Glomerular Filtration Rate 5.6 mL/min (90-130); Glucose 91 mg/dL (65-115); Magnesium 2.3 mg/dL (1.7-2.3); Osmolality Calculated 281 mOsm/kg (285-295); Phosphorus 7.6 mg/dL (2.5-4.5); Potassium 5.2 mmol/L (3.5-5.1); Sodium 137 mmol/L (136-145); Total Bilirubin 0.4 mg/dL (0.15-1.2); Total Protein 6.4 g/dL (6.6-8.7)
[2019-08-31] MEDS: HYDROcodone-acetaminophen 5-325 mg Tablet PO ×2 (08:03→16:35)
[2019-08-31] MEDS: allopurinol 100 mg Tablet 150 MG PO (08:03)
[2019-08-31] MEDS: sevelamer 800 mg Tablet PO ×3 (08:03→16:37)
[2019-08-31] MEDS: clopidogrel 75 mg Tablet PO (08:03)
[2019-08-31] MEDS: atorvastatin 40 mg Tablet PO (08:05)
[2019-08-31] MEDS: carvedilol 25 mg Tablet PO ×2 (08:05→16:40)
--- NOTE | 2019-08-31 10:00 | P.PN_ITS ---
Subjective Subjective: Interval history: No acute events overnight. Patient lying comfortably in bed on evaluation today morning. Denies of having any headache, nausea, vomiting, palpitations, dizziness. Patient underwent successful, uneventful dialysis session yesterday. Vitals noted. Labs noted. Wound cultures growing MRSA. Vitals/I&O/Wt Last Vital Signs Temp 98.5 F 08/31/19 06:00 Pulse 93 08/31/19 06:00 Resp 14 08/31/19 06:00 BP 121/79 08/31/19 06:00 Pulse Ox 95 08/31/19 06:00 08/30/19 08/31/19 08/31/19 22:59 06:59 14:59 Intake Total 50 / 100 50 / 150 300 / 300 Output Total 100 / 300 Balance 50 / -100 -50 / -150 300 / 300 Weight last 48 hrs Weight 87.77 kg Physical Exam Narrative: EXAM NARRATIVE: General: No acute distress, AO x3 HEENT: PERRLA, pupils bilaterally equal and reactive Chest: Normal vesicular breath sounds, no added sounds, equal good air entry bilaterally, dialysis port present in the right hemithorax. CVS: S1-S2 regular, no murmurs, no tachycardia, no gallops, no rubs Abdomen: Soft, nontender, no organomegaly, bowel sounds present Neuro: No focal deficits, no facial deformity, AO x3, power 5/5 in all limbs. Extremities left distal foot amputation. The larger wound is covered with dressing which is dry and clean. The smaller wound without evidence of discharge or bleeding. No significant surrounding hyperemia. Data : 08/31/19 04:40 08/31/19 04:40 Micro: Microbiology 08/28/19 12:24 Gram Stain - Final Toe - Left Big Wound Culture - Final Methicillin Resis Staph Aureus 08/29/19 11:11 Urine Culture - Preliminary Urine,Voided A&P Assessment and plan (1) Sepsis: Status: Acute (2) Osteomyelitis: Status: Acute (3) Altered mental status: Status: Acute (4) HCAP (healthcare-associated pneumonia): Status: Acute (5) Pulmonary nodules/lesions, multiple: Status: Acute (6) Critical lower limb ischemia: Status: Acute (7) Hemodialysis patient: I have consulted nephrology for hemodialysis this morning Status: Acute (8) Hypertension: Status: Acute (9) Type 2 diabetes mellitus: Status: Acute (10) Cellulitis of left foot: Status: Acute (11) S/P transmetatarsal amputation of foot: Status: Acute Additional A&P Information Sepsis: Most likely due to a combination of osteomyelitis and possible H CAP. Foot CT appreciated. Zosyn day 4 today. Tomorrow will be last dose of Zosyn for H CAP. Vancomycin for osteomyelitis. Wound cultures growing MRSA. Patient would need vancomycin for overall 6 weeks for osteomyelitis along with dialysis sessions keeping Vanco trough around 20. Appreciate Dr. Koch's input. COVID 19 test back as negative. Altered mental status: Acute encephalopathy most likely secondary to uremia along with sepsis: Resolved. Multiple pulmonary nodules: Cannot rule out septic embolus versus possible malignancy. Echocardiogram results appreciated though the study was inconclusive as patient was noncompliant. Due to osteomyelitis patient would anyways need 6 weeks course of antibiotics so will hold off on further evaluation for now and will repeat CT chest after 6 weeks course completion of antibiotic course. 96-hour hold: As per the request from family members due to concerns of self harming behavior. The patient is on one-on-one observation. 96-hour hold till August 31, 4:[address] Rosenbaum to see patient today. End-stage renal disease: On maintenance hemodialysis with schedule on Wednesday, Wednesday, Wednesday. Appreciate Dr. King's recommendation. Hypertension: Patient's blood pressure running on the lower side. Most likely due to sepsis. We will hold off on home dose of clonidine and amlodipine for now. We will continue home dose of carvedilol to prevent refractory tachycardia. History of severe peripheral arterial disease. On statin and Plavix. Unfortunately, peripheral artery disease not amenable to revascularization. Heparin for DVT prophylaxis. Full code. Renal dialysis diet. Dispo: Discharge once cleared from psychiatry. Patient has denied SNF and will going home with home health. He has to follow-up with dialysis and wound care along with vancomycin along with dialysis till October 01. Attestations Medical Necessity Statement*: Sepsis, osteomyelitis, end-stage renal disease, 96-hour hold Time Spent in Patient Care: Greater than 35 minutes Coding Level of Care Code Acute Sales Representative Health Insurance for [facility] Diagnoses Sepsis A41.9 Osteomyelitis M86.9 Altered mental status R41.82 HCAP (healthcare-associated pneumonia) J18.9 Pulmonary nodules/lesions, multiple R91.8 Critical lower limb ischemia I99.8 Hemodialysis patient Z99.2 Hypertension I10 Type 2 diabetes mellitus E11.9 Cellulitis of left foot L03.116 S/P transmetatarsal amputation of foot Z89.439
[2019-08-31] MEDS: nicotine 21 mg Patch 1 PATCH TRANSDERMA (10:16)
[2019-08-31] MEDS: ondansetron 2 mg/ML SDV 2 mL 4 MG IVP (10:17)
[2019-08-31] MEDS: heparin 5,000 unit/mL INJ 1 mL 5000 UNIT SUBCUT ×2 (10:17→20:30)
--- NOTE | 2019-08-31 11:57 | PC.SOCIAL ---
Pg 2 IMM Explained to pt Pg 2 IMM. Pt verbally understands. No questions voiced. Provided a copy to pt & left on pt's bedside table. Signed, dated, & timed a copy then placed in pt's chart
--- NOTE | 2019-08-31 12:28 | PC.NURSE ---
0700 discussed with patient just how sick he was to not remember messing himself on the couch. that his family had to question his ability to make decisions in order to save his life. for the most part he remained calm and admitted he did not remember these issues. His main issue was that he needed his chewing tobacco but insisted patches would not work. When heparin discussed he thought we were talking about a nicotene product and then when we explained its use for the 3rd time he accepted heparin and the nicotene patch order given realizing that rational behavior and acceptance of his situration would help to get him discharged when the 96 hr hold was over. He demanded to have a face to face with August and the dr was called to confirm he would be coming today to see the patient after lunch. The paient refused breakfast as it was not country enough for him. He did have his lunch of roast pork and strawberries with potatoes and a ham sandwich. patient requires more diet teaching and infection prevention but his memory is still poor and his ability to reason is limited by his desire to resume work and his nicotene withdrawal.
--- NOTE | 2019-08-31 15:15 | PM.PN ---
Subjective Subjective: Interval history: Feels ok, remains keen to go home, no other new issues. Seen by Psychiatry. Dialysis yesterday without issue, tolerating therapy well. No edema and no other volume issues. Medications: Reviewed: Yes Medication Review Details: Generic Name Dose Route Start Last Admin Trade Name Freq PRN Reason Stop Dose Admin Acetaminophen 650 mg 08/29/19 07:42 08/29/19 08:40 Tylenol PO 650 mg Q6H PRN Administration Mild Pain or feve r Hydrocodone Bitart /Acetaminophen 0.5 - 1 tab 08/28/19 09:35 08/28/19 17:41 [place] 5-325 Mg PO 1 tab Q4H PRN Administration Pain Allopurinol 150 mg 08/28/19 09:35 08/29/19 08:39 Zyloprim PO 150 mg DAILY [facility] Administration Amlodipine Besylat e 5 mg 08/28/19 09:35 08/29/19 08:40 Norvasc PO 5 mg BID [facility] Administration Atorvastatin Calci um 40 mg 08/28/19 09:35 08/29/19 08:40 Lipitor PO 40 mg DAILY [facility] Administration Carvedilol 25 mg 08/28/19 09:35 08/29/19 08:41 Coreg PO 25 mg BID [facility] Administration Clonidine HCl 0.1 mg 08/28/19 09:35 08/29/19 08:40 Catapres PO 0.1 mg BID [facility] Administration Clopidogrel Bisulf ate 75 mg 08/29/19 09:00 08/29/19 08:40 Plavix PO 75 mg DAILY [facility] Administration Piperacillin Sod/T azobactam 50 mls @ 12.5 mls /hr 08/29/19 00:15 08/29/19 06:00 Sod 3.375 gm/ So dium Chloride IV Infused Q12H [facility] Infusion Protocol As Directed Sevelamer Carbonat e 800 mg 08/28/19 18:00 08/29/19 08:40 Renvela PO 800 mg TIDWM [facility] Administration Trazodone HCl 50 mg 08/28/19 21:00 08/28/19 19:46 Desyrel PO 50 mg BEDTIME [facility] Administration Vitals/I&O/Wt Last Vital Signs Temp 99.5 F 08/31/19 12:00 Pulse 79 08/31/19 12:00 Resp 15 08/31/19 12:00 BP 104/54 08/31/19 12:00 Pulse Ox 95 08/31/19 10:00 08/31/19 08/31/19 08/31/19 06:59 14:59 22:59 Intake Total 50 / 150 600 / 600 Output Total 100 / 300 Balance -50 / -150 600 / 600 Weight last 48 hrs Weight 87.77 kg Physical Exam Narrative: EXAM NARRATIVE: No acute distress. Confused. Disoriented. Responses are adequate. Skin is warm and dry. Dry mucous membranes Neck is supple. No JVD Lungs decreased breath sounds and bibasilar crackles. No respiratory distress at rest. Heart S1, S2, regular Abdomen soft, nontender, bowel sounds are present Extremities left distal foot amputation. The wound seems to be dry without any discharge or bleeding. There is small distal wound on the age covered with dry granulations. There is no surrounding significant edema. Redness is minimal. Area is not tender. No discharge. Const: COMMON NORMALS: no apparent distress and oriented x3 GENERAL APPEARANCE: cooperative, disheveled, lethargic and ill appearing ORIENTATION/CONSCIOUSNESS: Yes awake, Yes oriented to person, Yes confused and Yes lethargic; not oriented to place and not oriented to time HENMT: COMMON NORMALS: normocephalic and external ears normal HEAD & SCALP: normocephalic FACE & SINUS: normal facial exam EXTERNAL EAR: Yes external ears normal TEETH & GINGIVA: no abnormal tooth and associated gingiva Eye: COMMON NORMALS: PERRL, EOMs intact bilaterally, conjunctivae normal and no papilledema GENERAL EYE: normal appearance of both eyes EYELID: eyelids normal CONJUNCTIVA: Yes conjunctivae normal PUPIL: Yes PERRL DIRECT OPHTHALMOSCOPY: Yes no papilledema Neck/C-Spine: COMMON NORMALS: full ROM, no lymphadenopathy, no JVD and thyroid normal GENERAL: No tracheal deviation THYROID: thyroid normal Lymph: LYMPHATIC: no lymphadenopathy noted Chest: COMMONS NORMALS: inspection of chest normal CHEST: No tenderness OTHER: Right chest wall tunneled dialysis catheter site appears to be clean. Resp: COMMON NORMALS: normal respiratory effort, no retractions, no use of accessory muscles and clear to auscultation bilaterally EFFORT & INSPECTION: No tachypneic, No respiratory distress, No retractions, No uses accessory muscles and No tracheal deviation AUSCULTATION: clear to auscultation bilaterally, no rhonchi, no wheezes and lung sounds not diminished Cardio: COMMON NORMALS: no JVD, regular rate, regular rhythm, S1 normal heart sound, S2 normal heart sound, no gallops, no clicks, no murmurs and no rub RATE: regular rate RHYTHM: regular rhythm HEART SOUNDS: S1 normal, S2 normal and no murmurs PERIPHERAL PULSES: radial pulses present GI: COMMON NORMALS: normal to inspection, nondistended, normoactive bowel sounds, soft to palpation, non-tender and no hepatosplenomegaly INSPECTION: No abdominal distension AUSCULTATION: No hypoactive bowel sounds PALPATION: Yes soft, No guarding, No rigid and Yes no hepatosplenomegaly PERCUSSION: no dullness to percussion and no tympanic to percussion Extremity: COMMON NORMALS: normal to inspection, full ROM and no pedal edema NARRATIVE EXTREMITY EXAM: Left lower extremity transmetatarsal amputation, area of gangrene lateral aspect of left foot, slight surrounding erythema, slight tenderness, no visible drainage, Neuro: COMMON NORMALS: oriented x3, CN's II-XII intact bilaterally, moves all extremities and no focal motor deficits SENSORIUM/ORIENTATION: Yes oriented to person, No oriented to place, No oriented to time, Yes lethargic, Yes somnolent and Yes fluctuating sensorium Psych: COMMON NORMALS: mental status grossly normal, thought process normal, cooperative and speech normal ATTITUDE: Yes agitated ACTIVITY/MOTOR BEHAVIOR: Yes fidgeting SPEECH: Yes normal speech MOOD & AFFECT: Yes flat affect THOUGHT PROCESS: normal thought process and circumstantial THOUGHT CONTENT: Yes delusion(s) INSIGHT: limited Skin: COMMON NORMALS: no rashes or lesions noted GENERAL SKIN EXAM: no rashes or lesions noted Data : 08/31/19 04:40 08/31/19 04:40 Micro: Microbiology 08/29/19 11:11 Urine Culture - Final Urine,Voided 08/28/19 12:24 Gram Stain - Final Toe - Left Big Wound Culture - Final Methicillin Resis Staph Aureus A&P Additional A&P Information 1. ESRD - next planned on Wednesday - 2K, UF 2-3L - am labs - dose meds for eGFR < 15 on dialysis 2. HyperK resolved with dialysis 3. 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 Hyperphos; cont outpatient meds; will encourage diet and binder compliance 5. AMS - likely metabolic encephalopathy - being evaluated for sepsis - empirical coverage with Vanco and Zosyn - uremia may have played a role also - for outpatient Vanco with dialysis therapy 6. Foot TMA debridement 08/28 - interview and exam performed with aid of the bedside RN using the telemed media - thanks Attestations Medical Necessity Statement*: Eval and mgmt of ESRD Coding Level of Care Code Acute Dye Range Operator for Rafael Chambers
--- NOTE | 2019-08-31 15:41 | PC.NURSE ---
PATIENTS DAUGHTERS IN [place] AND [place] WERE UPDATED ON PATIENTS CONDITION AND HIS POOR JUDGEMENT IN MAKING HIS HEALTHCARE DECISIONS. THE DAUGHTER FROM [place] SAID SHE WOULD BE HERE IN A COUPLE DAYS AND TRY TO EITHER MAKE SURE HE IS TAKEN CARE OF AND ARRANGES HIS TRANSPORT TO DIALYSIS WITHOUT SKIPPING OR WILL SEND HIM TO A NH OR SNF TO GAIN STRENGTH AND GET HIS ANTIBIOTICS. ALL THE PHYSICIANS HAVE DISCUSSED THE PICCLINE OPTION AND IT WILL NOT BE PLACED. PATIENT OFFERED SHAVING OPTION HIS DAUGHTER SAID HE IS NORMALLY CLEAN SHAVEN. HE APPRECIATED THE CARE. CARMENCITA FROM [place] UPDATED SECOND TIME TODAY. PATIENT DESATS INTO 80'S WHEN ASLEEP AND WILL NOT LEAVE OXYGEN ON . MAY NEED EVALUATION FOR HOME OXYGEN OR SLEEP STUDY. VISIBLE TREMMERS IN ARMS AND HANDS, RESTLESSNESS IMPROVED WITH PAIN MEDS AND LATER TYLENOL . PRETREATING WITH PAIN MEDS FOR DRESSING CHANGE.
[2019-08-31] MEDS: LORazepam 2 mg/mL INJ 1 mL 1 MG IVP (16:36)
--- NOTE | 2019-08-31 17:57 | P.PN_ITS ---
Subjective NPU Subjective: Interval history: Joshua presents today seeming a bit better than yesterday, having some clarity in thought as compared to yesterday, and demonstrating some resolution of his likely delirium. Problematic in the conversation, however, was his lack of insight into why he is in the hospital now, his lack of clarity as to what he needs to do once discharged to maintain his health, given the tremendous amount of treatment that needs to be managed once he leaves. I worked with the nurse on his case, to reach out to the dialysis company that he is using, to have an understanding of his success rate in the community of making his dialysis appointments. He acknowledged in the interview that he has certainly missed days and that days that he missed were by choice. The positive is they were not angry decisions where he decided he did not want to go because he did not want to do it or he did not like it, but he reports that they were decisions that there was something else around the house that needed to be done and on a few circumstances there were funerals, although he acknowledges that his health should supersede a . We discussed this with the primary team, and we are trying to make sure that if we give him a prescription to follow that includes getting IV antibiotics for the next six weeks, that it actually has a high likelihood of occurring. His daughter called and expressed concerns about that and said she would come in and ensure he goes to a shelter. Mental Status Exam MSE Comments: This is a well-nourished, well-developed, white male, with adequate dress and limited grooming, in hospital gown, and improving eye contact. No abnormal movements. More cooperative with exam in no acute distress. Speech was decreased rate and volume. Mood described as okay; affect subdued. Thought process, more organized. Thought content: patient denied any suicidal or homicidal ideation, there were no delusions reported, less paranoid ideations, and he denied any auditory or visual hallucinations. Attention and concentration were improving, and memory continues to be unreliable with him losing the theme of conversations and significant points of emphasis for aftercare moments after the discussion, but none were formally tested. Alert and oriented to person and place. Insight and judgment are limited but improving. Vitals/I&O/Wt Last Vital Signs Temp 99.5 F 09/01/19 04:00 Pulse 95 09/01/19 04:00 Resp 17 09/01/19 04:00 BP 126/70 09/01/19 04:00 Pulse Ox 95 09/01/19 04:00 08/31/19 08/31/19 09/01/19 14:59 22:59 06:59 Intake Total 600 / 600 300 / 900 0 / 900 Output Total 0 / 0 Balance 600 / 600 300 / 900 0 / 900 Weight last 48 hrs Weight 86.863 kg Weight 87.77 kg Data NPU : 09/01/19 04:20 09/01/19 04:20 Micro: Microbiology 08/29/19 11:11 Urine Culture - Final Urine,Voided 08/28/19 12:24 Gram Stain - Final Toe - Left Big Wound Culture - Final Methicillin Resis Staph Aureus Microbiology 08/29/19 11:11 Urine,Voided Urine Culture - Final 08/28/19 12:24 Toe - Left Big Gram Stain - Final 08/28/19 12:24 Toe - Left Big Wound Culture - Final Methicillin Resis Staph Aureus A&P Additional A&P Information This is a 59 year old, white male, with altered mental status likely representing delirium, who presents with an infection in his recent partially amputated foot with need for ongoing treatment and improving desire to comply, but with some continued cognitive limitations. Continue current medication. Clearly him going to a skilled facility represents the best alternative for him to be managed moving forward. That being said, the possibility of a Plan B of him going home and going along with his wishes, is not a possible consideration, but it would be nice if we could verify from his dialysis facility that he is a regular partaker of those services, given that he is acknowledging that in the past year he at least missed ten or more times, needing to find out what is actually going on with that. Additionally, verifying the services that got him to the dialysis program are still operational so that we know that we are wri ting a script that can actually be fulfilled. Possibly family might have some pull in getting him to go with what we all agree would be the best treatment strategy for him. Will follow-up with this case to conclusion. Attestations NPU Medical Necessity Statement*: N/A Please refer to primary team for inpatient medical necessity. As his time in the hospital advances and his condition improves, we will identify whether inpatient psychiatric care is indicated. Coding Level of Care Code Acute Records Coordinator for Rafael Chambers
[2019-08-31] MEDS: trazodone 50 mg Tablet PO (20:30)
[2019-09-01] VITALS (11 sets, daily range): BP systolic 102–156; BP diastolic 54–97; PULSE 88–104; RESP 16–23; TEMP 36.7–37.9; O2SAT 93–96
[2019-09-01] MEDS: piperacillin-tazobactam 3.375 GM in sodium chloride 0.9% (plus) 50 ML IV ×2 (03:17→15:04)
[2019-09-01] MEDS: heparin 5,000 unit/mL INJ 1 mL 5000 UNIT SUBCUT ×2 (03:22→11:29)
[2019-09-01 04:47] LABS: Basophils % 0.4 %; Eosinophils # 0.2 10^3/uL (0.0-0.8); Eosinophils % 3.4 %; Hematocrit 32.7 % (42.0-52.0); Hemoglobin 9.7 g/dL (11.7-16.6); Lymphocytes % 17.4 %; Mean Corpuscular HGB Conc 29.7 g/dL (30.0-36.0); Mean Corpuscular Hemoglobin 32.4 pg (28.0-34.0); Mean Corpuscular Volume 109.4 fL (80-94); Mean Platelet Volume 9.7 fL (7.4-10.4); Monocytes # 0.4 10^3/uL (0.2-0.9); Monocytes % 6.3 %; Neutrophils % 71.2 %; Nucleated Red Blood Cells % 0 %; Platelet Count 258 10^3/cmm (130-400); Red Blood Count 2.99 10^6/uL (4.1-5.3); Red Cell Distribution Width 15.6 % (12.1-15.1); White Blood Count 5.6 10^3/uL (4.0-10.0)
[2019-09-01 05:08] LABS: Alanine Aminotransferase 25 U/L (0-41); Albumin Level 2.6 g/dL (3.5-5.2); Alkaline Phosphatase 365 IU/L (40-130); Anion Gap 23.4 (5-19); Aspartate Amino Transferase 23 U/L (0-40); Blood Urea Nitrogen 54 mg/dL (8-23); Calcium 9.9 mg/dL (8.5-10.5); Carbon Dioxide 23 mmol/L (22-29); Chloride 98 mmol/L (98-107); Globulin 3.3 g/dL (1.3-4.6); Glucose 68 mg/dL (65-115); Osmolality Calculated 285 mOsm/kg (285-295); Potassium 5.4 mmol/L (3.5-5.1); Sodium 139 mmol/L (136-145); Total Bilirubin 0.3 mg/dL (0.15-1.2); Total Protein 5.9 g/dL (6.6-8.7); Vancomycin Random 20.3 ug/mL (20.0-40.0)
--- NOTE | 2019-09-01 06:02 | PC.NURSE ---
Patient awake and alert x3. Oriented to situation and patient verbalizes understanding of current plan of care.
[2019-09-01] MEDS: sodium chloride 0.9% 100 ML (07:22)
[2019-09-01] MEDS: sevelamer 800 mg Tablet PO ×3 (07:24→18:54)
[2019-09-01] MEDS: carvedilol 25 mg Tablet PO ×2 (08:36→18:54)
[2019-09-01] MEDS: allopurinol 100 mg Tablet 150 MG PO (08:36)
[2019-09-01] MEDS: atorvastatin 40 mg Tablet PO (08:36)
[2019-09-01] MEDS: clopidogrel 75 mg Tablet PO (08:36)
[2019-09-01] MEDS: nicotine 21 mg Patch 1 PATCH TRANSDERMA (08:37)
--- NOTE | 2019-09-01 09:36 | P.DS_ITS ---
Discharge Providers Date of Admission: 08/28/19 04:20 Date of Discharge: September 01, 2019 Attending Provider at Admission: Nelson Copeland MD Attending Provider at Discharge: Luciano Martinez MD Consults: Psychiatric: Dr. Rosenbaum Wound consult: Dr. Koch Diagnoses at Discharge Discharge Diagnosis (1) Sepsis: Status: Acute (2) Osteomyelitis: Status: Acute (3) Altered mental status: Status: Acute (4) HCAP (healthcare-associated pneumonia): Status: Acute (5) Pulmonary nodules/lesions, multiple: Status: Acute (6) Critical lower limb ischemia: Status: Acute (7) Hemodialysis patient: Status: Acute Problem details: Hemodialysis 3 days a week (8) Hypertension: Status: Acute (9) Type 2 diabetes mellitus: Status: Acute (10) Cellulitis of left foot: Status: Acute (11) S/P transmetatarsal amputation of foot: Status: Acute Reason for Visit Reason for Visit: Reason For Visit: generalized weakness Hospital Course Discharge Summary: Joshua Baugh is a 59 year old male with a past medical history of end-stage renal disease on dialysis Wednesday, severe peripheral vascular disease, non-reconstructable left leg arterial insufficiency, 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 Koch on June 2019, uncontrolled type 2 diabetes mellitus, hypertension, anxiety, gout who presents to the emergency cory on a 96-hour hold with complaints of altered mental status, fevers. According to 96-hour hold and accounts from ER physicians, since Wednesday patient has been confined to the sofa, has had fever since Wednesday, has not been moving much, has been to having alterations of his mentation, has been weak, fatigued, poor appetite, has been urinating on the couch, has been complaining of left foot pain, there is concerns for worsening gangrene of the left foot, he has been delusional, he has been picking at his left foot, , is very agitated, complaining of pain, has not been able to get off the sofa onto his feet, hehas taken off his clothes, lying naked on the couch, incoherent at times, he will not take oral medications, and that this is completely out of character for him. Patient was admitted to the ICU with one-to-one observation for further work-up of sepsis. His blood cultures remained negative. CT chest was done which showed multiple pleural pulmonary nodularity bilaterally which raised the suspicion of possible metastatic lesion versus septic emboli. CT foot was done which was concerning for osteomyelitis of distal navicular bone. Wound care consult was done and patient underwent wound debridement. Wound cultures were positive for MRSA. Patient was started on broad-spectrum antibiotics since admission and he responded well to the treatment. Patient also underwent emergent dialysis because of possible uremia and hyperkalemia. Both after starting of broad-spectrum antibiotics and dialysis patient's mental status improved. For 96-hour hold patient was seen by psychiatry. Due to severe debilitation and concerns of the family patient was given an option of SNF placement. Patient continues to deny safe placement and said he would want to go home. It was confirmed with the dialysis center that patient had not been missing his dialysis appointments along with his appointments with wound care clinic so he was deemed competent to make his own medical decisions as per psychiatric evaluation. For osteomyelitis with wound growing MRSA patient would require 6 weeks of IV vancomycin which is supposed to be given to him with dialysis session. It was confirmed with the dialysis center if patient could get vancomycin at the center to which dialysis center had refused stating as medication is not related to dialysis they would not be able to do at the dialysis center. For this reason it is important for patient to have a permanent IV access so a PICC line was placed even though it is not optimal given a possible need of graft placement in future for hemodialysis. During hospitalization patient was found to be on multiple antihypertensives to his blood pressure remained on the lower side so his home dose of amlodipine and clonidine was withheld though Coreg was continued. Patient remained hemodynamically stable on this regimen. Patient is been discharged in hemodynamically stable condition after being cleared from psychiatric point of view and finishing of his 96-hour hold to follow-up with wound care clinic weekly and to continue vancomycin for next 6 weeks to be given 1 g postdialysis keeping his Vanco random level levels which are to be drawn once weekly predialysis to be around 20. Back dosing will be done with Dr. Koch. Patient is advised to wear boot on his amputated foot. Patient verbalizes understanding to the treatment plan. For possible septic emboli versus pulmonary metastasis patient is advised to repeat CT chest without contrast in 4 to 6 weeks. Physical Exam Narrative: EXAM NARRATIVE: General: No acute distress, AO x3 HEENT: PERRLA, pupils bilaterally equal and reactive Chest: Normal vesicular breath sounds, no added sounds, equal good air entry bilaterally, dialysis port present in the right hemithorax. CVS: S1-S2 regular, no murmurs, no tachycardia, no gallops, no rubs Abdomen: Soft, nontender, no organomegaly, bowel sounds present Neuro: No focal deficits, no facial deformity, AO x3, power 5/5 in all limbs. Extremities left distal foot amputation. The larger wound is covered with dressing which is dry and clean. The smaller wound without evidence of discharge or bleeding. No significant surrounding hyperemia. Discharge Data Data Completed and Pending: Completed Studies During Hospitalization Category Date Time Status CT chest wo con 7 1250 Urgent Cat Scan 08/28/19 02:[address] foot LT wo con * 22539 Routine Cat Scan 08/29/19 08:[address] head wo con* 7 0450 Urgent Cat Scan 08/28/19 01:31 Completed XR chest 1V luciano ble [id number] Urgent Exams 08/28/19 01:31 Completed XR foot LT 2V 736 20 Stat Exams 08/28/19 03:50 Completed CV echo complete* [id number] Routine Ultrasound 08/29/19 07:00 Completed US renal BI* 7677 0 Routine Ultrasound 08/29/19 07:00 Completed Pending at discharge Category Date Time Status Blood Culture Sta t Lab 08/28/19 01:55 Results Blood Culture Sta t Lab 08/28/19 13:16 Results Sputum Culture an d Gram Stain Stat Lab 08/28/19 05:36 Uncollected Labs from last 24 hours 09/01/19 09/01/19 09/01/19 04:20 04:20 04:20 WBC 5.6 RBC 2.99 L Hgb 9.7 L Hct 32.7 L MCV 109.4 H MCH 32.4 MCHC 29.7 L RDW 15.6 H Plt Count 258 MPV 9.7 Neut % (Auto) 71.2 Lymph % (Auto) 17.4 [place] % (Auto) 6.3 Eos % (Auto) 3.4 Baso % (Auto) 0.4 Neut # (Auto) 4.0 Lymph # (Auto) 1.0 [place] # (Auto) 0.4 Eos # (Auto) 0.2 Baso # (Auto) 0.0 Nucleated RBC % (a uto) 0 Nucleated RBCs # 0.0 Sodium 139 Potassium 5.4 H Chloride 98 Carbon Dioxide 23 Anion Gap 23.4 H BUN 54 H Creatinine 12.9 H* GFR Calculation 4.0 L Glucose 68 Calculated Osmolal ity 285 Calcium 9.9 Total Bilirubin 0.3 AST 23 ALT 25 Alkaline Phosphata se 365 H Total Protein 5.9 L Albumin 2.6 L Globulin 3.3 Random Vancomycin 20.3 Vitals: Last Vital Signs Temp 98.6 F 09/01/19 08:00 Pulse 96 09/01/19 08:00 Resp 21 H 09/01/19 08:00 BP 124/66 09/01/19 08:00 Pulse Ox 94 09/01/19 08:00 Discharge Plan Discharge Patient Disposition: Home Health Service Condition: Stable Prescriptions: New atorvastatin 40 mg Tablet 40 mg PO DAILY Qty: 30 RF: 0 clopidogrel 75 mg Tablet 75 mg PO DAILY Qty: 30 RF: 0 vancomycin in 0.9 % sodium chl 1 gram/200 mL piggyback 1 gm IVP MOWEFR 42 Days Qty: 1200 RF: 0 Continued allopurinol 100 mg tablet 150 mg PO DAILY RF: 0 trazodone 50 mg tablet 50 mg PO .HS RF: 0 sevelamer carbonate [Renvela] 800 mg Tablet 800 mg PO TID RF: 0 carvedilol 25 mg Tablet 25 mg PO BID RF: 0 hydrocodone-acetaminophen 5-325 mg Tablet 0.5 - 1 tab PO Q4H PRN (Reason: Pain) RF: 0 Changed amlodipine 2.5 mg tablet 5 mg PO DAILY Qty: 30 RF: 0 Discontinued losartan 25 mg tablet 25 mg PO DAILY 90 Days Qty: 90 RF: 3 clonidine HCl 0.1 mg Tablet 0.1 mg PO BID RF: 0 prednisone 10 mg Tablet 10 mg PO BID RF: 0 Discharge Orders: Discharge Order (Routine); Ordered 09/01/19 Ordered By: Luciano Martinez Referrals: Nydia Chatman FNP [Family Provider] - 1 week (You have an appointment ith Nydia Chatman in [place] on October 04, at 2:00pm. If you have any quesitons or concerns please call the office. ) Braeden Koch MD [Physician] - 1 week (You have a follow up appointment at [facility] located within [facility]. You will see Dr. Koch on September 06, at 1:30pm. If you have any questions or concerns please call the clinic.) Discharge Diet: As Directed Discharge Activity: Resume usual activity Patient Instructions: Cellulitis, Type 2 Diabetes, Atorvastatin (By mouth), Vancomycin (By mouth), Clopidogrel (By mouth), Cellulitis (DC), Transmetatarsal Amputation (DC), Community-acquired Pneumonia (DC), Altered Mental Status (GEN), Pulmonary Nodules (DC) Activity Restrictions/Additional Instructions: Please continue going to dialysis sessions on Wednesday. Will need vancomycin 1 g after each dialysis session on Wednesday for next 6 weeks for osteomyelitis. Dose to be changed as per Vanco random levels should be checked once a week prior to dialysis session keeping numbers around 20. Vancomycin dosage to be done by Dr. Koch. Please follow-up with wound care clinic as directed. Please repeat CT chest in 1 month. Please check comprehensive metabolic panel once a week while being on antibiotics. Discharge Attestations Time Spent in Discharge Care*: greater than 30 min Specific Discharge Activities: Specific discharge activities: educating patient, discussing with pcp/other providers, discussing with case resolution specialist/social workers/dc planners, documenting/other paperwork and evaluating patient/reviewing data Status at Discharge: Cognitive status at discharge: cognitively intact , Behavioral status at discharge: cooperative , Functional status at discharge: uses cane/walker Overall status at discharge: patient is progressing back to baseline Quality Metrics Clinical Quality Measures During this hospital stay, did patient experience: None Coding Level of Care Code Acute Fish Tender for g Fwd Diagnoses Sepsis A41.9 Osteomyelitis M86.9 Altered mental status R41.82 HCAP (healthcare-associated pneumonia) J18.9 Pulmonary nodules/lesions, multiple R91.8 Critical lower limb ischemia I99.8 Hemodialysis patient Z99.2 Hypertension I10 Type 2 diabetes mellitus E11.9 Cellulitis of left foot L03.116 S/P transmetatarsal amputation of foot Z89.439
--- NOTE | 2019-09-01 10:26 | PM.PN ---
Subjective Subjective: Interval history: Feels ok, no new issues, wants to go home, as mentioned yesterday. no uremic Sx. No edema and no other vol assoc Sx. Medications: Reviewed: Yes Medication Review Details: Generic Name Dose Route Start Last Admin Trade Name Freq PRN Reason Stop Dose Admin Acetaminophen 650 mg 08/29/19 07:42 08/29/19 08:40 Tylenol PO 650 mg Q6H PRN Administration Mild Pain or feve r Hydrocodone Bitart /Acetaminophen 0.5 - 1 tab 08/28/19 09:35 08/28/19 17:41 [place] 5-325 Mg PO 1 tab Q4H PRN Administration Pain Allopurinol 150 mg 08/28/19 09:35 08/29/19 08:39 Zyloprim PO 150 mg DAILY FRANCISCO Administration Amlodipine Besylat e 5 mg 08/28/19 09:35 08/29/19 08:40 Norvasc PO 5 mg BID FRANCISCO Administration Atorvastatin Calci um 40 mg 08/28/19 09:35 08/29/19 08:40 Lipitor PO 40 mg DAILY FRANCISCO Administration Carvedilol 25 mg 08/28/19 09:35 08/29/19 08:41 Coreg PO 25 mg BID FRANCISCO Administration Clonidine HCl 0.1 mg 08/28/19 09:35 08/29/19 08:40 Catapres PO 0.1 mg BID FRANCISCO Administration Clopidogrel Bisulf ate 75 mg 08/29/19 09:00 08/29/19 08:40 Plavix PO 75 mg DAILY FRANCISCO Administration Piperacillin Sod/T azobactam 50 mls @ 12.5 mls /hr 08/29/19 00:15 08/29/19 06:00 Sod 3.375 gm/ So dium Chloride IV Infused Q12H FRANCISCO Infusion Protocol As Directed Sevelamer Carbonat e 800 mg 08/28/19 18:00 08/29/19 08:40 Renvela PO 800 mg TIDWM FRANCISCO Administration Trazodone HCl 50 mg 08/28/19 21:00 08/28/19 19:46 Desyrel PO 50 mg BEDTIME FRANCISCO Administration Vitals/I&O/Wt Last Vital Signs Temp 98.0 F 09/01/19 10:00 Pulse 101 H 09/01/19 10:00 Resp 23 H 09/01/19 10:00 BP 156/97 09/01/19 10:00 Pulse Ox 95 09/01/19 10:00 08/31/19 09/01/19 09/01/19 22:59 06:59 14:59 Intake Total 300 / 900 120 / 1020 150 / 150 Output Total 275 / 275 Balance 300 / 900 -155 / 745 150 / 150 Weight last 48 hrs Weight 86.863 kg Weight 86.863 kg Weight 87.77 kg Physical Exam Narrative: EXAM NARRATIVE: No acute distress. Confused. Disoriented. Responses are adequate. Skin is warm and dry. Dry mucous membranes Neck is supple. No JVD Lungs decreased breath sounds and bibasilar crackles. No respiratory distress at rest. Heart S1, S2, regular Abdomen soft, nontender, bowel sounds are present Extremities left distal foot amputation. The wound seems to be dry without any discharge or bleeding. There is small distal wound on the age covered with dry granulations. There is no surrounding significant edema. Redness is minimal. Area is not tender. No discharge. Const: COMMON NORMALS: no apparent distress and oriented x3 GENERAL APPEARANCE: cooperative, disheveled, lethargic and ill appearing ORIENTATION/CONSCIOUSNESS: Yes awake, Yes oriented to person, Yes confused and Yes lethargic; not oriented to place and not oriented to time HENMT: COMMON NORMALS: normocephalic and external ears normal HEAD & SCALP: normocephalic FACE & SINUS: normal facial exam EXTERNAL EAR: Yes external ears normal TEETH & GINGIVA: no abnormal tooth and associated gingiva Eye: COMMON NORMALS: PERRL, EOMs intact bilaterally, conjunctivae normal and no papilledema GENERAL EYE: normal appearance of both eyes EYELID: eyelids normal CONJUNCTIVA: Yes conjunctivae normal PUPIL: Yes PERRL DIRECT OPHTHALMOSCOPY: Yes no papilledema Neck/C-Spine: COMMON NORMALS: full ROM, no lymphadenopathy, no JVD and thyroid normal GENERAL: No tracheal deviation THYROID: thyroid normal Lymph: LYMPHATIC: no lymphadenopathy noted Chest: COMMONS NORMALS: inspection of chest normal CHEST: No tenderness OTHER: Right chest wall tunneled dialysis catheter site appears to be clean. Resp: COMMON NORMALS: normal respiratory effort, no retractions, no use of accessory muscles and clear to auscultation bilaterally EFFORT & INSPECTION: No tachypneic, No respiratory distress, No retractions, No uses accessory muscles and No tracheal deviation AUSCULTATION: clear to auscultation bilaterally, no rhonchi, no wheezes and lung sounds not diminished Cardio: COMMON NORMALS: no JVD, regular rate, regular rhythm, S1 normal heart sound, S2 normal heart sound, no gallops, no clicks, no murmurs and no rub RATE: regular rate RHYTHM: regular rhythm HEART SOUNDS: S1 normal, S2 normal and no murmurs PERIPHERAL PULSES: radial pulses present GI: COMMON NORMALS: normal to inspection, nondistended, normoactive bowel sounds, soft to palpation, non-tender and no hepatosplenomegaly INSPECTION: No abdominal distension AUSCULTATION: No hypoactive bowel sounds PALPATION: Yes soft, No guarding, No rigid and Yes no hepatosplenomegaly PERCUSSION: no dullness to percussion and no tympanic to percussion Extremity: COMMON NORMALS: normal to inspection, full ROM and no pedal edema NARRATIVE EXTREMITY EXAM: Left lower extremity transmetatarsal amputation, area of gangrene lateral aspect of left foot, slight surrounding erythema, slight tenderness, no visible drainage, Neuro: COMMON NORMALS: oriented x3, CN's II-XII intact bilaterally, moves all extremities and no focal motor deficits SENSORIUM/ORIENTATION: Yes oriented to person, No oriented to place, No oriented to time, Yes lethargic, Yes somnolent and Yes fluctuating sensorium Psych: COMMON NORMALS: mental status grossly normal, thought process normal, cooperative and speech normal ATTITUDE: Yes agitated ACTIVITY/MOTOR BEHAVIOR: Yes fidgeting SPEECH: Yes normal speech MOOD & AFFECT: Yes flat affect THOUGHT PROCESS: normal thought process and circumstantial THOUGHT CONTENT: Yes delusion(s) INSIGHT: limited Skin: COMMON NORMALS: no rashes or lesions noted GENERAL SKIN EXAM: no rashes or lesions noted Data : 09/01/19 04:20 09/01/19 04:20 Micro: Microbiology 08/29/19 11:11 Urine Culture - Final Urine,Voided 08/28/19 12:24 Gram Stain - Final Toe - Left Big Wound Culture - Final Methicillin Resis Staph Aureus A&P Additional A&P Information 1. ESRD - next dialysis planned for today - 2K, UF 2-3L - am labs - dose meds for eGFR < 15 on dialysis 2. Lytes look good 3. 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 Hyperphos; cont outpatient meds; will encourage diet and binder compliance 5. AMS - likely metabolic encephalopathy - being evaluated for sepsis - empirical coverage with Vanco and Zosyn - uremia may have played a role also - for outpatient Vanco with dialysis therapy 6. Foot TMA debridement 08/28 - interview and exam performed with aid of the bedside RN using the telemed media - for discharge later today Attestations Medical Necessity Statement*: eval for ESRD mgmt Coding Level of Care Code Acute Cable Puller for Rafael Chambers
--- NOTE | 2019-09-01 13:05 | XR_ITS ---
WS: [id number] CHEST XRAY TECHNIQUE: Portable chest. CLINICAL INFORMATION: Post PICC placement COMPARISON: None. FINDINGS: Left PICC line with tip in the proximal SVC. Right central venous catheter tip in right atr ium. Heart: Cardiomegaly. Lungs: No pneumothorax. Shallow inspiration. Subsegmental atelectasis in the lung bases. Bones: Normal visualized bony structures. XR/XR chest 1V portable [id number] IMPRESSION: 1. Left PICC line with tip in the proximal SVC. No pneumothorax. 2. Cardiomegaly with subsegmental atelectasis in the lung bases.
--- NOTE | 2019-09-01 18:07 | PC.PHAR ---
Lorazepam inj returned to pharmacy: Dose pulled for dialysis unused. Integrated waste requred full waste of unopened vial. Completed waste at [facility] by KIM, Returned to pharmacy via pharmacist JEB
[2019-09-01] MEDS: vancomycin 1,000 MG in sodium chloride 0.9% 250 ML 250 MG IV (18:54)
[2019-09-01] MEDS: heparin, porcine 1,000 unit/mL INJ 10 mL 20000 UNIT HE (18:54)
--- NOTE | 2019-09-01 18:57 | PC.NURSE ---
7a-7p Summary: Pt is AAOX3, pleasant and cooperative with staff and care. PICC line placed today to THOMAS. Pt received HD and is finishing at this time. No complaints of pain voiced this shift. Pt positioned PRN for comfort. Pt has not ate well this shift, but has eaten something at each meal. IV to LFA removed with cath intact. Discharge packet has been printed and given to CIARA Wright. Pt to be discharged this evening after receiving vancomycin, dressing change to be completed, prior to discharge.
--- NOTE | 2019-09-01 19:24 | PC.NURSE ---
bedside report rcvd at this time. pt currently receiving dialysis . pt agitated and wanting discharged ariel. i explained to him that he needs a drsg change and an abx infusion prior to dc. phone call from pt . update provided. phone callf from pt daughter . update provided phone call from pt mother . update provided. hema moy rn.
--- NOTE | 2019-09-01 19:51 | PC.NURSE ---
drsg change to left foot. small medial open area c min serosang drainge noted. approx 2 cm open area on lateral aspect of incision c min drainage . wounds cleaned c ns , covered c ns soaked 2x2 covered c drsg drsg and secured. pt tolerated c min co pain. pt refuses to wear his clothes home , requests gown for ride home despite encouragement to get dressed. vss per cm. waiting for vanc to complete so pt can be discharged. nidia.
== END 2019-09-01 20:35 | disposition home health service (06) | DRG 871 ==
LOC: ER 02:05 → ICU 05:03
PROVIDERS: Internal Medicine; Admitting Provider Family Medicine; Emergency Provider Emergency Medicine; Family Provider Nurse Practitioner Primary Care; Visit Provider Student in an Organized Health Care Education/Training Program
DX: A41.9 Sepsis, unspecified organism (principal); J18.9 Pneumonia, unspecified organism; G93.41 Metabolic encephalopathy; N18.6 End stage renal disease; N39.0 Urinary tract infection, site not specified; L03.115 Cellulitis of right lower limb; M86.8X9 Other osteomyelitis, unspecified sites; Z99.2 Dependence on renal dialysis; E11.22 Type 2 diabetes mellitus with diabetic chronic kidney disease; E11.51 Type 2 diabetes mellitus with diabetic peripheral angiopathy without gangrene; I70.202 Unspecified atherosclerosis of native arteries of extremities, left leg; Y95 Nosocomial condition; R91.8 Other nonspecific abnormal finding of lung field; F41.9 Anxiety disorder, unspecified; Z89.422 Acquired absence of other left toe(s); I12.9 Hypertensive chronic kidney disease with stage 1 through stage 4 chronic kidney disease, or unspecified chronic kidney disease; B95.62 Methicillin resistant Staphylococcus aureus infection as the cause of diseases classified elsewhere; Z87.891 Personal history of nicotine dependence; M19.90 Unspecified osteoarthritis, unspecified site
CPT/HCPCS: 12345; 36415; 36416; 36569; 36600; 70450; 71045; 71250; 73620; 73700; 76770; 80053; 80202; 80307; 81001; 82550; 82803; 82962; 83036; 83605; 83735; 84100; 84145; 84443; 85025; 85651; 86140; 86403; 87040; 87070; 87077; 87086; 87186; 87205; 87635; 87641; 87804; 90935; 93306; 96372; 96374; 96375; 99284; J1630; J1644; J1956; J2060; J2250; J2270; J2405; J2543; J3370; J7040; J7050; Q3014

== ENCOUNTER 2019-09-04 20:01 | Outpatient (CLI) | payer MEDICARE, MEDICAID, SELFPAY ==
[2019-09-04 20:25] LABS: Vancomycin Trough 22.2 ug/mL (10-15)
== END 2019-09-04 20:02 | disposition home or self-care (01) ==
PROVIDERS: Family Provider Nurse Practitioner Primary Care; Visit Provider Surgery
DX: J18.9 Pneumonia, unspecified organism (principal)
CPT/HCPCS: 80202

== ENCOUNTER 2019-09-05 08:51 | Day surgery (SDC) | payer MEDICARE, MEDICAID, SELFPAY | END 2019-09-05 09:04 | LOC: ER 09:03 → OPS 09:05 | PROVIDERS: Family Provider Nurse Practitioner Primary Care; Visit Provider Emergency Medicine | DX: J18.9 Pneumonia, unspecified organism (principal) | CPT/HCPCS: 99281 ==

== ENCOUNTER 2019-09-05 09:07 | Outpatient (RCR) | payer MEDICARE, MEDICAID, SELFPAY ==
--- NOTE | 2019-09-05 09:17 | PC.NURSE ---
0920- PT PRESENTS TO OPS FOR EVALUATION OF LEFT PICC LINE FOLLOWING HOME HEALTH REPORT OF DIFFICULTY FLUSHING. UPON EVALUATION OF LEFT PICC LINE SITE IS CLEAN DRY AND INTACT WITH DRESSING PRESENT. I AM ABLE TO GET POSITIVE BLOOD RETURN FROM EACH LUMEN AND EACH FLUSH WITHOUT DIFFICULTY. PATIENT DENIES ANY DISCOMFORT WITH FLUSH. WOUND CARE NOTIFIED OF FUNCTIONING PICC LINE.
== END 2019-09-07 23:59 | disposition home or self-care (01) ==
LOC: WOUND 09:07
PROVIDERS: Family Provider Nurse Practitioner Primary Care; PCP Internal Medicine Cardiovascular Disease; Visit Provider Thoracic Surgery (Cardiothoracic Vascular Surgery)
DX: T81.31XA Disruption of external operation (surgical) wound, not elsewhere classified, initial encounter (principal); Y83.8 Other surgical procedures as the cause of abnormal reaction of the patient, or of later complication, without mention of misadventure at the time of the procedure; Z89.422 Acquired absence of other left toe(s)
CPT/HCPCS: 11042; L4387

== ENCOUNTER 2019-09-11 18:11 | Outpatient (CLI) | payer MEDICARE, MEDICAID, SELFPAY ==
[2019-09-12 02:05] LABS: Vancomycin Random 23.9 ug/mL (20.0-40.0)
== END 2019-09-11 18:12 | disposition home or self-care (01) ==
LOC: LAB 18:14
PROVIDERS: Family Provider Nurse Practitioner Primary Care; PCP Internal Medicine Cardiovascular Disease; Visit Provider Thoracic Surgery (Cardiothoracic Vascular Surgery)
DX: Z48.812 Encounter for surgical aftercare following surgery on the circulatory system (principal)
CPT/HCPCS: 80202

== ENCOUNTER 2019-09-12 07:54 | Outpatient (CLI) | payer MEDICARE, MEDICAID, SELFPAY | END 2019-09-12 07:55 | disposition home or self-care (01) | LOC: WOUND 07:58 | PROVIDERS: Family Provider Nurse Practitioner Primary Care; PCP Internal Medicine Cardiovascular Disease; Visit Provider Thoracic Surgery (Cardiothoracic Vascular Surgery) | DX: T81.31XA Disruption of external operation (surgical) wound, not elsewhere classified, initial encounter (principal); Y83.8 Other surgical procedures as the cause of abnormal reaction of the patient, or of later complication, without mention of misadventure at the time of the procedure; Z89.422 Acquired absence of other left toe(s) | CPT/HCPCS: 11042 ==

== ENCOUNTER 2019-09-18 20:12 | Outpatient (CLI) | payer MEDICARE, MEDICAID, SELFPAY ==
[2019-09-19 01:52] LABS: Vancomycin Trough 15.4 ug/mL (10-15)
== END 2019-09-18 20:13 | disposition home or self-care (01) ==
PROVIDERS: Student in an Organized Health Care Education/Training Program; Family Provider Nurse Practitioner Primary Care; PCP Internal Medicine Cardiovascular Disease; Visit Provider Thoracic Surgery (Cardiothoracic Vascular Surgery)
DX: A41.9 Sepsis, unspecified organism (principal); M86.9 Osteomyelitis, unspecified
CPT/HCPCS: 80202

== ENCOUNTER 2019-09-19 07:47 | Outpatient (CLI) | payer MEDICARE, MEDICAID, SELFPAY | END 2019-09-19 07:48 | disposition home or self-care (01) | LOC: WOUND 07:49 | PROVIDERS: Family Provider Nurse Practitioner Primary Care; PCP Internal Medicine Cardiovascular Disease; Visit Provider Thoracic Surgery (Cardiothoracic Vascular Surgery) | DX: T81.31XA Disruption of external operation (surgical) wound, not elsewhere classified, initial encounter (principal); Y83.8 Other surgical procedures as the cause of abnormal reaction of the patient, or of later complication, without mention of misadventure at the time of the procedure; Z89.422 Acquired absence of other left toe(s) | CPT/HCPCS: 11042 ==

== ENCOUNTER 2019-09-25 20:51 | Outpatient (CLI) | payer MEDICARE, MEDICAID, SELFPAY ==
[2019-09-26 08:31] LABS: Vancomycin Trough 26.3 ug/mL (10-15)
== END 2019-09-25 20:52 | disposition home or self-care (01) ==
LOC: OPOB 20:54
PROVIDERS: PCP Internal Medicine Cardiovascular Disease; Visit Provider Thoracic Surgery (Cardiothoracic Vascular Surgery)
DX: M86.9 Osteomyelitis, unspecified (principal)
CPT/HCPCS: 80202

== ENCOUNTER 2019-09-26 07:52 | Outpatient (CLI) | payer MEDICARE, MEDICAID, SELFPAY | END 2019-09-26 07:53 | disposition home or self-care (01) | LOC: WOUND 07:53 | PROVIDERS: PCP Internal Medicine Cardiovascular Disease; Visit Provider Thoracic Surgery (Cardiothoracic Vascular Surgery) | DX: T81.31XA Disruption of external operation (surgical) wound, not elsewhere classified, initial encounter (principal); Y83.8 Other surgical procedures as the cause of abnormal reaction of the patient, or of later complication, without mention of misadventure at the time of the procedure; Z89.422 Acquired absence of other left toe(s) | CPT/HCPCS: 11042 ==

== ENCOUNTER 2019-10-02 16:14 | Outpatient (CLI) | payer MEDICARE, MEDICAID, SELFPAY ==
[2019-10-02 17:28] LABS: Vancomycin Trough 28.7 ug/mL (10-15)
== END 2019-10-02 16:15 | disposition home or self-care (01) ==
PROVIDERS: PCP Internal Medicine Cardiovascular Disease; Visit Provider Thoracic Surgery (Cardiothoracic Vascular Surgery)
DX: E11.9 Type 2 diabetes mellitus without complications (principal)
CPT/HCPCS: 80202

== ENCOUNTER 2019-10-03 07:46 | Outpatient (CLI) | payer MEDICARE, MEDICAID, SELFPAY | END 2019-10-03 07:47 | disposition home or self-care (01) | LOC: WOUND 07:50 | PROVIDERS: PCP Internal Medicine Cardiovascular Disease; Visit Provider Thoracic Surgery (Cardiothoracic Vascular Surgery) | DX: T81.89XA Other complications of procedures, not elsewhere classified, initial encounter (principal); Y83.8 Other surgical procedures as the cause of abnormal reaction of the patient, or of later complication, without mention of misadventure at the time of the procedure | CPT/HCPCS: 11042 ==

== ENCOUNTER 2019-10-09 15:25 | Outpatient (CLI) ==
[2019-10-09 15:56] LABS: Vancomycin Trough 11.5 ug/mL (10-15)
== END 2019-10-09 15:26 | disposition home or self-care (01) ==
PROVIDERS: Thoracic Surgery (Cardiothoracic Vascular Surgery)
DX: M86.9 Osteomyelitis, unspecified (principal)
CPT/HCPCS: 80202

== ENCOUNTER 2019-10-10 07:59 | Outpatient (CLI) | payer MEDICARE, MEDICAID, SELFPAY | END 2019-10-10 08:00 | disposition home or self-care (01) | LOC: WOUND 08:00 | PROVIDERS: PCP Internal Medicine Cardiovascular Disease; Visit Provider Thoracic Surgery (Cardiothoracic Vascular Surgery) | DX: T81.89XA Other complications of procedures, not elsewhere classified, initial encounter (principal); Y83.8 Other surgical procedures as the cause of abnormal reaction of the patient, or of later complication, without mention of misadventure at the time of the procedure; Z89.422 Acquired absence of other left toe(s) | CPT/HCPCS: 11042 ==

== ENCOUNTER 2019-10-16 20:02 | Inpatient (IN) | payer MEDICARE, MEDICAID, SELFPAY ==
--- NOTE | 2019-10-16 20:09 | PC.NURSE ---
Patient was brought in by EMS. EMS states that family called because the patient has been having more confusion. Patient is uncooperative upon arrival in the ED.
[2019-10-16 20:10] VITALS: BP 150/83; PULSE 104; RESP 18; TEMP 37.5; O2SAT 90; BMI 24.3
--- NOTE | 2019-10-16 20:15 | XR_ITS ---
WS: [id number] LEFT FOOT: 3 VIEW(S) TECHNIQUE: AP, oblique and lateral. HISTORY: fever COMPARISON: 08/28/2019 Marked abnormality involving the foot. There is amputation at the midfoot. There is bone destruction and fragmentation along the amputation site. Soft tissue edema and severe peripheral arterial disease . Progression of bone loss along the amputation line involving the residual tarsal bones. Severe oste openia. XR/XR foot LT min 3V* [id number] IMPRESSION: 1. Amputation along the midfoot with progression augmentation and loss of the normal bone since 08/28/2019. Suspicious for ongoing osteomyelitis at several of the residual tarsal bones. 2. Soft tissue edema with ulceration is along the amputation site and severe p eripheral arterial disease.
--- NOTE | 2019-10-16 20:15 | XR_ITS ---
WS: [id number] PORTABLE CHEST HISTORY: fever COMPARISON: 09/01/2019 Dialysis catheter with tips in the distal SVC. The entire RIGHT lung is not included. Visualized lungs are clear. No pleural effusion or pneumothorax. Cardiac size: Mildly enlarged cardiac silhouette. Mediastinum/Aorta: Mild atherosclerosis aorta. No osseous abnormality seen. XR/XR chest 1V portable [id number] IMPRESSION: Limited evaluation as the entire chest has not been included. No acute abnormal ity.
--- NOTE | 2019-10-16 20:15 | CTR_ITS ---
PROCEDURE INFORMATION: Exam: CT Head Without Contrast Exam date and time: 10/16/2019 8:19 PM Age: 59 years old Clinical indication: Altered mental status/memory loss; Confusion or disorientation; Additional info: AMS TECHNIQUE: Imaging protocol: Computed tomography of the head without contrast. Radiation optimization: All CT scans at this facility use at least one of these dose optimization techniques: automated exposure control; mA and/or kV adjustment per patient size (includes targeted exams where dose is matched to clinical indication); or iterative reconstruction. COMPARISON: CT head wo con* [id number] 08/28/2019 3:04 AM FINDINGS: There is mild low density in the bilateral periventricular white matter which may represent chronic small vessel ischemic disease in the appropriate clinical setting. There is mildly prominent cisterna magna versus small arachnoid cyst in the midline posterior fossa. There are prominent intracranial and extracranial arterial calcifications. There is mild cerebral cortical volume loss. Ventricles do not appear significantly dilated. No depressed calvarial fracture is demonstrated. Visualized paranasal sinuses and mastoid air cells demonstrate no significant opacification. 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 There is aeration of the left anterior clinoid process and the optic nerve traverses this region. CT/CT head wo con* [id number] IMPRESSION: Probable chronic ischemic changes as discussed above. Other findings as discussed above. Total DLP: 601.8 mGy-cm Radiation Dose CTDIVOL = (mGy): DLP = 601.8 (mGy-cm)
--- NOTE | 2019-10-16 20:16 | ECG_ITS ---
Measurements Intervals Heber Rate: 115 P: 54 WA: 108 QRS: 46 QRSD: 76 T: 81 QT: 311 QTc: 430 SINUS TACHYCARDIA WITH SHORT WA INTERVAL POSSIBLE LEFT ATRIAL ENLARGEMENT [-0.1mV P WAVE IN V1/V2] LEFT VENTRICULAR HYPERTROPHY AND ST-T CHANGE [VOLTAGE CRITERIA PLUS ST/T AB ABNORMALITY] Compared to ECG 06/03/2019 20:51:37 Short WA interval now present Left ventricular hypertrophy now present ST (T wave) deviation now present T-wave abnormality no longer present Electronically Signed On 10-17-2019 19:33:44 CDT by Rubens Quintanilla M.D. [email or web address]
--- NOTE | 2019-10-16 20:18 | ED_ITS ---
HPI - Altered Mental Status General: Chief Complaint: Altered Mental Status Stated Complaint: CONFUSION Time Seen by Provider: 10/16/19 20:05 Source: patient and EMS Mode of arrival: EMS Limitations: altered mental status History of Present Illness: HPI narrative: Joshua is a 59-year-old male with a history of osteomyelitis to his left foot along with end-stage renal disease and is on dialysis Wednesday. Patient's home health checked him today and he had a low-grade fever of 99 5 and had altered mental status. Patient here is very agitated and aggressive. He is able to tell me his name and his age but is uncooperative and will not try to tell me the year and just says leave him alone. Patient does appear to have some confusion. He is currently on IV vancomycin for his osteomyelitis. MD complaint: altered mental status Review of Systems General: Reports: ROS unobtainable due to mental status Const: Reports: fever(s) PFSH ED PFSH: Medical History Arthritis Chronic kidney disease (CKD) Critical lower limb ischemia Diabetes Uncontrolled Hemodialysis patient Hemodialysis 3 days a week Hypertension Non-healing ulcer Left Toe Peripheral vascular disease Surgical History History of colostomy History of partial colectomy History of prostate surgery Status post transmetatarsal amputation of left foot Severe, non-reconstructable peripheral vascular disease with gangrenous changes left forefoot Family History Sister Cancer Social History (Updated 10/17/19 @ 00:48 by Hiwot Kulkarni MD) Smoking and tobacco status: former smoker Quit status (tobacco): has quit using tobacco Physical Exam Const: COMMON NORMALS: negative for patient oriented x3 EXAM LIMITATIONS: altered mental status GENERAL APPEARANCE: disheveled ORIENTATION/CONSCIOUSNESS: Yes oriented to person and Yes confused HENMT: COMMON NORMALS: normocephalic and atraumatic HEAD & SCALP: normocephalic and atraumatic Eye: COMMON NORMALS: Equal, round and reactive pupils present and EOMs intact bilaterally PUPIL: Yes Equal, round and reactive pupils present Neck/C-Spine: COMMON NORMALS: full ROM and supple Chest: COMMONS NORMALS: normal inspection of the chest and normal palpation of entire chest wall Resp: COMMON NORMALS: normal respiratory effort, No retractions, No use of accessory muscles and clear to auscultation bilaterally AUSCULTATION: clear to auscultation bilaterally Cardio: COMMON NORMALS: regular rate, regular rhythm and No murmurs present (Cardio) RATE: regular rate RHYTHM: regular rhythm GI: COMMON NORMALS: Normal to inspection, nondistended, normoactive bowel sounds present, Soft to palpation, non-tender and no masses PALPATION: Yes Soft to palpation Extremity: COMMON NORMALS: normal to inspection and full ROM NARRATIVE EXTREMITY EXAM: Partial amputation to left foot with no warmth or redness at this time Neuro: COMMON NORMALS: moves all extremities and no focal motor deficits; negative for patient oriented x3 SENSORIUM/ORIENTATION: Yes oriented to person Psych: COMMON NORMALS: mental status grossly normal, Normal thought process present and cooperative THOUGHT PROCESS: Normal thought process present Skin: COMMON NORMALS: no rashes or lesions noted and no wounds GENERAL SKIN EXAM: no rashes or lesions noted Course Vital Signs: Vital signs: Vital Signs Temperature 101.7 F H 10/17/19 00:12 Pulse Rate 118 H 10/17/19 01:07 Respiratory Rate 18 10/17/19 01:07 Blood Pressure 139/86 10/17/19 01:07 Pulse Oximetry 97 10/17/19 01:07 MDM - Altered Mental Status MDM Narrative: Medical decision making narrative: Joshua presents here with fever and has a history of pneumonia the past along with osteomyelitis. Unknown source at this time. Patient's white count is normal and his blood pressures have been normal here. Patient is very abrasive and hard to get much of a history from him. Talking to he is at his baseline mentally. He has no signs of meningitis. I spoke to hospitalist and will admit at this time. Lab Data: Labs: Lab Results 10/16/19 10/16/19 10/16/19 Range/Units 20:25 20:25 20:25 WBC 12.5 H (4.0-10.0) 10^3/ uL RBC 3.70 L (4.1-5.3) 10^6/u L Hgb 12.1 (11.7-16.6) g/dL Hct 38.7 L (42.0-52.0) % MCV 104.6 H (80-94) fL MCH 32.7 (28.0-34.0) pg MCHC 31.3 (30.0-36.0) g/dL RDW 15.0 (12.1-15.1) % Plt Count 170 (130-400) 10^3/c mm MPV 9.3 (7.4-10.4) fL Neut % (Auto) 75.3 % Lymph % (Auto) 14.4 % Mcnairy % (Auto) 5.7 % Eos % (Auto) 1.7 % Baso % (Auto) 0.3 % Neut # (Auto) 9.4 H (1.8-7.7) 10^3/u L Lymph # (Auto) 1.8 (0.8-4.8) 10^3/u L Mcnairy # (Auto) 0.7 (0.2-0.9) 10^3/u L Eos # (Auto) 0.2 (0.0-0.8) 10^3/u L Baso # (Auto) 0.0 (0.0-0.1) 10^3/u L Nucleated RBC % (a uto) 0.2 % Nucleated RBCs # 0.0 /100WBC Sodium 136 (136-145) mmol/L Potassium 4.1 (3.5-5.1) mmol/L Chloride 93 L (98-107) mmol/L Carbon Dioxide 30 H (22-29) mmol/L Anion Gap 17.1 (5-19) BUN 23 (8-23) mg/dL Creatinine 6.8 H* (0.7-1.2) mg/dL GFR Calculation 8.3 L (90-130) mL/min Glucose 80 (65-115) mg/dL POC Glucose (70-110) mg/dL Calculated Osmolal ity 278 L (285-295) mOsm/k g Lactate 1.0 (0.5-2.2) mmol/L Calcium 9.2 (8.5-10.5) mg/dL Total Bilirubin 0.6 (0.15-1.2) mg/dL AST 17 (0-40) U/L ALT 21 (0-41) U/L Alkaline Phosphata se 92 (40-130) IU/L Total Protein 6.4 L (6.6-8.7) g/dL Albumin 4.0 (3.5-5.2) g/dL Globulin 2.4 (1.3-4.6) g/dL Ethyl Alcohol < 10 (0-10) mg/dL 10/16/19 Range/Units 20:38 WBC (4.0-10.0) 10^3/ uL RBC (4.1-5.3) 10^6/u L Hgb (11.7-16.6) g/dL Hct (42.0-52.0) % MCV (80-94) fL MCH (28.0-34.0) pg MCHC (30.0-36.0) g/dL RDW (12.1-15.1) % Plt Count (130-400) 10^3/c mm MPV (7.4-10.4) fL Neut % (Auto) % Lymph % (Auto) % Mcnairy % (Auto) % Eos % (Auto) % Baso % (Auto) % Neut # (Auto) (1.8-7.7) 10^3/u L Lymph # (Auto) (0.8-4.8) 10^3/u L Mcnairy # (Auto) (0.2-0.9) 10^3/u L Eos # (Auto) (0.0-0.8) 10^3/u L Baso # (Auto) (0.0-0.1) 10^3/u L Nucleated RBC % (a uto) % Nucleated RBCs # /100WBC Sodium (136-145) mmol/L Potassium (3.5-5.1) mmol/L Chloride (98-107) mmol/L Carbon Dioxide (22-29) mmol/L Anion Gap (5-19) BUN (8-23) mg/dL Creatinine (0.7-1.2) mg/dL GFR Calculation (90-130) mL/min Glucose (65-115) mg/dL POC Glucose 80 (70-110) mg/dL Calculated Osmolal ity (285-295) mOsm/k g Lactate (0.5-2.2) mmol/L Calcium (8.5-10.5) mg/dL Total Bilirubin (0.15-1.2) mg/dL AST (0-40) U/L ALT (0-41) U/L Alkaline Phosphata se (40-130) IU/L Total Protein (6.6-8.7) g/dL Albumin (3.5-5.2) g/dL Globulin (1.3-4.6) g/dL Ethyl Alcohol (0-10) mg/dL Imaging Data^: CT Head: Radiologist's impression: [address] [address] [address] Scan Report Signed Patient: Joshua Baugh Unit #: [id number] : 1960 Age/Sex: 59 / M ADM Date: 10/16/19 Loc: ER Room/Bed: Attending Dr: Ordering Provider/Ordering MD: Nehemiah Correia MD Date of Service: 10/16/19 Procedure(s): CT head wo con* [id number] Accession Number(s): [id number] Report Number: [id number] PROCEDURE INFORMATION: Exam: CT Head Without Contrast Exam date and time: 10/16/2019 8:19 PM Age: 59 years old Clinical indication: Altered mental status/memory loss; Confusion or disorientation; Additional info: AMS TECHNIQUE: Imaging protocol: Computed tomography of the head without contrast. Radiation optimization: All CT scans at this facility use at least one of these dose optimization techniques: automated exposure control; mA and/or kV adjustment per patient size (includes targeted exams where dose is matched to clinical indication); or iterative reconstruction. COMPARISON: CT head wo con* [id number] 08/28/2019 3:04 AM FINDINGS: There is mild low density in the bilateral periventricular white matter which may represent chronic small vessel ischemic disease in the appropriate clinical setting. There is mildly prominent cisterna magna versus small arachnoid cyst in the midline posterior fossa. There are prominent intracranial and extracranial arterial calcifications. There is mild cerebral cortical volume loss. Ventricles do not appear significantly dilated. No depressed calvarial fracture is demonstrated. Visualized paranasal sinuses and mastoid air cells demonstrate no significant opacification. 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 There is aeration of the left anterior clinoid process and the optic nerve traverses this region. CT/CT head wo con* [id number] IMPRESSION: Probable chronic ischemic changes as discussed above. Other findings as discussed above. 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
--- NOTE | 2019-10-16 20:31 | PC.NURSE ---
patient will not answer questions for nurse, patient uncooperative with care
[2019-10-16 20:37] LABS: Basophils % 0.3 %; Eosinophils # 0.2 10^3/uL (0.0-0.8); Eosinophils % 1.7 %; Hematocrit 38.7 % (42.0-52.0); Hemoglobin 12.1 g/dL (11.7-16.6); Lymphocytes # 1.8 10^3/uL (0.8-4.8); Lymphocytes % 14.4 %; Mean Corpuscular HGB Conc 31.3 g/dL (30.0-36.0); Mean Corpuscular Hemoglobin 32.7 pg (28.0-34.0); Mean Corpuscular Volume 104.6 fL (80-94); Mean Platelet Volume 9.3 fL (7.4-10.4); Monocytes # 0.7 10^3/uL (0.2-0.9); Monocytes % 5.7 %; Neutrophils # 9.4 10^3/uL (1.8-7.7); Neutrophils % 75.3 %; Nucleated Red Blood Cells % 0.2 %; Platelet Count 170 10^3/cmm (130-400); White Blood Count 12.5 10^3/uL (4.0-10.0)
[2019-10-16] MEDS: sodium chloride 0.9% 500 ML IV (20:41)
[2019-10-16 20:43] VITALS: BP 160/118; PULSE 114; RESP 16; O2SAT 94
[2019-10-16] MEDS: LORazepam 2 mg/mL INJ 1 mL 1 MG IVP (20:50)
[2019-10-16 20:51] LABS: Glucose Point of Care 80 mg/dL (70-110)
[2019-10-16 20:55] LABS: Alanine Aminotransferase 21 U/L (0-41); Alkaline Phosphatase 92 IU/L (40-130); Anion Gap 17.1 (5-19); Aspartate Amino Transferase 17 U/L (0-40); Blood Urea Nitrogen 23 mg/dL (8-23); Calcium 9.2 mg/dL (8.5-10.5); Carbon Dioxide 30 mmol/L (22-29); Chloride 93 mmol/L (98-107); Globulin 2.4 g/dL (1.3-4.6); Glomerular Filtration Rate 8.3 mL/min (90-130); Glucose 80 mg/dL (65-115); Osmolality Calculated 278 mOsm/kg (285-295); Potassium 4.1 mmol/L (3.5-5.1); Sodium 136 mmol/L (136-145); Total Bilirubin 0.6 mg/dL (0.15-1.2); Total Protein 6.4 g/dL (6.6-8.7)
[2019-10-16 21:22] LABS: Alcohol Level < 10 mg/dL (0-10)
[2019-10-16 22:30] VITALS: BP 156/101; PULSE 101; RESP 18; O2SAT 95
[2019-10-16 23:22] VITALS: BP 132/86; PULSE 105; RESP 18; O2SAT 92
[2019-10-17] VITALS (8 sets, daily range): BP systolic 112–153; BP diastolic 65–87; PULSE 84–118; RESP 16–22; TEMP 36.6–38.7; O2SAT 91–97
--- NOTE | 2019-10-17 00:19 | PC.NURSE ---
Addendum entered by Sammie Ramsey RN 10/17/19 00:19: patient refused cardiac monitoring from nurse at 2030 Original Note: patient refused cardiac monitoring from nurse.
[2019-10-17] MEDS: vancomycin 1,000 MG in sodium chloride 0.9% 250 ML 250 MG IV (00:33)
--- NOTE | 2019-10-17 00:47 | P.HP_ITS ---
Providers/Chief Complaint Primary Care Provider: Hiwot Herrera MD Chief Complaint: CONFUSION History of Present Illness Joshua Baugh is a 59 year old male who has significant past medical history of end-stage renal disease Wednesday hemodialysis dependent, severe peripheral vascular disease, left forefoot gangrene failed angioplasty status post transmetatarsal amputation by Dr. Koch in 06/29, coming in today for chief complaint of fever. In August he had wound debridement and was discharged on 6 weeks course of vancomycin for osteomyelitis of left distal navicular bone, wound culture positive for MRSA 08/27. He is currently on home health because he refused senior living placement on his last visit, patient's home health services checked on him today and noticed fever of 99.5, patient was very aggressive and agitated hence was sent to the ER for further evaluation. Patient is not a reliable historian. I have to ask questions 3-4 times to get an answer, he is oriented to time place and person, he is just very agitated and is cursing the staff. After trying multiple times he was able to tell me that he gets dialyzed on Wednesday, he makes small amount of urine, he has not experienced any chills, chest pain, diarrhea, dysuria. When I asked him about his diet he stated I eat food. He is keeping his eyes closed and not really cooperative for the interview. Diagnostics in the ER revealed sepsis with fever, tachycardia and leukocytosis, he has been given 1 g of vancomycin in the ER His previous vancomycin trough level was 11.5 on 10/08 Ethyl alcohol level less than 10 His rectal temperature was 101.7F Chest x-ray showing chronic changes with bilateral nodules Head CT is also showing chronic changes Foot x-ray concerning for osteomyelitis No active purulence or drainage around his amputated site No signs of meningitis, he is alert oriented x3 On previous admission he was tested for COVID which was negative, that was done in-lieu of bilateral nodule seen on the x-ray, and presentation with fever Review of Systems Const: Reports: chills and body aches; Denies: fever(s) Eyes: Denies: change in vision ENMT: Denies: throat pain Card: Denies: chest pain Resp: Reports: non-productive cough; Denies: dyspnea GI: Denies: abdominal pain, nausea or vomiting : Denies: flank pain, difficulty urinating or urinary urgency Musc: Denies: neck pain or back pain Skin/Breast: Reports: lesions Neuro: Denies: headache(s) Psych: Reports: anxiety, irritability and difficulty concentrating Endo: Denies: polyuria Christophe/Lymph: Denies: easy bruising All/Imm: Denies: urticaria Medications/Allergies Home Medications Medication Instructions Recorded Confirmed Last Taken Type carvedilol 25 mg PO BID 05/12/19 10/16/19 06/14/19 02:30 History hydrocodone-acetaminophen 0.5 - 1 tab PO Q4H PRN 05/12/19 10/16/19 1 Day Ago History ~06/13/19 sevelamer carbonate [Renvela] 800 mg PO TID 05/12/19 10/16/19 1 Day Ago History ~06/13/19 allopurinol 100 mg tablet 150 mg PO DAILY tab 08/17/19 10/16/19 Unknown History trazodone 50 mg tablet 50 mg PO .HS tab 08/17/19 10/16/19 Unknown History amlodipine 5 mg PO DAILY #30 tab 09/01/19 10/16/19 Unknown Rx atorvastatin 40 mg PO DAILY #30 tab 09/01/19 10/16/19 Unknown Rx clopidogrel 75 mg PO DAILY #30 tab 09/01/19 10/16/19 Unknown Rx Allergies Allergy/AdvReac Type Severity Reaction Status Date / Time ibuprofen Allergy ALGY-Difficulty Verified 06/14/19 12:31 Breathing PFSH Acute PFSH: Medical History Arthritis Chronic kidney disease (CKD) Critical lower limb ischemia Diabetes Uncontrolled Hemodialysis patient Hemodialysis 3 days a week Hypertension MRSA cellulitis of left foot Non-healing ulcer Left Toe Peripheral vascular disease Surgical History History of colostomy History of partial colectomy History of prostate surgery History of transmetatarsal amputation of foot Status post transmetatarsal amputation of left foot Severe, non-reconstructable peripheral vascular disease with gangrenous changes left forefoot Family History Sister Cancer Social History (Updated 10/17/19 @ 01:33 by Hiwot Kulkarni MD) Smoking and tobacco status: former smoker Quit status (tobacco): has quit using tobacco Lives independently: Yes Housing: House Vitals/I&O/Wt Last Vital Signs Temp 101.7 F H 10/17/19 00:12 Pulse 84 10/17/19 00:12 Resp 18 10/17/19 00:12 BP 153/81 10/17/19 00:12 Pulse Ox 91 10/17/19 00:12 10/16/19 10/16/19 10/17/19 14:59 22:59 06:59 Intake Total 500 / 500 100 / 600 Balance 500 / 500 100 / 600 Weight last 48 hrs Weight 86.183 kg Physical Exam Narrative: EXAM NARRATIVE: Head to toe examination Appears more than stated age, he is keeping his eyes closed and laying on his right lateral side, saturating well on room Suntanned face and neck area Patient is irritable and aggressive but oriented to time place and person, he was able to tell me his month of accurately, he told me his name and stated hospital's name He is able to follow commands Is a right tunneled hemodialysis catheter with discoloration of tube, no active cellulitis around IV access Has right-sided peripheral IV which was placed in the ER Bilateral diminished breath sounds without adventitious sounds S1, S2 sinus tachycardia no signs of heart failure Abdomen has multiple scar partida, nontender, no CVA tenderness noted Irritable mood He is keeping his eyes closed during most of my evaluation, however following my commands able to move all of his extremities, no facial asymmetry No signs of meningismus Left foot has no active cellulitis or purulent drainage, there is granulation tissue at the tip on the left most lateral border without any active drainage He soiled himself with the urine while I was examining him Data : 10/16/19 20:25 10/16/19 20:25 Micro: Microbiology 10/16/19 20:25 Blood Culture - Preliminary Blood SPECIMEN COLLECTED 10/16/19 20:25 Blood Culture - Preliminary Blood SPECIMEN COLLECTED A&P Assessment and plan (1) Sepsis: Sepsis criteria met with fever, tachycardia, leukocytosis Good saturation on room air, no active respiratory distress Previously wound culture showed MRSA His hemodialysis catheter has discolored tubes without any active cellulitis around insertion site Source of fever has not been identified yet My concern is osteomyelitis with bacteremia causing high-grade fever, would use vancomycin and Zosyn If he becomes bacteremic would need removal of dialysis catheter with tip cu lture and echo His chest x-ray is showing bilateral nodules which are chronic, COVID negative on previous admission We will check procalcitonin, CRP, Ldh Status: Acute (2) Osteomyelitis: He has been getting IV vancomycin since 08/31, on dialysis days, I believe he has 1 more week left to finish the course Foot x-ray obtained showing changes around navicular bone Clinically no signs of cellulitis Status: Acute (3) Fever: Management mentioned under sepsis Status: Acute Qualifiers: Fever type: unspecified Qualified Code(s): R50.9 - Fever, unspecified (4) End-stage renal disease (ESRD): Wednesday dialysis dependent, No acute indication for hemodialysis, Status: Acute (5) S/P transmetatarsal amputation of foot: Status: Acute (6) Pulmonary nodules/lesions, multiple: Patient has a smoking history, not reliable historian, multiple nodules seen on his chest x-ray Rule out septic emboli Status: Acute (7) Type 2 diabetes mellitus: Renal dialysis diet with moderate dose insulin sliding scale Status: Acute (8) Acute hyperactive delirium due to another medical condition: No active signs of meningismus, GCS 15, following commands, able to protect airway He is not confused he is awake alert oriented x3 On review of previous records I found out that he has been exhibiting high progressive behavior in the past as well Judicious use of antipsychotics if needed, would avoid Ativan for now Status: Acute Additional A&P Information DVT prophylaxis: Heparin Renal dialysis diet Blood cultures obtained in the ER Attestations Medical Necessity Statement*: Anticipating stay in the hospital cross more than 2 midnights currently need IV antibiotics for sepsis Time Spent in Patient Care: (>than 50% of time spent in counselling and/or direct pt care on unit) . 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
[2019-10-17 01:21] LABS: Lactic Acid level (Lactate) 0.8 mmol/L (0.5-2.2)
--- NOTE | 2019-10-17 01:49 | PC.PHAR ---
Vancomycin is dosed at 1gm IVPB every 48 hours to produce a predicted trough level of 14.40 (population based pharmacokinetic analysis). A trough level has been ordered from the lab to be obtained before the fourth dose to confirm and adjust if needed. Zosyn is dosed at 3.375gm IVPB every 12 hours due to the creatinine clearance of 13.69. Each dose is to be infused over 4 hours per extended infusion protocol.
--- NOTE | 2019-10-17 01:53 | PC.NURSE ---
Admission: Patient refuses to answer any questions regarding admission. He is very agitated and states I want to rest and not be bothered. He refuses to answer any questions during physical exam and wants to be left alone. Completed admission to best of ability and letting patient rest. Left foot is partially amputated with no redness, drainage or edema noted at this time. Previous incision site is clean and dry. Right tunneled hemodialysis catheter is in place. Dressing is C/D/I. States he does not remember when it was changed last when asked. He is currently resting with eyes closed and will not open even when addressed. According to ED he is incontinent. Educated him him on urinal and needing urine sample, need reinforcement as he is very resistant to education or questions asked. Will let day shift know about needing pharmacy, medications and admission assessment completed.
[2019-10-17 02:23] LABS: Procalcitonin 1.31 ng/mL (0-0.5)
[2019-10-17 02:46] LABS: Lactate Dehydrogenase 277 U/L (135-225)
--- NOTE | 2019-10-17 02:59 | PC.NURSE ---
meds this nurse attempted to start zosyn IV and pt refused, saying leave me alone , I don't need any medicine. , wrapped himself up in his blanket and began tossing and turning saying get out. this nurse retimed the medication to retry later in the morning. will continue to monitor.
[2019-10-17 03:01] LABS: Uric Acid 4.5 mg/dL (3.4-7.0)
[2019-10-17 06:13] LABS: Basophils % 0.3 %; Eosinophils # 0.2 10^3/uL (0.0-0.8); Eosinophils % 1.6 %; Hematocrit 37.2 % (42.0-52.0); Hemoglobin 11.5 g/dL (11.7-16.6); Lymphocytes # 1.8 10^3/uL (0.8-4.8); Lymphocytes % 15.8 %; Mean Corpuscular HGB Conc 30.9 g/dL (30.0-36.0); Mean Corpuscular Hemoglobin 32.6 pg (28.0-34.0); Mean Corpuscular Volume 105.4 fL (80-94); Mean Platelet Volume 9.1 fL (7.4-10.4); Monocytes # 0.7 10^3/uL (0.2-0.9); Monocytes % 5.8 %; Neutrophils # 8.6 10^3/uL (1.8-7.7); Neutrophils % 74.6 %; Nucleated Red Blood Cells % 0 %; Platelet Count 156 10^3/cmm (130-400); Red Blood Count 3.53 10^6/uL (4.1-5.3); Red Cell Distribution Width 15.3 % (12.1-15.1); White Blood Count 11.5 10^3/uL (4.0-10.0)
[2019-10-17 06:31] LABS: Anion Gap 21.6 (5-19); Blood Urea Nitrogen 29 mg/dL (8-23); Calcium 9.9 mg/dL (8.5-10.5); Carbon Dioxide 27 mmol/L (22-29); Chloride 91 mmol/L (98-107); Glomerular Filtration Rate 6.7 mL/min (90-130); Glucose 81 mg/dL (65-115); Osmolality Calculated 276 mOsm/kg (285-295); Potassium 4.6 mmol/L (3.5-5.1); Sodium 135 mmol/L (136-145)
[2019-10-17] MEDS: piperacillin-tazobactam 3.375 GM in sodium chloride 0.9% (plus) 50 ML IV (07:47)
[2019-10-17] MEDS: heparin 5,000 unit/mL INJ 1 mL 5000 UNIT SUBCUT (07:47)
[2019-10-17] MEDS: allopurinol 100 mg Tablet 150 MG PO (07:55)
[2019-10-17] MEDS: sevelamer 800 mg Tablet PO (08:04)
[2019-10-17] MEDS: atorvastatin 40 mg Tablet PO (08:04)
[2019-10-17] MEDS: carvedilol 25 mg Tablet PO (08:04)
--- NOTE | 2019-10-17 08:06 | PM.CONSULT ---
Providers/Reason For Consult Consulting Physican/Specialty*: zoë frederick md/ telenephrology Reason for Consult*: ESRD care Attending Physician: Nelson Copeland MD Primary Care Provider: Hiwot Herrera MD History of Present Illness History of Present Illness Joshua Baugh is a 59 year old male who has significant past medical history of end-stage renal disease Wednesday hemodialysis, severe peripheral vascular disease, left forefoot gangrene failed angioplasty status post transmetatarsal amputation by Dr. Koch in 06/29. In August, he had wound debridement and was discharged on 6 weeks course of vancomycin for osteomyelitis of left distal navicular bone, wound culture positive for MRSA 08/27. He was admitted this am w/ fevers, aggressive behavior, and agitation. when i see the pt on . he coughs, c/o fevers, confused, and states he always has pain In ER pt had the following imaging: Chest x-ray showing chronic changes with bilateral nodules Foot x-ray concerning for osteomyelitis Review of Systems General: Reports: 10 or more systems reviewed and unremarkable except in HPI and below and ROS unobtainable due to medical condition Narrative: weak, fevers, cough, foot pain, poor appetite. denies c.p/ sob/ diarrhea. no xiao. Meds/Allergies Home Medications and Allergies Home Medications Medication Instructions Recorded Confirmed Last Taken Type carvedilol 25 mg PO BID 05/12/19 10/16/19 06/14/19 02:30 History hydrocodone-acetaminophen 0.5 - 1 tab PO Q4H PRN 05/12/19 10/16/19 1 Day Ago History ~06/13/19 sevelamer carbonate [Renvela] 800 mg PO TID 05/12/19 10/16/19 1 Day Ago History ~06/13/19 allopurinol 100 mg tablet 150 mg PO DAILY tab 08/17/19 10/16/19 Unknown History trazodone 50 mg tablet 50 mg PO .HS tab 08/17/19 10/16/19 Unknown History amlodipine 5 mg PO DAILY #30 tab 09/01/19 10/16/19 Unknown Rx atorvastatin 40 mg PO DAILY #30 tab 09/01/19 10/16/19 Unknown Rx clopidogrel 75 mg PO DAILY #30 tab 09/01/19 10/16/19 Unknown Rx Allergies Allergy/AdvReac Type Severity Reaction Status Date / Time ibuprofen Allergy ALGY-Difficulty Verified 06/14/19 12:31 Breathing PFSH Acute PFSH: Medical History Arthritis Chronic kidney disease (CKD) Critical lower limb ischemia Diabetes Uncontrolled Hemodialysis patient Hemodialysis 3 days a week Hypertension MRSA cellulitis of left foot Non-healing ulcer Left Toe Peripheral vascular disease Surgical History History of colostomy History of partial colectomy History of prostate surgery History of transmetatarsal amputation of foot Status post transmetatarsal amputation of left foot Severe, non-reconstructable peripheral vascular disease with gangrenous changes left forefoot Family History Sister Cancer Social History (Updated 10/17/19 @ 01:33 by Hiwot Kulkarni MD) Smoking and tobacco status: former smoker Quit status (tobacco): has quit using tobacco Lives independently: Yes Housing: House Vitals/I&O/Wt Last Vital Signs Temp 99.7 F H 10/17/19 07:00 Pulse 117 H 10/17/19 07:00 Resp 22 H 10/17/19 07:00 BP 149/83 10/17/19 07:00 Pulse Ox 95 10/17/19 07:00 10/16/19 10/17/19 10/17/19 22:59 06:59 14:59 Intake Total 500 / 500 100 / 600 Balance 500 / 500 100 / 600 Weight last 48 hrs Weight 86.183 kg Physical Exam Narrative: EXAM NARRATIVE: comfortable in bed. had fevers overnight. BP stable nard heent- nc/at, eomi, anicteric neck no jvp lung b/l ronchi heart reg abd soft, nt, nd, +BS ext left TMA, minimal b/l edmea neuro- a,a, o x 1-2 dialysis access - rt IJ PC Data Micro: Micro: Microbiology 10/16/19 20:25 Blood Culture - Pr eliminary Blood SPECIMEN [facility] 10/16/19 20:25 Blood Culture - Pr eliminary Blood SPECIMEN [facility] A&P Additional A&P Information 59 yr old man w/ AMS, fevers, ESRD, Q of Osteomyelitis- h/o Lt TMA 1.fever and AMS eval per hospitalist- f/u blood cx. -id blood cx +, may need to remove dialysis catheter -I am also concerned for foot as source of infection renal dose abx -wbc is 11 -normal lactate 2. ESRD- HD MWF- hd in am 3. Bone- minerla - metabolism of esrd- check ca, phos, pth 4. hgb okay for ESRD- may be dry 5. nodules on cxr- Q Septic, Q tob use. Q other cause- consider pulm eval 6. DM- glucose control per hospitalist 7. meds reviewed discussed w/ RN and pt- who is confused. Consult Attestations Medical Necessity Statement: fevers, Q OM, ESRD, AMS Time Spent in Patient Care: Greater than 35 minutes Coding Level of Care Code Acute Client Sales And Service Officer for Rafael Chambers
--- NOTE | 2019-10-17 09:39 | PC.RESP ---
Patient is very agitated and refusing. Respiratory Assess and treat not done due to lack of patient cooperation. No respiratory distress noted at this time.
--- NOTE | 2019-10-17 09:44 | PC.NURSE ---
Admission Assessment Pt is uncooperative at time of admission and morning assessment. Pt will not open eyes or appropriately answer questions. Pt responses have included, go to hell, dammit get off me, stop pulling on me. He has refused AM PO meds. Zosyn is currently infusing. BARBARA GAGNON MD notified.
[2019-10-17 10:10] LABS: Estmated Average Glucose 97
[2019-10-17] MEDS: haloperidol inj 5 mg/mL INJ 1 mL 3 MG IVP (10:10)
--- NOTE | 2019-10-17 10:18 | CT_ITS ---
WS: [id number] CT CHEST, ABDOMEN AND PELVIS NONCONTRAST. HISTORY: AMS, confusion TECHNIQUE: Contiguous 5 mm axial imaging performed through the chest, abdomen and pelvis without IV c ontrast, oral contrast has not been provided. Coronal and sagittal reformats chest. Coronal and sagit cayla reformats through the abdomen and pelvis. All CT scans at [facility] use at least one of these dose optimization techniques: automated exposure control; mA and/or kV adjustment per patie nt size (includes targeted exams where dose is matched to clinical indication); or iterative reconstr uction. CONTRAST: None DLP: 2273.13 mGy.cm COMPARISON: Chest CT 08/28/[address] abdomen and pelvis 04/23/[address]: Multi lobar nodules and masses have decreased in size since 08/28/2019. The largest nodule i n the LEFT upper lobe towards the periphery has decreased in size from 2.1 to 1.3 cm. More dense cons olidation at the RIGHT lung base with multiple nodules. Pleural-based nodule has decreased from 3.7 c m in diameter 3.0 cm. Lung volumes are decreased. Pleural-based calcification is again noted. No medi astinal or hilar adenopathy. There are benign calcified lymph nodes in the mediastinum. Extensive ath erosclerosis in the aorta. No aneurysm. Normal size pulmonary artery. Extensive coronary artery calci fications. Moderate enlargement the heart. Large bore IJ line. Mild enlargement of the LEFT thyroid l obe. Abdomen CT: Noncontrast examination of the liver, spleen, pancreas, gallbladder and kidneys and aorta demonstrates no acute change. Severe renal atrophy bilaterally with extensive atherosclerosis of aor ta and mesenteric arteries. LEFT renal cyst. No adenopathy or free fluid. Pelvic CT: No free fluid or adenopathy in the pelvis. No GI tract obstruction. Extensive atherosclero sis throughout the pelvic arteries. No osteoblastic or osteolytic bone disease. CT/CT chest abd pel wo con IMPRESSION: 1. Study is limited by motion artifact and lack of contrast. 2. Numerous, bilateral and multi lobar pulmonary nodules and masses have signi ficantly decreased in size since 08/28/2019. May have been postinflammatory or p ostinfectious. No history of malignancy or treatment for malignancy is evident in the history. 3. Extensive atherosclerosis of aorta and mesenteric arteries. 4. No GI tract obstruction. 5. Severe renal atrophy. 6. No ascites or adenopathy.
[2019-10-17] MEDS: lactated ringers 1,000 ML 75 ML IV (10:42)
[2019-10-17 11:12] LABS: Erythrocyte Sedimentation Rate 38 mm/hr (0-10)
--- NOTE | 2019-10-17 11:19 | PC.CHAP ---
Pastoral Care Encounter/Spiritual Assessment Type of Contact [x] Declined wet room worker visit [] Patient/Family/Request visit [] Outpatient visit [] Follow-up visit [] Physician referral [] Code/Alert [] Routine visit [] Staff referral [] Actively dying [] Patient sleeping [] Family support [] [] Out of room [] Palliative care [] [] Receiving care in room [] Pre-surgical visit [] Trauma [] Long length of stay [] ICU visit [] Other: Relational/Emotional Strength [] Patient feels connected with others/family/visitors/staff [] Distress [] Loneliness/isolation [] Abandonment Spirituality of Patient [] Person of Tabitha [] Attends Hindu of their Tabitha [] Believes in Prayer [] Reads Bible or Episcopalian materials [] There are Spiritual issues to be addressed Manager [employer] Interventions [] Prayer [] Active listening [] Non-anxious presence [] Spiritual/emotional support [] Crisis/trauma care [] Spiritual counseling [] Bereavement support [] Provided bereavement packet [] Provided Bible/devotional materials [] Provided toy/stuffed animal, coloring book to patient or family member [] Provided Communion [] Anointing/[place] [] Salvation [] Completed spiritual assessment [] Other: Impact on Illness or Injury [] Angry [] Fearful [] Anxious [] Often cries [] Exhaustion [] Unable to work [] Unable to attend religion [] Unable to walk/stand [] Unable to read [] Unable to drive [] Unable to eat/drink [] Unable to sleep [] Unable to be with family [] Patient intubated [] Other: Summary Declined wet room worker visit Time spent with patient 5 mins
--- NOTE | 2019-10-17 11:26 | PC.CHAP ---
Pastoral Care Encounter/Spiritual Assessment Type of Contact [] Declined material liaison visit [] Patient/Family/Request visit [] Outpatient visit [] Follow-up visit [] Physician referral [] Code/Alert [] Routine visit [] Staff referral [] Actively dying [] Patient sleeping [] Family support [] [] Out of room [] Palliative care [] [] Receiving care in room [] Pre-surgical visit [] Trauma [] Long length of stay [] ICU visit [x] Other: not able to chart, desmissed Relational/Emotional Strength [] Patient feels connected with others/family/visitors/staff [] Distress [] Loneliness/isolation [] Abandonment Spirituality of Patient [] Person of Tabitha [] Attends Yazdanism of their Tabitha [] Believes in Prayer [] Reads Bible or Mandaen materials [] There are Spiritual issues to be addressed Toddler Teacher Interventions [] Prayer [] Active listening [] Non-anxious presence [] Spiritual/emotional support [] Crisis/trauma care [] Spiritual counseling [] Bereavement support [] Provided bereavement packet [] Provided Bible/devotional materials [] Provided toy/stuffed animal, coloring book to patient or family member [] Provided Communion [] Anointing/[place] [] Salvation [] Completed spiritual assessment [] Other: Impact on Illness or Injury [] Angry [] Fearful [] Anxious [] Often cries [] Exhaustion [] Unable to work [] Unable to attend church [] Unable to walk/stand [] Unable to read [] Unable to drive [] Unable to eat/drink [] Unable to sleep [] Unable to be with family [] Patient intubated [] Other: Summary not able to chart, desmissed Time spent with patient 5 mins
[2019-10-17] MEDS: LORazepam 2 mg/mL INJ 1 mL IVP (11:35)
--- NOTE | 2019-10-17 13:39 | P.PN_ITS ---
Subjective Subjective: Interval history: This morning patient was examined, with nursing staff, patient has episodes of confusion, agitation, keeps saying to me stop kicking me, will not follow commands, will not follow instructions, does not answer questions appropriately, is alert, does respond to his name, but does not know where he is, does not know why he is here, his only complaints is of pain, he is not very specific in where his pain is, his pain is all over, during my physical examination, he says it hurts all over, he is writhing in his bed in pain, writhing in bed is quite agitated and confused I spoke to patient's home health care nurse, according to her home health care nurse, patient is alert oriented x3, is fairly compliant with medical therapy for the last few months, he is received vancomycin therapy for left lower extremity osteomyelitis, his PICC line was recently removed, he has been compliant with dialysis, has a right pigtail catheter in place, according to [facility] staff this yesterday afternoon he was getting dialysis, when he had a fever of 100.8, received 1 dose of vancomycin, when he arrived home off the bus, at roughly 5 PM when he was seen by his home health care nurse he was fairly confused, was quite agitated, he was threatening her at times, and this was quite unusual for him Vitals/I&O/Wt Last Vital Signs Temp 97.8 F 10/17/19 11:44 Pulse 106 H 10/17/19 11:44 Resp 22 H 10/17/19 11:44 BP 129/87 10/17/19 11:44 Pulse Ox 92 10/17/19 11:44 10/16/19 10/17/19 10/17/19 22:59 06:59 14:59 Intake Total 500 / 500 100 / 600 Balance 500 / 500 100 / 600 Weight last 48 hrs Weight 86.183 kg Physical Exam Narrative: EXAM NARRATIVE: Alert, does respond to his name, not oriented to person, not oriented to time, not oriented to place, does not respond to questions appropriately writhing in bed in pain, is quite anxious Neck/C-Spine: COMMON NORMALS: no JVD Lymph: LYMPHATIC: no lymphadenopathy noted Chest: OTHER: Has a right pigtail catheter in place Resp: COMMON NORMALS: normal respiratory effort, No retractions, No use of accessory muscles and clear to auscultation bilaterally AUSCULTATION: clear to auscultation bilaterally Cardio: COMMON NORMALS: no JVD, regular rate, regular rhythm, S1 normal heart sound present and S2 normal heart sound present RATE: regular rate RHYTHM: regular rhythm HEART SOUNDS: S1 normal heart sound present and S2 normal heart sound present GI: COMMON NORMALS: Normal to inspection, nondistended, normoactive bowel sounds present, Soft to palpation, non-tender and No hepatosplenomegaly present PALPATION: Yes Soft to palpation and Yes No hepatosplenomegaly present Extremity: COMMON NORMALS: capillary refill normal, no clubbing, cyanosis or edema, no calf tenderness and no pedal edema Neuro: OTHER: Does not follow neurologic exam, is writhing in bed in pain, not very specific in his pain location Psych: APPEARANCE: Yes unkempt ATTITUDE: Yes uncooperative and Yes agitated Data : 10/17/19 05:38 10/17/19 05:38 Micro: Microbiology 10/16/19 20:25 Blood Culture - Preliminary Blood SPECIMEN COLLECTED 10/16/19 20:25 Blood Culture - Preliminary Blood SPECIMEN COLLECTED A&P Assessment and plan (1) Septic encephalopathy: -Currently alert, responds to his name, not oriented to person, not oriented to place, not oriented to time, writhing in bed in pain, not very specific, confused, agitated -Has had fevers, temp T-max 101.7, heart rates as high as 110, blood pressure 120/87, saturating 92% on room air -Source of infection unclear? -Chest x-ray unremarkable for pneumonia -Patient has had a CT of his chest in the last few months which has shown findings concerning for metastatic pulmonary disease versus septic emboli, has not followed up -Urine analysis pending, unsure if he produces urine given that he is on dialysis -Left TMA site, status post debridement in the past, cultures positive for MRSA, positive for osteomyelitis, finished 6 weeks course of vancomycin, site looks clean and dry, no erythema, no swelling, no tenderness, foot x-ray does show Amputation along the midfoot with progression augmentation and loss of the normal bone since 08/28/2019. Suspicious for ongoing osteomyelitis at several of the residual tarsal bones. Clinically I do not feel that this is the source of patient's infection -Pro-Nam 1.31, lactic acid 1.0, ESR 38, CRP 36 -CT of the head shows probable chronic ischemic changes, mild low-density in the bilateral periventricular white matter -Septic encephalopathy source of infection at this point unclear Plan: -Order COVID-19 testing -Follow blood cultures, urine cultures, sputum cultures -Ordered CT chest abdomen pelvis -Meningitis is another thought, no neck rigidity, white blood cell count 11.5, is confused, will consider LP based on work-up -Order cardiac echocardiogram to evaluate for endocarditis -Patient does have a right pigtail catheter in place, potential source of infection? Will await blood cultures -Left foot TMA site with osteomyelitis could be a potential source for septic encephalopathy, but clinically area looks good, minimal ESR CRP elevation even though x-ray results he otherwise, will consider MRI of the left lower extremity -We will await UA -Patient is on broad-spectrum antibiotics vancomycin and Zosyn -We will consider ordering MRI of the left foot, MRI of the brain -Continue neurochecks, aspiration precautions, seizure precautions -As needed for agitation Status: Acute (2) Sepsis: Sepsis criteria met with fever, tachycardia, leukocytosis Good saturation on room air, no active respiratory distress Previously wound culture showed MRSA His hemodialysis catheter has discolored tubes without any active cellulitis around insertion site Source of fever has not been identified yet If he becomes bacteremic would need removal of dialysis catheter with tip culture and echo Status: Acute (3) Osteomyelitis: He has been getting IV vancomycin since 08/31, on dialysis days, finished 6 weeks course Foot x-ray obtained showing changes around navicular bone Clinically no signs of cellulitis Status: Acute (4) Fever: Management mentioned under sepsis Status: Acute Qualifiers: Fever type: unspecified Qualified Code(s): R50.9 - Fever, unspecified (5) End-stage renal disease (ESRD): Wednesday dialysis dependent, Will receive dialysis today Status: Acute (6) S/P transmetatarsal amputation of foot: Status: Acute (7) Pulmonary nodules/lesions, multiple: Patient has a smoking history, not reliable historian, multiple nodules seen on his chest x-ray Rule out septic emboli Status: Acute (8) Type 2 diabetes mellitus: Renal dialysis diet with moderate dose insulin sliding scale Status: Acute (9) Acute hyperactive delirium due to another medical condition: Status: Acute Additional A&P Information DVT prophylaxis: Heparin Renal dialysis diet Blood cultures obtained in the ER Attestations Medical Necessity Statement*: Patient requires continued hospitalization for septic encephalopathy Coding Level of Care Code Acute Varnish Melter Helper for [facility] Fwd Diagnoses Septic encephalopathy G93.41 Sepsis A41.9 Osteomyelitis M86.9 Fever R50.9 Fever type: unspecified End-stage renal disease (ESRD) N18.6 S/P transmetatarsal amputation of foot Z89.439 Pulmonary nodules/lesions, multiple R91.8 Type 2 diabetes mellitus E11.9 Acute hyperactive delirium due to another medical condition F05
--- NOTE | 2019-10-17 18:07 | PC.NURSE ---
pt refused medications at 1700, pt also had iv out and lying beside him, when asked to restart iv pt refused, chargemaster analyst nurse Adrienne notified.
[2019-10-18] VITALS (31 sets, daily range): BP systolic 107–187; BP diastolic 84–129; PULSE 110–123; RESP 18–27; TEMP 36.6–38.7; O2SAT 93–100
[2019-10-18 05:56] LABS: Basophils # 0.1 10^3/uL (0.0-0.1); Basophils % 0.4 %; Eosinophils # 0.2 10^3/uL (0.0-0.8); Eosinophils % 1.7 %; Hemoglobin 11.5 g/dL (11.7-16.6); Lymphocytes % 15.3 %; Mean Corpuscular HGB Conc 32.9 g/dL (30.0-36.0); Mean Corpuscular Hemoglobin 33.9 pg (28.0-34.0); Mean Corpuscular Volume 103.2 fL (80-94); Mean Platelet Volume 9.2 fL (7.4-10.4); Monocytes # 0.9 10^3/uL (0.2-0.9); Monocytes % 6.7 %; Neutrophils # 9.8 10^3/uL (1.8-7.7); Neutrophils % 74.1 %; Nucleated Red Blood Cells % 0 %; Platelet Count 156 10^3/cmm (130-400); Red Blood Count 3.39 10^6/uL (4.1-5.3); Red Cell Distribution Width 15.3 % (12.1-15.1); White Blood Count 13.3 10^3/uL (4.0-10.0)
[2019-10-18 06:13] LABS: Alanine Aminotransferase 17 U/L (0-41); Albumin Level 3.6 g/dL (3.5-5.2); Alkaline Phosphatase 88 IU/L (40-130); Anion Gap 27.2 (5-19); Aspartate Amino Transferase 15 U/L (0-40); Blood Urea Nitrogen 52 mg/dL (8-23); Calcium 10.9 mg/dL (8.5-10.5); Carbon Dioxide 22 mmol/L (22-29); Chloride 92 mmol/L (98-107); Glomerular Filtration Rate 4.7 mL/min (90-130); Glucose 88 mg/dL (65-115); Magnesium 2.3 mg/dL (1.7-2.3); Osmolality Calculated 280 mOsm/kg (285-295); Phosphorus 6.2 mg/dL (2.5-4.5); Potassium 5.2 mmol/L (3.5-5.1); Sodium 136 mmol/L (136-145); Total Bilirubin 0.7 mg/dL (0.15-1.2); Total Protein 6.6 g/dL (6.6-8.7)
--- NOTE | 2019-10-18 07:00 | USCV_ITS ---
Joshua Baugh Age: 59 Gender: M : 1960 Exam Date: 10/18/2019 13:49 Ordering Phys: Nelson Copeland MD Technologist: Shelly Gruber Exam Location: [facility] [place] Indication: EVAL FOR VEG BP: / HR: 128 Rhythm: Sinus Technical Quality: Very technically difficult study MEASUREMENTS (Male / Female) Normal Values 2D ECHO LV Diastolic Diameter PLAX 4.1 cm 4.2 - 5.9 / 3.9 - 5.3 cm LV Systolic Diameter PLAX 2.6 cm IVS Diastolic Thickness 1.1 cm 0.6 - 1.0 / 0.6 - 0.9 cm IVS Systolic Thickness 1.6 cm LVPW Diastolic Thickness 1.4 cm 0.6 - 1.0 / 0.6 - 0.9 cm LVPW Systolic Thickness 2.0 cm LVOT Diameter 2.0 cm LV Ejection Fraction 2D Teich 67.4 % LA Width 2.5 cm LA Height 3.9 cm FINDINGS Left Ventricle Normal LV size ejection fraction of 67%.no regional wall motion abnormalities. Right Ventricle Normal right ventricular size and systolic function. Right Atrium Possibly of normal size Left Atrium Normal size Mitral Valve Moderate mitral annular calcification. Aortic Valve Aortic valve leaflets could not be visualized well Tricuspid Valve Tricuspid valve not well visualized. Pulmonic Valve Pulmonic valve not well visualized. Pericardium No pericardial effusion. Aorta Normal aortic annulus size. CONCLUSIONS Normal LV size ejection fraction of 67%. No regional wall motion abnormalities. Moderate mitral annular calcification. The valve leaflets could not be visualized well. Patient was found to be tachycardic during the study. There is no pericardial effusion. Technically difficult study because of poor ultrasonic window Consider AIDA, to better evaluate for vegetations, if clinically indicated Dr Rubens Quintanilla MD FACC (Electronically Signed) Final Date: 18 October 2019 16:40 S
--- NOTE | 2019-10-18 07:32 | PM.PN ---
Subjective Subjective: Interval history: seen and examined. more awake, still aggitated. not eating well. had a fever overnight. Medications: Reviewed: Yes Medication Review Details: Current Medications Acetaminophen (Tylenol) 325 mg PO Q6H PRN PRN Reason: MILD PAIN OR INCREASE TEMP Hydrocodone Bitart/Acetaminophen ([place] 5-325 Mg) 0.5 - 1 tab PO Q4H PRN PRN Reason: Pain Allopurinol (Zyloprim) 150 mg PO DAILY [facility] Last Admin: 10/17/19 10:19 Dose: Not Given Documented by: Atorvastatin Calcium (Lipitor) 40 mg PO DAILY [facility] Last Admin: 10/17/19 10:19 Dose: Not Given Documented by: Carvedilol (Coreg) 25 mg PO BID [facility] Last Admin: 10/17/19 16:54 Dose: Not Given Documented by: Heparin Sodium (Beef Lung) (Heparin) 5,000 unit SUBCUT Q8H [facility] Last Admin: 10/17/19 21:19 Dose: Not Given Documented by: Piperacillin Sod/Tazobactam (Sod 3.375 gm/ Sodium Chloride) 50 mls @ 12.5 mls/hr IV Q12H [facility]; Protocol Last Admin: 10/17/19 19:21 Dose: Not Given Documented by: Lactated Ringer's (Lactated Ringers) 1,000 mls @ 75 mls/hr IV .[id number] [facility] Last Admin: 10/17/19 19:21 Dose: Not Given Documented by: Vancomycin HCl 1,000 mg/ (Sodium Chloride) 250 mls @ 250 mls/hr IV MoWeFr [facility]; Protocol Olanzapine (Zyprexa) 10 mg IM ONCE PRN PRN Reason: AGITATION Ondansetron HCl (Zofran) 4 mg IVP Q8H PRN PRN Reason: vomiting, or N/V if npo Sevelamer Carbonate (Renvela) 800 mg PO TID [facility] Last Admin: 10/17/19 19:40 Dose: Not Given Documented by: Vitals/I&O/Wt Last Vital Signs Temp 97.8 F 10/17/19 11:44 Pulse 101 H 10/17/19 22:45 Resp 22 H 10/17/19 11:44 BP 167/85 10/18/19 04:00 Pulse Ox 94 10/17/19 22:45 10/17/19 10/18/19 10/18/19 22:59 06:59 14:59 Intake Total 557.5 / 557.5 Balance 557.5 / 557.5 Weight last 48 hrs Weight 86.183 kg Physical Exam Narrative: EXAM NARRATIVE: comfortable in bed. had fevers overnight. BP stable nard heent- nc/at, eomi, anicteric neck no jvp lung b/l good air movement heart reg abd soft, nt, nd, +BS ext left TMA- appears c/d/i no lower ext edmea neuro- a,a, o x 1-2 dialysis access - rt IJ PC Data : 10/18/19 05:42 10/18/19 05:42 Micro: Microbiology 10/16/19 20:25 Blood Culture - Preliminary Blood NEGATIVE TO DATE 10/16/19 20:25 Blood Culture - Preliminary Blood NEGATIVE TO DATE A&P Additional A&P Information 59 yr old man w/ AMS, fevers, ESRD, Q of Osteomyelitis- h/o Lt TMA 1.fever and AMS eval per hospitalist- f/u blood cx. -if blood cx +, may need to remove dialysis catheter -foot looks clean- f/u per vasc/ pods- however x-ray c/w OM renal dose abx - check vanco trough -wbc is 13 -normal lactate -chest/ abd ct scan - w/ numerous b/l and multifocal pulm nodulses- dec in size since August 2019 2. ESRD- HD MWF- hd today- 3.5 hrs, 2k, remove 1l, hep 1000 u 3. Bone- mineral - metabolism of esrd- high ca- no vit d analouge, no ca based phos binder -hyperphosphatemia- renvela as a phos binder, - pth pending 4. hgb okay for ESRD- 5. nodules on chest CT- ex tob user, fevers- as per hospitalist -ensure he has pulm f/u 6. DM- glucose control per hospitalist 7. meds reviewed 8. MS lia discussed w/ RN and pt. Attestations Medical Necessity Statement*: fevers, ESRD, AMS Time Spent in Patient Care: 16 - 35 minutes Coding Level of Care Code Acute Aviation Support Equipment Repairer for g Reyes
[2019-10-18 08:58] LABS: Hepatitis C Virus Antibody Non-Reactive (Nonreactive)
[2019-10-18 10:01] LABS: Hepatitis B Surface AB 81.2 (0-8.5)
[2019-10-18] MEDS: haloperidol inj 5 mg/mL INJ 1 mL 3 MG IM (10:40)
[2019-10-18 10:43] LABS: Vancomycin Random 29.1 ug/mL (20.0-40.0)
[2019-10-18 10:44] LABS: Hepatitis B Surface Antigen Non-Reactive (Nonreactive)
--- NOTE | 2019-10-18 11:07 | PC.NURSE ---
pt is wrapping hands around dialysis tubes and getting tangled up in tubes and yelling at nurse when she is trying to keep him from getting tangled, he is saying hes going to hurt her while dialysis nurse Jennifer RN is trying to run dialysis, she called this nurse and this nurse notified Dr. Copeland he ordered soft restraints and 2 mg of ativan IM for medical necessity and safety for the Pt.
[2019-10-18] MEDS: LORazepam 2 mg/mL INJ 1 mL IM (11:12)
--- NOTE | 2019-10-18 12:47 | P.PN_ITS ---
Subjective Subjective: Interval history: This morning patient is seen lying in bed, all wrapped up in blankets, states that he is cold, complaints of generalized pain, has been afebrile for the last 24 hours, normotensive, has had sinus tachycardia, blood cultures remain unremarkable, patient does not follow commands, does wake up, does respond to his name, does say things such as my I am hurting all over, but is still quite agitated, remains confused, IV was lost last night, his COVID-19 testing is pending, Vitals/I&O/Wt Last Vital Signs Temp 97.9 F 10/18/19 07:45 Pulse 101 H 10/17/19 22:45 Resp 22 H 10/17/19 11:44 BP 107/84 10/18/19 07:45 Pulse Ox 94 10/17/19 22:45 10/17/19 10/18/19 10/18/19 22:59 06:59 14:59 Intake Total 557.5 / 557.5 Balance 557.5 / 557.5 Weight last 48 hrs Weight 86.183 kg Physical Exam Narrative: EXAM NARRATIVE: Alert, does respond to his name, not oriented to person, not oriented to time, not oriented to place, does not respond to questions appropriately writhing in bed in pain, is quite anxious Neck/C-Spine: COMMON NORMALS: no JVD Lymph: LYMPHATIC: no lymphadenopathy noted Chest: OTHER: Has a right pigtail catheter in place Resp: COMMON NORMALS: normal respiratory effort, No retractions, No use of acc essory muscles and clear to auscultation bilaterally AUSCULTATION: clear to auscultation bilaterally Cardio: COMMON NORMALS: no JVD, regular rate, regular rhythm, S1 normal heart sound present and S2 normal heart sound present RATE: regular rate RHYTHM: regular rhythm HEART SOUNDS: S1 normal heart sound present and S2 normal heart sound present GI: COMMON NORMALS: Normal to inspection, nondistended, normoactive bowel sounds present, Soft to palpation, non-tender and No hepatosplenomegaly present PALPATION: Yes Soft to palpation and Yes No hepatosplenomegaly present Extremity: COMMON NORMALS: capillary refill normal, no clubbing, cyanosis or edema, no calf tenderness and no pedal edema Neuro: OTHER: Does not follow neurologic exam, is writhing in bed in pain, not very specific in his pain location Psych: APPEARANCE: Yes unkempt ATTITUDE: Yes uncooperative and Yes agitated Data : 10/18/19 05:42 10/18/19 05:42 Micro: Microbiology 10/16/19 20:25 Blood Culture - Preliminary Blood NEGATIVE TO DATE 10/16/19 20:25 Blood Culture - Preliminary Blood NEGATIVE TO DATE A&P Assessment and plan (1) Septic encephalopathy: -Currently alert, responds to his name, complaining of pain all over, not oriented to person, not oriented to place, not oriented to time, writhing in bed in pain, not very specific, confused, agitated -Has had fevers, temp T-max 101.7, but has remained afebrile for the last 24 hours, heart rates as high as 118, blood pressure 107/84, saturating 92% on room air -Source of infection unclear? -Chest x-ray unremarkable for pneumonia -Patient has had a CT of his chest in the last few months which has shown findings concerning for metastatic pulmonary disease versus septic emboli, has not followed up, review of his CT of his chest during this admission shows that the septic emboli are improving -Urine analysis pending, unsure if he produces urine given that he is on dialysis -Left TMA site, status post debridement in the past, cultures positive for MRSA, positive for osteomyelitis, finished 6 weeks course of vancomycin, site looks clean and dry, no erythema, no swelling, no tenderness, foot x-ray does show Amputation along the midfoot with progression augmentation and loss of the normal bone since 08/28/2019. Suspicious for ongoing osteomyelitis at several of the residual tarsal bones. Clinically I do not feel that this is the source of patient's infection -Pro-[place] 1.31, lactic acid 1.0, ESR 38, CRP 36 -CT of the head shows probable chronic ischemic changes, mild low-density in the bilateral periventricular white matter -Septic encephalopathy source of infection at this point unclear but differential remains endocarditis versus meningitis versus encephalitis versus vertebral discitis osteomyelitis abscess Plan: -Order COVID-19 testing -Follow blood cultures, urine cultures, sputum cultures -Another thought could be his right pigtail catheter could be a source of infection, but so far no bacteremia -Meningitis and/or encephalitis is another thought, no neck rigidity, white blood cell count 13.3, remains afebrile is confused, will consider LP based on work-up -Order cardiac echocardiogram to evaluate for endocarditis -Patient does have a right pigtail catheter in place, potential source of infection? Will await blood cultures -Left foot TMA site with osteomyelitis could be a potential source for septic encephalopathy, but clinically area looks good, minimal ESR CRP elevation even though x-ray results he otherwise, will consider MRI of the left lower extremity -Patient is on broad-spectrum antibiotics vancomycin and Zosyn -We will consider ordering MRI of the left foot, MRI of the brain -Continue neurochecks, aspiration precautions, seizure precautions -As needed for agitation Status: Acute (2) Sepsis: Sepsis criteria met with fever, tachycardia, leukocytosis Good saturation on room air, no active respiratory distress Previously wound culture showed MRSA His hemodialysis catheter has discolored tubes without any active cellulitis around insertion site Source of fever has not been identified yet If he becomes bacteremic would need removal of dialysis catheter with tip culture and echo Status: Acute (3) Osteomyelitis: He has been getting IV vancomycin since 08/31, on dialysis days, finished 6 weeks course Foot x-ray obtained showing changes around navicular bone Clinically no signs of cellulitis Status: Acute (4) Fever: Management mentioned under sepsis Status: Acute Qualifiers: Fever type: unspecified Qualified Code(s): R50.9 - Fever, unspecified (5) End-stage renal disease (ESRD): Wednesday dialysis dependent, Will receive dialysis today Status: Acute (6) S/P transmetatarsal amputation of foot: Status: Acute (7) Pulmonary nodules/lesions, multiple: Patient has a smoking history, not reliable historian, multiple nodules seen on his chest x-ray Rule out septic emboli Status: Acute (8) Type 2 diabetes mellitus: Renal dialysis diet with moderate dose insulin sliding scale Status: Acute (9) Acute hyperactive delirium due to another medical condition: Status: Acute Additional A&P Information DVT prophylaxis: Heparin Renal dialysis diet Blood cultures obtained in the ER Attestations Medical Necessity Statement*: Patient requires continued hospitalization due to septic encephalopathy Coding Level of Care Code Acute Child'S Nurse for [facility] Diagnoses Septic encephalopathy G93.41 Sepsis A41.9 Osteomyelitis M86.9 Fever R50.9 Fever type: unspecified End-stage renal disease (ESRD) N18.6 S/P transmetatarsal amputation of foot Z89.439 Pulmonary nodules/lesions, multiple R91.8 Type 2 diabetes mellitus E11.9 Acute hyperactive delirium due to another medical condition F05
[2019-10-18] MEDS: metoprolol tartrate 1 mg/1 mL SDV 5 mL 5 MG IV ×3 (14:10→23:06)
[2019-10-18] MEDS: vancomycin 1,000 MG in sodium chloride 0.9% 250 ML 250 MG IV (14:10)
[2019-10-18 15:17] LABS: Creatine Phosphokinase 30 U/L (39-308)
[2019-10-18 15:17] LABS: Bilirubin Urine Neg (NEGATIVE); Glucose Urine UA Norm (Normal); Ketones Urine Negative (Negative); Nitrate Urine Negative (Negative); Protein Urine 1+ (Negative); Specific Gravity, Urine 1.015 (1.005-1.030); Sulfosalicylic Acid Urine Positive (Negative); Urine Appearance Clear (CLEAR); Urine Color Yellow (Yellow); Urobilinogen Urine Neg (Negative); pH Urine 9 (5-7)
[2019-10-18 15:18] LABS: Add Urine Microscopic? YES; Blood Urine 3+ (Negative); Leukocyte Esterase Urine Negative (Negative)
[2019-10-18 15:19] LABS: Add Urine Culture? Yes; Bacteria Urine 1+; Mucus Urine TRACE; RBC Urine 40-50 /hpf (0-2); WBC Urine 0-4 /hpf (0-5)
[2019-10-18 15:29] LABS: Coronavirus Lab Test PTC Negative
[2019-10-18] MEDS: LORazepam 2 mg/mL INJ 1 mL 0.5 MG IVP (16:06)
[2019-10-18 16:08] LABS: HIV 1 & 2 Antibody Non-Reactive (Non-Reactiv); HIV 1 & 2 Antigen Non-Reactive (Non-Reactiv)
--- NOTE | 2019-10-18 16:33 | P.PCN_ITS ---
Procedure/Consent Time out: Time Out Performed: Yes Consent: Consent for Procedure: Consent obtained from other (indicate) Procedure Narrative: Name of the procedure: Aspiration of right olecranon bursa Description of the procedure: Site was prepared using sterile technique. A 16- gauge needle was introduced and thick pus looking fluid was aspirated. There is no significant blood loss. Sample: The sample was sent for cell count and differential, crystal, Gram stain and culture. Complication: None Acute Procedures Epistaxis Control: Time out performed: Yes
--- NOTE | 2019-10-18 16:35 | PM.ACPR ---
Procedure/Consent Time out: Time Out Performed: Yes Consent: Consent for Procedure: Consent obtained from other (indicate) Procedure Narrative: Name of the procedure: Lumbar puncture Medications: Lidocaine 1% 5 mL, Ativan 1 mg IV Description of the procedure: The site was prepared using sterile technique. Using iliac crest as a landmark the space between L3-L4 vertebrae was identified. The skin and subcutaneous tissue was anesthetized with 1% lidocaine. The deeper tissue was also incised. Multiple attempts were made to obtain the CSF however the CSF could not be obtained. Complication: None Acute Procedures Epistaxis Control: Time out performed: Yes
[2019-10-18] MEDS: metroNIDAZOLE IV 500 MG/100 ML PREMIX 100 MG IV ×2 (17:08→23:47)
[2019-10-18] MEDS: heparin 5,000 unit/mL INJ 1 mL 5000 UNIT SUBCUT (17:08)
[2019-10-18 17:16] LABS: Crystals, Fluid See Path Consult
[2019-10-18 17:38] LABS: Glucose Point of Care 88 mg/dL (70-110)
--- NOTE | 2019-10-18 17:38 | PC.OT ---
Attempted eval at 3:45 pm. Hold today due to procedures being performed this afternoon: Aspiration of right olecranon bursa, lumbar puncture. Will attempt patient's occupational therapy evaluation tomorrow.
--- NOTE | 2019-10-18 17:43 | PC.NURSE ---
Dr Copeland ordered the pt to be straight cath, this nurse with the assistance of CIARA Rosa, and CIARA Rodriguez. Pt tolerated well. specimen sent to lab.
--- NOTE | 2019-10-18 17:51 | PC.NURSE ---
updated on transfer to ICU.
[2019-10-18] MEDS: hyDRALAzine 20 mg/mL INJ 1 mL 10 MG IVP ×2 (18:04→20:39)
[2019-10-18 18:40] LABS: INR 1.05 (0.8-1.2)
--- NOTE | 2019-10-18 19:04 | PC.NURSE ---
Patient transfer patient to ICU 12 at 1753, BP elevated at 173/106. 10mg Hydralazine administered. Patient is resting with eyes closed, on 2l nasal cannula saturations at 98%. appears to be in no distress. Unable to follow commands, is somewhat fidgety with upper extremeties. temp axillary is 100.7.
--- NOTE | 2019-10-18 19:16 | PC.NURSE ---
Noon vitals were not done by aide because patient was in Dialysis. When patient returned to room from Dialysis a different aide that was sitting 1;1 with patient took over vitals and patient care. Evening vitals were charted.
[2019-10-18] MEDS: haloperidol inj 5 mg/mL INJ 1 mL 2 MG IVP (19:26)
--- NOTE | 2019-10-18 19:28 | PC.NURSE ---
agitation upon nurse entering room, patient is very restless in bed. patient is pulling off cardiac leads and pull on pulse ox. when nurse tries to redirect patient states stop it. you are hurting me. leave me alone. nurse asked patient if he was hurting anywhere are patient stated no. patient unable to answer where he is. but patient does look at nurse when his name is spoken. temp checked and is 100.6. will continue to monitor.
[2019-10-18 19:31] LABS: Appearance Synovial Fluid TURBID (CLEAR); Apprearance, Body Fluid TURBID (CLEAR); Color Synovial Fluid SLIGHT PINK (PALE YELLOW); Color, Body Fluid SLIGHT PINK (PALE YELLOW); PATH Referral YES
[2019-10-18 19:33] LABS: PATH Referal YES
--- NOTE | 2019-10-18 19:37 | PC.NURSE ---
cardiac leads patient has pulled cardiac leads off after every attempt to reapply. spoke with . verbal okay by to leave cardiac leads off patient if he continues to pull on leads.
[2019-10-18] MEDS: piperacillin-tazobactam 3.375 GM in sodium chloride 0.9% (plus) 50 ML IV (20:34)
[2019-10-18 21:22] LABS: Glucose Point of Care 123 mg/dL (70-110)
[2019-10-18] MEDS: LORazepam 2 mg/mL INJ 1 mL 1 MG IVP (23:30)
[2019-10-19] VITALS (71 sets, daily range): BP systolic 121–195; BP diastolic 76–167; PULSE 99–132; RESP 15–32; TEMP 37–38.3; O2SAT 83–100
[2019-10-19 00:40] LABS: Glucose Point of Care 95 mg/dL (70-110)
[2019-10-19] MEDS: hyDRALAzine 20 mg/mL INJ 1 mL 10 MG IVP ×3 (02:22→21:33)
[2019-10-19] MEDS: metoprolol tartrate 1 mg/1 mL SDV 5 mL 5 MG IV ×4 (05:15→23:38)
[2019-10-19] MEDS: LORazepam 2 mg/mL INJ 1 mL 1 MG IVP ×5 (05:15→14:20)
--- NOTE | 2019-10-19 05:17 | PC.NURSE ---
patient becoming increasingly more restless throughout the night. after lab draw at 0510, patient began pulling off gown, attempting to pull at dialysis catheter and flailing hands in the air. redirection was attempted by nurse with no success. 1mg ativan given per PRN order. will continue to monitor and redirect/reorient patient
[2019-10-19 05:31] LABS: Basophils % 0.3 %; Eosinophils # 0.2 10^3/uL (0.0-0.8); Eosinophils % 1.7 %; Hematocrit 34.4 % (42.0-52.0); Hemoglobin 10.6 g/dL (11.7-16.6); Lymphocytes # 1.3 10^3/uL (0.8-4.8); Lymphocytes % 11.7 %; Mean Corpuscular HGB Conc 30.8 g/dL (30.0-36.0); Mean Corpuscular Hemoglobin 32.1 pg (28.0-34.0); Mean Corpuscular Volume 104.2 fL (80-94); Mean Platelet Volume 9.3 fL (7.4-10.4); Monocytes # 0.9 10^3/uL (0.2-0.9); Monocytes % 7.9 %; Neutrophils # 8.7 10^3/uL (1.8-7.7); Neutrophils % 77.6 %; Nucleated Red Blood Cells % 0 %; Platelet Count 162 10^3/cmm (130-400); Red Cell Distribution Width 15.3 % (12.1-15.1); White Blood Count 11.3 10^3/uL (4.0-10.0)
[2019-10-19 05:53] LABS: Alanine Aminotransferase 14 U/L (0-41); Albumin Level 3.4 g/dL (3.5-5.2); Alkaline Phosphatase 83 IU/L (40-130); Anion Gap 24.7 (5-19); Aspartate Amino Transferase 13 U/L (0-40); Blood Urea Nitrogen 32 mg/dL (8-23); Calcium 10.9 mg/dL (8.5-10.5); Carbon Dioxide 23 mmol/L (22-29); Chloride 96 mmol/L (98-107); Globulin 3.1 g/dL (1.3-4.6); Glomerular Filtration Rate 6.3 mL/min (90-130); Glucose 102 mg/dL (65-115); Magnesium 2.3 mg/dL (1.7-2.3); Osmolality Calculated 285 mOsm/kg (285-295); Phosphorus 6.7 mg/dL (2.5-4.5); Potassium 4.7 mmol/L (3.5-5.1); Sodium 139 mmol/L (136-145); Total Bilirubin 0.6 mg/dL (0.15-1.2); Total Protein 6.5 g/dL (6.6-8.7)
[2019-10-19 06:21] LABS: Ferritin 5504 ng/mL (30-400)
[2019-10-19 07:16] LABS: Calcium 10.9 mg/dL (8.5-10.5); Parathyroid Hormone 240.7 pg/mL (15-65)
--- NOTE | 2019-10-19 07:22 | PM.PN ---
Subjective Subjective: Interval history: was given haldol and ativan- he is lethagic. not answering appropriately Medications: Reviewed: Yes Medication Review Details: Current Medications Acetaminophen (Tylenol) 325 mg PO Q6H PRN PRN Reason: MILD PAIN OR INCREASE TEMP Acetaminophen (Tylenol) 650 mg [place] Q6H PRN PRN Reason: FEVER Hydrocodone Bitart/Acetaminophen ([place] 5-325 Mg) 0.5 - 1 tab PO Q4H PRN PRN Reason: Pain Allopurinol (Zyloprim) 150 mg PO DAILY [facility] Last Admin: 10/18/19 09:30 Dose: Not Given Documented by: Atorvastatin Calcium (Lipitor) 40 mg PO DAILY [facility] Last Admin: 10/18/19 09:30 Dose: Not Given Documented by: Carvedilol (Coreg) 25 mg PO BID [facility] Last Admin: 10/18/19 09:30 Dose: Not Given Documented by: Haloperidol Lactate (Haldol Inj) 2 mg IVP Q4H PRN PRN Reason: AGITATION Last Admin: 10/18/19 19:26 Dose: 2 mg Documented by: Heparin Sodium (Beef Lung) (Heparin) 5,000 unit SUBCUT Q8H [facility] Last Admin: 10/19/19 00:00 Dose: 5,000 unit Documented by: Hydralazine HCl (Apresoline) 10 mg IVP Q4H PRN PRN Reason: SBP>180 Last Admin: 10/19/19 02:22 Dose: 10 mg Documented by: Piperacillin Sod/Tazobactam (Sod 3.375 gm/ Sodium Chloride) 50 mls @ 12.5 mls/hr IV Q12H [facility]; Protocol Last Admin: 10/18/19 20:34 Dose: 12.5 mls/hr Documented by: Vancomycin HCl 1,000 mg/ (Sodium Chloride) 250 mls @ 250 mls/hr IV MoWeFr [facility]; Protocol Last Admin: 10/18/19 14:10 Dose: 250 mls/hr Documented by: Sodium Chloride (Sodium Chloride 0.9%) 1,000 mls @ 0 mls/hr IV .Q0M PRN PRN Reason: hypotension or symptomatic Metronidazole (Flagyl Iv) 500 mg in 100 mls @ 100 mls/hr IV Q8H [facility]; Protocol Last Admin: 10/18/19 23:47 Dose: 100 mls/hr Documented by: Lorazepam (Ativan) 1 mg IVP Q4H PRN PRN Reason: ANXIETY Last Admin: 10/19/19 05:15 Dose: 1 mg Documented by: Metoprolol Tartrate (Metoprolol Tartrate) 5 mg IV Q6H [facility] Last Admin: 10/19/19 05:15 Dose: 5 mg Documented by: Olanzapine (Zyprexa) 10 mg IM ONCE PRN PRN Reason: AGITATION Ondansetron HCl (Zofran) 4 mg IVP Q8H PRN PRN Reason: vomiting, or N/V if npo Sevelamer Carbonate (Renvela) 1,600 mg PO TIDWM [facility] Last Admin: 10/18/19 18:01 Dose: Not Given Documented by: Vitals/I&O/Wt Last Vital Signs Temp 99.5 F 10/19/19 06:00 Pulse 108 H 10/19/19 06:00 Resp 18 10/19/19 06:00 BP 154/94 10/19/19 06:00 Pulse Ox 96 10/19/19 06:00 10/18/19 10/19/19 10/19/19 22:59 06:59 14:59 Intake Total 100 / 150 0 / 150 Output Total 0 / 0 0 / 0 Balance 100 / 150 0 / 150 Physical Exam Narrative: EXAM NARRATIVE: comfortable in bed. had fevers overnight. BP elevated and tachycardic nard heent- nc/at, eomi, anicteric neck no jvp lung b/l good air movement heart reg, tachycardic, +SIENA abd soft, nt, nd, +BS ext left TMA- appears c/d/i no lower ext edmea neuro- lethargic dialysis access - rt IJ PC Data : 10/19/19 05:08 10/19/19 05:08 Micro: Microbiology 10/18/19 18:05 Blood Culture - Preliminary Blood SPECIMEN COLLECTED 10/18/19 18:05 Blood Culture - Preliminary Blood SPECIMEN COLLECTED A&P Additional A&P Information 59 yr old man w/ AMS, fevers, ESRD, Q of Osteomyelitis- h/o Lt TMA 1.fever and AMS eval per hospitalist. -all cx NGTD -s/p LP and knee tap on 10/18/19 -foot looks clean- f/u per vasc/ pods- however x-ray c/w OM renal dose abx - check vanco trough -wbc is 13 -normal lactate -chest/ abd ct scan - w/ numerous b/l and multifocal pulm nodulses- dec in size since August 2019 2. ESRD- HD MWF- hd in am- 3.5 hrs, 2k, remove 2l, hep 1000 u BP a little high- can add beta salvador 3. Bone- mineral - metabolism of esrd- high ca- no vit d analouge, no ca based phos binder -hyperphosphatemia- renvela as a phos binder, inc dose - pth pending 4. hgb okay for ESRD- high ferritin may need epo soon 5. nodules on chest CT- ex tob user, fevers- as per hospitalist -as per pulm 6. DM- glucose control per hospitalist 7. meds reviewed 8. MS renae- he is getting haldol and ativan discussed w/ RN and pt. Attestations Medical Necessity Statement*: fevers, AMS, ESRD Time Spent in Patient Care: 16 - 35 minutes Coding Level of Care Code Acute Laundry Agent for Eduardg Reyes
[2019-10-19] MEDS: haloperidol inj 5 mg/mL INJ 1 mL 2 MG IVP ×2 (08:04→11:50)
[2019-10-19] MEDS: heparin 5,000 unit/mL INJ 1 mL 5000 UNIT SUBCUT ×2 (08:05)
[2019-10-19] MEDS: metroNIDAZOLE IV 500 MG/100 ML PREMIX 100 MG IV (08:06)
[2019-10-19] MEDS: piperacillin-tazobactam 3.375 GM in sodium chloride 0.9% (plus) 50 ML IV (09:31)
--- NOTE | 2019-10-19 09:50 | MR_ITS ---
WS: [id number] MRI BRAIN WITHOUT CONTRAST HISTORY: r/o brainstem stroke COMPARISON: None available. TECHNIQUE: Diffusion imaging, multiplanar T1, T2 and FLAIR imaging obtained. There are numerous bilateral acute infarcts. LEFT paramedian acute pontine infarct extends from the a nterior rex to the base of the rex. There is an additional small lacunar infarct in the RIGHT cereb ellum. Additional acute infarcts involving the centrum semiovale ovale and extending into the corpus callosum. There is a smaller infarct at the RIGHT vertex, likely involving the posterior frontal ld ex. No associated hemorrhage. Study is significantly limited by motion. There is no inferior displacement of the cerebellar tonsils . No significant hydrocephalus. No inferior displacement of cerebellar tonsils. The sella turcica and pituitary gland are unremarkabl e. No thrombus in the dural venous sinuses. Paranasal sinuses: Mild mucoperiosteal thickening in the paranasal sinuses. Mastoid air cells: Normal. Calvarium and scalp: Intact. MR/MR head wo con* [id number] IMPRESSION: 1. Multifocal acute infarcts. 2. LEFT paramedian pontine infarct, RIGHT cerebellar lacunar infarct. Bilatera l cortical infarcts in the medial frontal lobe cortex. 3. No hemorrhage.
[2019-10-19 11:16] LABS: pH Synovial Fluid 10 (7.0-7.5)
[2019-10-19 11:48] LABS: Glucose Point of Care 98 mg/dL (70-110)
--- NOTE | 2019-10-19 12:19 | PC.OT ---
Patient is non responsive per PT, and withhold OT services at this time. To attempt on a later date.
--- NOTE | 2019-10-19 12:23 | PC.PT ---
PT note; patient has received Haldol and Ativan, unable to arouse for participation with PT evaluation today, will follow
[2019-10-19 13:54] LABS: CSF Mononuclear # 0.115 10^3/uL (50-90); Mononuclear WBC CSF % 79 % (50-90); Polynuclear Cells ,CSF # 0.031 10^3/uL (0-10); Polynuclear WBC CSF % 21 % (0-10); Red Blood Cell CSF 0 10^3/uL (0-0)
[2019-10-19 14:07] LABS: Total Protein CSF 101 mg/dL (15-45)
[2019-10-19 14:08] LABS: Appearance CSF CLEAR (CLEAR); Color CSF COLORLESS (COLORLESS); White Blood Cell CSF 146 /uL (0-5)
--- NOTE | 2019-10-19 14:18 | P.PN_ITS ---
Subjective Subjective: Interval history: This morning patient was examined, patient is barely arousable with sternal rub, does fidget here and there, blood pressure in the 170s over 80s, heart rates 100s 2 120s, sinus tachycardia, on 2 L nasal cannula, T-max 101, yesterday Dr. Maryuri capellan performed a bedside lumbar puncture which was unsuccessful, but we did drain the right elbow of yellow viscous fluid, unfortunately the specimen was too clotted off for cell count or differential, but a Gram stain is and culture are pending, Gram stain so far is unremarkable, given patient's persistent confusion, the plan is to perform a lumbar puncture to evaluate for meningitis, encephalitis, and will do an MRI of the brain. Patient currently has been on antibiotics for the last 48 hours, broad-spectrum, without any significant improvement in his mentation, continues to have fevers, and now his mentation has worsened and is barely arousable which is not usual for him usually he is usually quite vocal, really quite agitated with us at times which is not what I see today. Vitals/I&O/Wt Last Vital Signs Temp 98.6 F 10/19/19 12:00 Pulse 106 H 10/19/19 12:00 Resp 23 H 10/19/19 12:00 BP 167/87 10/19/19 12:00 Pulse Ox 98 10/19/19 12:00 10/18/19 10/19/19 10/19/19 22:59 06:59 14:59 Intake Total 100 / 150 150 / 300 Output Total 0 / 0 0 / 0 Balance 100 / 150 150 / 300 Physical Exam Narrative: EXAM NARRATIVE: This morning barely arousable to sternal rub, does open his eyes to command, does fidget here and there, but less responsive, less aggressive, which is concerning Neck/C-Spine: COMMON NORMALS: no JVD Lymph: LYMPHATIC: no lymphadenopathy noted Chest: OTHER: Has a right pigtail catheter in place Resp: COMMON NORMALS: normal respiratory effort, No retractions, No use of accessory muscles and clear to auscultation bilaterally AUSCULTATION: clear to auscultation bilaterally Cardio: COMMON NORMALS: no JVD, regular rate, regular rhythm, S1 normal heart sound present and S2 normal heart sound present RATE: regular rate RHYTHM: regular rhythm HEART SOUNDS: S1 normal heart sound present and S2 normal heart sound present GI: COMMON NORMALS: Normal to inspection, nondistended, normoactive bowel sounds present, Soft to palpation, non-tender and No hepatosplenomegaly present PALPATION: Yes Soft to palpation and Yes No hepatosplenomegaly present Extremity: COMMON NORMALS: capillary refill normal, no clubbing, cyanosis or edema, no calf tenderness and no pedal edema OTHER: Right olecranon bursa, still swollen, slightly erythematous, draining site has dried blood Back exam, LP site looks clean and dry Neuro: OTHER: Does not follow neurologic exam, Psych: APPEARANCE: Yes unkempt ATTITUDE: Yes uncooperative and Yes agitated Data : 10/19/19 05:08 10/19/19 05:08 Micro: Microbiology 10/19/19 12:10 Blood Culture - Preliminary Blood SPECIMEN COLLECTED 10/19/19 12:00 Blood Culture - Preliminary Blood SPECIMEN COLLECTED 10/18/19 14:57 Urine Culture - Preliminary Urine,Clean Catch 10/18/19 16:00 Gram Stain - Final Other Source 10/18/19 18:17 MRSA Culture - Final Nose 10/18/19 18:05 Blood Culture - Preliminary Blood SPECIMEN COLLECTED 10/18/19 18:05 Blood Culture - Preliminary Blood SPECIMEN COLLECTED A&P Assessment and plan (1) Septic encephalopathy: -Currently less responsive, barely opens his eyes to sternal rub, less agitated, all of which is concerning -Has had fevers, temp T-max 101.0, has remained febrile for the last 24 hours, heart rates as high as 130 sinus tachycardia, blood pressure blood pressure 170s over 100s, saturating 92% on room air -Source of infection unclear under investigation possibilities include bacterial/aseptic meningitis versus encephalitis versus dialysis port infection brainstem stroke -Chest x-ray unremarkable for pneumonia -Patient has had a CT of his chest in the last few months which has shown fi ndings concerning for metastatic pulmonary disease versus septic emboli, has not followed up, review of his CT of his chest during this admission shows that the septic emboli are improving, are quite small -Urine analysis unremarkable -COVID negative -Left TMA site, status post debridement in the past, cultures positive for MRSA, positive for osteomyelitis, finished 6 weeks course of vancomycin, site looks clean and dry, no erythema, no swelling, no tenderness, foot x-ray does show Amputation along the midfoot with progression augmentation and loss of the normal bone since 08/28/2019. Suspicious for ongoing osteomyelitis at several of the residual tarsal bones. Clinically I do not feel that this is the source of patient's infection -CT of the head shows probable chronic ischemic changes, mild low-density in the bilateral periventricular white matter -Echocardiogram, at bedside, was a poor study, but no gross vegetations -First set of blood cultures have been unremarkable, repeat blood cultures unremarkable -Bedside drainage of olecranon bursa, with thick yellow viscous fluid, Gram st ain shows no WBCs, no organisms, I spoke to the pathologist, large crystals are seen, I do not think that this is a septic joint, I have spoken to Dr. Mccarthy -Patient will have a bedside lumbar puncture today by Dr. Ly, MRI today Plan: -Currently on vancomycin, Zosyn, Flagyl, acyclovir -Follow blood cultures, urine cultures, sputum cultures -Another thought could be his right pigtail catheter could be a source of infection, but so far no bacteremia -Meningitis and/or encephalitis lumbar puncture to be performed today, I have added acyclovir to regimen -Left foot TMA site with osteomyelitis could be a potential source for septic encephalopathy, but clinically area looks good, minimal ESR CRP elevation even though x-ray results he otherwise, will consider MRI of the left lower extremity -Continue neurochecks, aspiration precautions, seizure precautions -As needed for agitation Status: Acute (2) Sepsis: Sepsis criteria met with fever, tachycardia, leukocytosis Good saturation on room air, no active respiratory distress Previously wound culture showed MRSA His hemodialysis catheter has discolored tubes without any active cellulitis around insertion site Source of fever has not been identified yet If he becomes bacteremic would need removal of dialysis catheter with tip culture and echo Status: Acute (3) Osteomyelitis: He has been getting IV vancomycin since 08/31, on dialysis days, finished 6 weeks course Foot x-ray obtained showing changes around navicular bone Clinically no signs of cellulitis Status: Acute (4) Fever: Management mentioned under sepsis Status: Acute Qualifiers: Fever type: unspecified Qualified Code(s): R50.9 - Fever, unspecified (5) End-stage renal disease (ESRD): Wednesday dialysis dependent, Will receive dialysis today Status: Acute (6) S/P transmetatarsal amputation of foot: Status: Acute (7) Pulmonary nodules/lesions, multiple: Patient has a smoking history, not reliable historian, multiple nodules seen on his chest x-ray Rule out septic emboli Status: Acute (8) Type 2 diabetes mellitus: Renal dialysis diet with moderate dose insulin sliding scale Status: Acute (9) Acute hyperactive delirium due to another medical condition: Status: Acute Additional A&P Information DVT prophylaxis: Heparin Renal dialysis diet Blood cultures obtained in the ER Attestations Medical Necessity Statement*: Patient requires continued hospitalization due to altered mental status, Coding Level of Care Code Acute Route Service Representative for [facility] Fwd Exam Detailed Diagnoses Septic encephalopathy G93.41 Sepsis A41.9 Osteomyelitis M86.9 Fever R50.9 Fever type: unspecified End-stage renal disease (ESRD) N18.6 S/P transmetatarsal amputation of foot Z89.439 Pulmonary nodules/lesions, multiple R91.8 Type 2 diabetes mellitus E11.9 Acute hyperactive delirium due to another medical condition F05
[2019-10-19 14:38] LABS: Glucose CSF 33 mg/dL (40-70)
[2019-10-19 15:02] LABS: Pathology Referral Yes
[2019-10-19] MEDS: ampicillin 2,000 MG in sodium chloride 0.9% (plus) 50 ML 100 MG IV ×3 (15:17→23:40)
--- NOTE | 2019-10-19 15:52 | PC.NURSE ---
To MRI from 1345 - 1500, VSS on ambulance,no s/sx of distress during MRI. Ativan given per order for MRI tolerance, pt still restless and somewhat agitated during test.
--- NOTE | 2019-10-19 16:03 | P.MISC_ITS ---
Miscellaneous Note Purpose of Documentation: lumbar puncture Note: Procedure note: Lumbar puncture was performed using sterile technique. Multiple attempts were made with the patient in the lateral decubitus position but I was unable to gain entrance to a satisfactory degree. I actually thought that I was in the subarachnoid space at L4-5 but was unable to obtain any fluid. The patient was shifted to a sitting position and entrance to the subarachnoid space was obtained with one puncture. The initial 3 mL were slightly blood- tinged and appeared slightly turbid. 6 further milliliters of CSF were obtained with a slightly xanthochromic color. Opening and closing pressure not done since the patient was sitting up. It was my impression that the traumatic tap was from the initial entrance with the patient in the decubitus position
[2019-10-19] MEDS: cefTRIAXone 2,000 MG in sodium chloride 0.9% (plus) 50 ML 100 MG IV (16:09)
[2019-10-19 17:49] LABS: Glucose Point of Care 98 mg/dL (70-110)
--- NOTE | 2019-10-19 19:06 | PC.NURSE ---
family at bedside Patients Marcia torres and her in waiting room. RosieRN spoke with family before entering room. sister at bedside.
[2019-10-20] VITALS (26 sets, daily range): BP systolic 124–163; BP diastolic 76–112; PULSE 110–126; RESP 18–36; TEMP 37.6–37.9; O2SAT 93–98
[2019-10-20] MEDS: heparin 5,000 unit/mL INJ 1 mL 5000 UNIT SUBCUT (00:48)
[2019-10-20 00:55] LABS: Glucose Point of Care 80 mg/dL (70-110)
[2019-10-20] MEDS: ampicillin 2,000 MG in sodium chloride 0.9% (plus) 50 ML 100 MG IV ×3 (02:44→11:27)
[2019-10-20 03:06] LABS: Glucose Point of Care 73 mg/dL (70-110)
[2019-10-20] MEDS: cefTRIAXone 2,000 MG in sodium chloride 0.9% (plus) 50 ML 100 MG IV (03:17)
[2019-10-20 04:43] LABS: Glucose Point of Care 72 mg/dL (70-110)
[2019-10-20] MEDS: metoprolol tartrate 1 mg/1 mL SDV 5 mL 5 MG IV ×2 (05:34→11:28)
[2019-10-20 06:00] LABS: Basophils % 0.2 %; Eosinophils # 0.3 10^3/uL (0.0-0.8); Eosinophils % 2.8 %; Hematocrit 34.6 % (42.0-52.0); Hemoglobin 10.6 g/dL (11.7-16.6); Lymphocytes # 1.2 10^3/uL (0.8-4.8); Lymphocytes % 10.6 %; Mean Corpuscular HGB Conc 30.6 g/dL (30.0-36.0); Mean Corpuscular Hemoglobin 32.8 pg (28.0-34.0); Mean Corpuscular Volume 107.1 fL (80-94); Mean Platelet Volume 9.8 fL (7.4-10.4); Monocytes # 0.8 10^3/uL (0.2-0.9); Monocytes % 7.2 %; Neutrophils # 9.1 10^3/uL (1.8-7.7); Neutrophils % 78.4 %; Nucleated Red Blood Cells % 0 %; Platelet Count 197 10^3/cmm (130-400); Red Blood Count 3.23 10^6/uL (4.1-5.3); Red Cell Distribution Width 15.6 % (12.1-15.1); White Blood Count 11.6 10^3/uL (4.0-10.0)
[2019-10-20 06:20] LABS: Alanine Aminotransferase 11 U/L (0-41); Albumin Level 3.2 g/dL (3.5-5.2); Alkaline Phosphatase 83 IU/L (40-130); Anion Gap 29.2 (5-19); Aspartate Amino Transferase 9 U/L (0-40); Blood Urea Nitrogen 49 mg/dL (8-23); Calcium 11.2 mg/dL (8.5-10.5); Carbon Dioxide 21 mmol/L (22-29); Chloride 100 mmol/L (98-107); Globulin 3.4 g/dL (1.3-4.6); Glomerular Filtration Rate 4.5 mL/min (90-130); Glucose 83 mg/dL (65-115); Magnesium 2.5 mg/dL (1.7-2.3); Osmolality Calculated 297 mOsm/kg (285-295); Potassium 5.2 mmol/L (3.5-5.1); Sodium 145 mmol/L (136-145); Total Bilirubin 0.3 mg/dL (0.15-1.2); Total Protein 6.6 g/dL (6.6-8.7)
[2019-10-20 06:36] LABS: Glucose Point of Care 82 mg/dL (70-110)
[2019-10-20 06:43] LABS: Phosphorus 8.4 mg/dL (2.5-4.5)
[2019-10-20] MEDS: doxycycline 100 MG in sodium chloride 0.9% (plus) 100 ML IV (08:25)
--- NOTE | 2019-10-20 08:41 | CT_ITS ---
WS: [id number] CT HEAD NONCONTRAST HISTORY: Cerebral edema TECHNIQUE: Contiguous axial imaging performed through the brain in 2.5 mm imaging. Bone and soft tiss ue windows. Sagittal and coronal reformats reviewed. All CT scans at [facility] use at le ast one of these dose optimization techniques: automated exposure control; mA and/or kV adjustment pe r patient size (includes targeted exams where dose is matched to clinical indication); or iterative r econstruction. DLP: 1205.69 mGy.cm COMPARISON: 10/16/2019. No acute intracranial hemorrhage, midline shift or mass effect. Previously described small infarcts by MRI are now apparent along the LEFT anterior supraventricular cerebral cortex. Not all of the recent infarcts are identified due to their small size. Ventricles: Normal size with no hydrocephalus. Paranasal sinuses: Mucoperiosteal thickening in the maxillary sinuses, LEFT greater than RIGHT. No ai r-fluid levels. Mastoid air cells: Well pneumatized. Calvarium and scalp: Skull is intact with no soft tissue edema or swelling. CT/CT head wo con* [id number] IMPRESSION: 1. No acute intracranial hemorrhage or edema. 2. Recently described acute infarcts are not well visualized due to their smal l size. The most evident infarcts along the LEFT anterior frontal paramedian co rtex.
--- NOTE | 2019-10-20 11:48 | P.PN_ITS ---
Subjective Subjective: Interval history: Remains severely encephalopathic on interview, unable to communicate. Hemodynamics remain stable, maintaining his airway. Pending transfer Medications: Reviewed: Yes Medication Review Details: Current Medications Acetaminophen (Tylenol) 325 mg PO Q6H PRN PRN Reason: MILD PAIN OR INCREASE TEMP Acetaminophen (Tylenol) 650 mg NH Q6H PRN PRN Reason: FEVER Hydrocodone Bitart/Acetaminophen ([place] 5-325 Mg) 0.5 - 1 tab PO Q4H PRN PRN Reason: Pain Allopurinol (Zyloprim) 150 mg PO DAILY [facility] Last Admin: 10/18/19 09:30 Dose: Not Given Documented by: Atorvastatin Calcium (Lipitor) 40 mg PO DAILY [facility] Last Admin: 10/18/19 09:30 Dose: Not Given Documented by: Carvedilol (Coreg) 25 mg PO BID [facility] Last Admin: 10/18/19 09:30 Dose: Not Given Documented by: Haloperidol Lactate (Haldol Inj) 2 mg IVP Q4H PRN PRN Reason: AGITATION Last Admin: 10/18/19 19:26 Dose: 2 mg Documented by: Heparin Sodium (Beef Lung) (Heparin) 5,000 unit SUBCUT Q8H [facility] Last Admin: 10/19/19 00:00 Dose: 5,000 unit Documented by: Hydralazine HCl (Apresoline) 10 mg IVP Q4H PRN PRN Reason: SBP>180 Last Admin: 10/19/19 02:22 Dose: 10 mg Documented by: Piperacillin Sod/Tazobactam (Sod 3.375 gm/ Sodium Chloride) 50 mls @ 12.5 mls/hr IV Q12H [facility]; Protocol Last Admin: 10/18/19 20:34 Dose: 12.5 mls/hr Documented by: Vancomycin HCl 1,000 mg/ (Sodium Chloride) 250 mls @ 250 mls/hr IV MoWeFr [facility]; Protocol Last Admin: 10/18/19 14:10 Dose: 250 mls/hr Documented by: Sodium Chloride (Sodium Chloride 0.9%) 1,000 mls @ 0 mls/hr IV .Q0M PRN PRN Reason: hypotension or symptomatic Metronidazole (Flagyl Iv) 500 mg in 100 mls @ 100 mls/hr IV Q8H [facility]; Protocol Last Admin: 10/18/19 23:47 Dose: 100 mls/hr Documented by: Lorazepam (Ativan) 1 mg IVP Q4H PRN PRN Reason: ANXIETY Last Admin: 10/19/19 05:15 Dose: 1 mg Documented by: Metoprolol Tartrate (Metoprolol Tartrate) 5 mg IV Q6H [facility] Last Admin: 10/19/19 05:15 Dose: 5 mg Documented by: Olanzapine (Zyprexa) 10 mg IM ONCE PRN PRN Reason: AGITATION Ondansetron HCl (Zofran) 4 mg IVP Q8H PRN PRN Reason: vomiting, or N/V if npo Sevelamer Carbonate (Renvela) 1,600 mg PO TIDWM [facility] Last Admin: 10/18/19 18:01 Dose: Not Given Documented by: Vitals/I&O/Wt Last Vital Signs Temp 99.6 F 10/20/19 07:30 Pulse 120 H 10/20/19 10:00 Resp 23 H 10/20/19 10:00 BP 145/95 10/20/19 10:00 Pulse Ox 94 10/20/19 10:00 10/19/19 10/20/19 10/20/19 22:59 06:59 14:59 Intake Total 150 / 150 100 / 250 50 / 50 Output Total 0 / 0 Balance 150 / 150 100 / 250 50 / 50 Physical Exam Narrative: EXAM NARRATIVE: comfortable in bed. had fevers overnight. BP elevated and tachycardic nard heent- nc/at, eomi, anicteric neck no jvp lung b/l good air movement heart reg, tachycardic, +SIENA abd soft, nt, nd, +BS ext left TMA- appears c/d/i no lower ext edmea neuro- lethargic dialysis access - rt IJ PC Data : 10/20/19 05:45 10/20/19 05:45 Micro: Microbiology 10/19/19 13:00 Gram Stain - Final Cerebrospinal Fluid CSF Culture - Preliminary 10/18/19 16:00 Gram Stain - Final Other Source Body Fluid Culture - Preliminary 10/18/19 18:05 Blood Culture - Preliminary Blood NEGATIVE TO DATE 10/18/19 18:05 Blood Culture - Preliminary Blood NEGATIVE TO DATE 10/19/19 12:10 Blood Culture - Preliminary Blood SPECIMEN COLLECTED 10/19/19 12:00 Blood Culture - Preliminary Blood SPECIMEN COLLECTED 10/18/19 14:57 Urine Culture - Preliminary Urine,Clean Catch 10/18/19 18:17 MRSA Culture - Final Nose A&P Additional A&P Information 1. ESRD - no acute indication for dialysis today - will defer dialysis pending transfer; line is likely primary source of bacteremia and will need removal today at accepting facility (we can do here if there is delay) - daily eval - will likely need a temp line in the am 2. AMS - picture consistent with septic emboli - Dr Copeland's input is greatly appreciated and I have discussed with case with him - family want to pursue aggressive care including AIDA - on Abx inc Vanco and Ampicillin 3. Lytes - non cirtical aberration; close monitoring 4. 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 Binders when he eats for hyperphos - pending transfer to [facility] - interview and exam performed with the aid of telemed Attestations Medical Necessity Statement*: eval for ESRD mgmt Coding Level of Care Code Acute Save All Operator for Rafael Chambers
--- NOTE | 2019-10-20 12:17 | P.TS_ITS ---
Transfer Summary Providers Date of Admission: 10/17/19 00:43 Date of Discharge: 10/20/19 Attending Provider at Admission: Hiwot Kulkarni MD Attending Provider at Transfer: Nelson Copeland MD Primary Care Provider: Hiwot Herrera MD Anticipated Date of Transfer: Anticipated date of transfer: 10/20/19 Receiving Facility & Provider: Receiving Provider: [] Receiving facility: [] Diagnoses at Discharge Discharge Diagnosis (1) Septic encephalopathy: Status: Acute (2) Sepsis: Status: Acute (3) Osteomyelitis: Status: Acute (4) Fever: Status: Acute Qualifiers: Fever type: unspecified Qualified Code(s): R50.9 - Fever, unspecified (5) End-stage renal disease (ESRD): Status: Acute (6) S/P transmetatarsal amputation of foot: Status: Acute (7) Pulmonary nodules/lesions, multiple: Status: Acute (8) Type 2 diabetes mellitus: Status: Acute (9) Acute hyperactive delirium due to another medical condition: Status: Acute Reason for Visit Reason for Visit: CONFUSION Hospital Course Discharge Summary: This is a 59-year-old male with a past medical history of end-stage renal disease on hemodialysis Wednesday, has a right dialysis catheter in place, severe peripheral vascular disease, history of left forefoot TMA with history of osteomyelitis finish 6 weeks of vancomycin via PICC line which was recently removed, uncontrolled type 2 diabetes mellitus, hypertension, anxiety, gout who presents to [facility] due to complaints of fever and altered mental status. Of note patient recently was discharged from [facility] in August 2019 for fevers and altered mental status secondary to left TMA site osteomyelitis, he received 6 weeks of IV vancomycin via PICC line, which wasrecently moved, managed by Dr. Koch as outpatient, his TMA site has been improving, has received debridements in the past. Cultures have grown MRSA. The story of this admission, is that patient was seen at dialysis on 10/16/2019, roughly in the afternoon, had fevers as high as 102 was confused, they gave him a dose of vancomycin, sent him home, patient was seen roughly at 5 PM but his home health care nurse when she noticed he was fairly agitated, angry, confused, with persistent fever so he was sent to the emergency room for further evaluation. Patient was admitted overnight on 10/17/2019, for fevers and altered mental status, with source unknown. Patient was on broad-spectrum antibiotics since his admission, vancomycin, Zosyn. Patient urine analysis did not show any UTI. Patient's initial chest x-ray did not show any significant pneumonia. COVID- 19 testing was ordered and took 24 hours to return which was negative. CT scan of the abdomen did not show any acute pathology. Sputum cultures initially were unremarkable. First set of blood cultures were negative. Initial echocardiogram of the heart showed no grossly enlarged endocarditis. Patient has had multiple pulmonary nodules concerning for pulmonary septic emboli from his right dialysis catheter versus malignancy, this was seen on his last admission, he was discharged on antibiotics, the thought was to repeat CT scan in a few months to see what the nodules would do. Repeat CT scan of the chest reviewed with radiology and pulmonary, showed that the pulmonary nodules decreased in size, likely malignancy likely septic emboli, possibly from his right dialysis catheter. HIV was nonreactive. Hepatitis C was nonreactive. Unlikely to have neuroleptic malignant syndrome or serotonin syndrome as he was not on any SSRIs or antipsychotic medications. Patient also had right olecranon bursitis, we were concerned for possible septic joint as an explanation for his fevers and altered mental status, this joint was tapped, so far cultures have been unremarkable, Gram stain was unremarkable, speaking with pathology there is a large crystal scenes, likely severe gouty attack. Patient has significant gout nodules of his upper and lower extremities, so it was likely a gouty attack., Unlikely to be septic joint. So at this point my differential was possibly right-sided endocarditis, meningitis, encephalitis, dialysis port infection. Attempts were made by me and Dr. Wahl to perform a lumbar puncture, however there is just so much fibrous tissue, and we were unable to perform a successful lumbar puncture. In addition I had asked our radiology and anesthesia team to perform a lumbar puncture, however as patient had taken Plavix roughly 2 to 3 days ago, they refused. Thus I had Dr. Ly from neurology perform a lumbar puncture, which was successful. Lumbar puncture showed 146 white blood cells, 33 glucose, 101 total protein, pH of 10, Gram stain showed WBCs, no organisms, culture so far -1-day. Based upon his LP results, it looks like he had meningitis. His antibiotic coverage was expanded to vancomycin, Rocephin, ampicillin, at one point he also was on acyclovir for viral meningitis encep halitis which was stopped. Patient's first set of blood cultures drawn on 10/16/2019 temporary were negative, repeat blood cultures on 10/18/2019 remain unremarkable, blood cultures from his dialysis port on 10/19/2019 remain unremarkable. Patient's MRI of the brain shows numerous bilateral acute infarcts, left paramedian acute pontine infarct extends from anterior rex to the base of the rex, additional small lacunar infarct in the right cerebellum, additional acute infarct involving the centrum semiovale and extending in the corpus callosum. There are small infarcts at the right vertex, likely involving the posterior frontal cortex. No acute associated hemorrhage. 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 All of which is likely associated with his right dialysis catheter in place. For the culture-negative endocarditis, I have ordered Coxiella Duncan, Bartonella, mycoplasma, chlamydia antigen testing which are pending at this time. My examination 10/20/2019, patient is fairly somnolent, does withdraw from pain, does say ouch, does at times open his eyes, is hard to see if if these are meaningful responses or not, he does have twitching of bilateral upper extremities, some lower extremities, which I were concerned for seizures so I have started him on Keppra, EEG is pending at this time but likely needs continuous EEG monitoring. I was also concerned as he continues to have fevers overnight for cerebral edema, CT head no acute intracranial hemorrhage or edema. Right now patient needs his right dialysis catheter removed, tip cultured, new dialysis catheter placed transesophageal echocardiogram, needs continuous EEG monitoring for monitoring seizure-like activity, there is concerns for cerebral edema, needs a neuro ICU, needs neurology, needs neurosurgery, needs cardioth oracic surgery, likely requires surgical intervention. Per discussion with the family, family wants patient to be at higher level of care, wanted patient transferred to [facility]. I discussed the entire case with patient family, I advised patient's status is critical, prognosis is poor, risks and benefits discussed of interventions, voiced understanding, all questions answered. Patient's family wanted patient transferred for to [facility] for interventions. Patient was transferred to medical ICU Dr. Flores. Physical Exam Narrative: EXAM NARRATIVE: Patient does not follow commands, does moan, does withdraw from pain, says ouch when stimulated Eye: COMMON NORMALS: Equal, round and reactive pupils present PUPIL: Yes Equal, round and reactive pupils present Neck/C-Spine: COMMON NORMALS: no JVD Lymph: LYMPHATIC: no lymphadenopathy noted Chest: COMMONS NORMALS: normal inspection of the chest Resp: COMMON NORMALS: normal respiratory effort, No retractions, No use of accessory muscles and clear to auscultation bilaterally AUSCULTATION: clear to auscultation bilaterally Cardio: COMMON NORMALS: no JVD, S1 normal heart sound present and S2 normal heart sound present RATE: tachycardic HEART SOUNDS: S1 normal heart sound present and S2 normal heart sound present GI: COMMON NORMALS: Normal to inspection, nondistended, normoactive bowel sounds present, Soft to palpation, non-tender and No hepatosplenomegaly present PALPATION: Yes Soft to palpation and Yes No hepatosplenomegaly present : COMMON NORMALS: Yes no CVA tenderness BLADDER/KIDNEY EXAM: Yes no CVA tenderness Back/Pelvis: COMMON NORMALS: no CVA tenderness Extremity: NARRATIVE EXTREMITY EXAM: Left TMA site looks clean and dry OTHER: Right shoulder, olecranon bursa TS Data Data Completed and Pending: Completed Studies During Hospitalization Category Date Time Status CT chest abd pel wo con Stat Cat Scan 10/17/19 10:[address] head wo con* 7 0450 Routine Cat Scan 10/20/19 08:[address] head wo con* 7 0450 Urgent Cat Scan 10/16/19 20:15 Completed XR chest 1V luciano ble [id number] Urgent Exams 10/16/19 20:15 Completed XR foot LT min 3V * 30788 Stat Exams 10/16/19 20:15 Completed MR head wo con* 7 0551 Stat MRI 10/19/19 09:50 Completed CV echo limited 9 3308 Routine Ultrasound 10/18/19 07:00 Completed Pending at discharge Category Date Time Status EEG electroenceph alogram Routine Exams 10/20/19 08:41 Ordered GERTRUDIS Profile Rheum atology Stat Lab 10/20/19 07:30 Received Albumin CSF Routi ne Lab 10/19/19 13:00 Results Blood Culture Sta t Lab 10/16/19 20:25 Results Blood Culture Sta t Lab 10/18/19 18:05 Results Blood Culture Sta t Lab 10/19/19 12:10 Results Body Fluid Cultur e & GS Stat Lab 10/18/19 16:00 Results CSF Culture & Gra m Stain Stat Lab 10/19/19 13:00 Results Chlamydia / Gonor richard Panel Stat Lab 10/20/19 07:30 Uncollected Complete Blood Co unt w/Auto AM LABS Lab 10/21/19 04:00 Ordered Glucose CSF Routi ne Lab 10/19/19 13:00 Results Herpes Simplex Vi noah DNA Stat Lab 10/19/19 13:00 Received Lactate CSF Routi ne Lab 10/19/19 13:00 Received Lactate Dehydroge nase CSF Routine Lab 10/19/19 13:00 Results Legionella Antibo dy Stat Lab 10/20/19 05:45 Received Legionella Cultur e Stat Lab 10/20/19 07:30 Uncollected Lymes Disease Ant ibodies CSF Stat Lab 10/19/19 13:00 Received Miscellaneous Monique t Routine Lab 10/19/19 13:00 Received Miscellaneous Monique t Routine Lab 10/19/19 13:00 Received Miscellaneous Monique t Routine Lab 10/20/19 05:45 Received Miscellaneous Moinque t Routine Lab 10/20/19 05:45 Received Miscellaneous Monique t Routine Lab 10/20/19 05:45 Received Miscellaneous Monique t Stat Lab 10/20/19 05:45 Received Oligoclonal Bands IGG, CSF Stat Lab 10/18/19 14:47 Received Oligoclonal Bands IGG, CSF Stat Lab 10/19/19 13:00 Received Sputum Culture an d Gram Stain Stat Lab 10/17/19 11:10 [facility]collected [facility] Virus IFA CSF Stat Lab 10/19/19 13:00 Received Total Protein CSF Routine Lab 10/19/19 13:00 Results Urine Culture Sta t Lab 10/18/19 14:57 Results VDRL on CSF Stat Lab 10/19/19 13:00 Received Viral Respiratory ,Rapid Cultur Stat Lab 10/18/19 14:57 Received West Nile Virus A B Panel,CSF Stat Lab 10/19/19 13:00 Received Labs from last 24 hours 10/20/19 10/20/19 10/20/19 06:34 05:45 05:45 WBC 11.6 H RBC 3.23 L Hgb 10.6 L Hct 34.6 L MCV 107.1 H MCH 32.8 MCHC 30.6 RDW 15.6 H Plt Count 197 MPV 9.8 Neut % (Auto) 78.4 Lymph % (Auto) 10.6 [place] % (Auto) 7.2 Eos % (Auto) 2.8 Baso % (Auto) 0.2 Neut # (Auto) 9.1 H Lymph # (Auto) 1.2 [place] # (Auto) 0.8 Eos # (Auto) 0.3 Baso # (Auto) 0.0 Nucleated RBC % (a uto) 0 Nucleated RBCs # 0.0 Sodium 145 Potassium 5.2 H Chloride 100 Carbon Dioxide 21 L Anion Gap 29.2 H BUN 49 H Creatinine 11.6 H* GFR Calculation 4.5 L Glucose 83 POC Glucose 82 Calculated Osmolal ity 297 H Calcium 11.2 H Phosphorus 8.4 H* Magnesium 2.5 H Total Bilirubin 0.3 AST 9 ALT 11 Alkaline Phosphata se 83 Total Protein 6.6 Albumin 3.2 L Globulin 3.4 CSF Appearance CSF Color CSF Specific Gravi ty CSF WBC CSF RBC CSF Mononuclear # Auto CSF Mononuclear WB Cs % CSF Polynuclear WB Cs # CSF Polynuclear WB Cs % CSF Diff Comment CSF Glucose CSF Total Protein 10/20/19 10/20/19 10/20/19 04:38 03:02 00:37 WBC RBC Hgb Hct MCV MCH MCHC RDW Plt Count MPV Neut % (Auto) Lymph % (Auto) [place] % (Auto) Eos % (Auto) Baso % (Auto) Neut # (Auto) Lymph # (Auto) [place] # (Auto) Eos # (Auto) Baso # (Auto) Nucleated RBC % (a uto) Nucleated RBCs # Sodium Potassium Chloride Carbon Dioxide Anion Gap BUN Creatinine GFR Calculation Glucose POC Glucose 72 73 80 Calculated Osmolal ity Calcium Phosphorus Magnesium Total Bilirubin AST ALT Alkaline Phosphata se Total Protein Albumin Globulin CSF Appearance CSF Color CSF Specific Gravi ty CSF WBC CSF RBC CSF Mononuclear # Auto CSF Mononuclear WB Cs % CSF Polynuclear WB Cs # CSF Polynuclear WB Cs % CSF Diff Comment CSF Glucose CSF Total Protein 10/19/19 10/19/19 10/19/19 17:29 13:00 13:00 WBC RBC Hgb Hct MCV MCH MCHC RDW Plt Count MPV Neut % (Auto) Lymph % (Auto) [place] % (Auto) Eos % (Auto) Baso % (Auto) Neut # (Auto) Lymph # (Auto) [place] # (Auto) Eos # (Auto) Baso # (Auto) Nucleated RBC % (a uto) Nucleated RBCs # Sodium Potassium Chloride Carbon Dioxide Anion Gap BUN Creatinine GFR Calculation Glucose POC Glucose 98 Calculated Osmolal ity Calcium Phosphorus Magnesium Total Bilirubin AST ALT Alkaline Phosphata se Total Protein Albumin Globulin CSF Appearance Clear CSF Color Colorless CSF Specific Gravi ty 1.010 CSF WBC 146 H CSF RBC 0 CSF Mononuclear # Auto 0.115 L CSF Mononuclear WB Cs % 79 CSF Polynuclear WB Cs # 0.031 CSF Polynuclear WB Cs % 21 H CSF Diff Comment Yes CSF Glucose 33 L CSF Total Protein 101 H Addt'l Data from Hospital Stay: Home Medications carvedilol 25 mg PO BID 05/12/19 [History Confirmed 10/16/19] hydrocodone-acetaminophen 0.5 - 1 tab PO Q4H PRN 05/12/19 [History Confirmed 10/16/19] sevelamer carbonate [Renvela] 800 mg PO TID 05/12/19 [History Confirmed 10/16/19] allopurinol 100 mg tablet 150 mg PO DAILY tab 08/17/19 [History Confirmed 10/16/19] trazodone 50 mg tablet 50 mg PO .HS tab 08/17/19 [History Confirmed 10/16/19] amlodipine 5 mg PO DAILY #30 tab 09/01/19 [Rx Confirmed 10/16/19] atorvastatin 40 mg PO DAILY #30 tab 09/01/19 [Rx Confirmed 10/16/19] clopidogrel 75 mg PO DAILY #30 tab 09/01/19 [Rx Confirmed 10/16/19] Active Medications Acetaminophen (Tylenol) 325 mg PO Q6H PRN PRN Reason: MILD PAIN OR INCREASE TEMP Acetaminophen (Tylenol) 650 mg [place] Q6H PRN PRN Reason: FEVER Hydrocodone Bitart/Acetaminophen ([place] 5-325 Mg) 0.5 - 1 tab PO Q4H PRN PRN Reason: Pain Allopurinol (Zyloprim) 150 mg PO DAILY [facility] Last Admin: 10/20/19 07:44 Dose: Not Given Documented by: Atorvastatin Calcium (Lipitor) 40 mg PO DAILY [facility] Last Admin: 10/20/19 07:44 Dose: Not Given Documented by: Carvedilol (Coreg) 25 mg PO BID [facility] Last Admin: 10/18/19 09:30 Dose: Not Given Documented by: Haloperidol Lactate (Haldol Inj) 2 mg IVP Q4H PRN PRN Reason: AGITATION Last Admin: 10/19/19 11:50 Dose: 2 mg Documented by: Heparin Sodium (Beef Lung) (Heparin) 5,000 unit SUBCUT Q8H [facility] Last Admin: 10/20/19 07:56 Dose: Not Given Documented by: Hydralazine HCl (Apresoline) 10 mg IVP Q4H PRN PRN Reason: SBP>180 Last Admin: 10/19/19 21:33 Dose: 10 mg Documented by: Vancomycin HCl 1,000 mg/ (Sodium Chloride) 250 mls @ 250 mls/hr IV MoWeFr [facility]; Protocol Last Admin: 10/20/19 12:39 Dose: 250 mls/hr Documented by: Sodium Chloride (Sodium Chloride 0.9%) 1,000 mls @ 0 mls/hr IV .Q0M PRN PRN Reason: hypotension or symptomatic Ceftriaxone Sodium 2,000 mg/ (Sodium Chloride) 50 mls @ 100 mls/hr IV Q12H [facility]; Protocol Last Admin: 10/20/19 03:17 Dose: 100 mls/hr Documented by: Ampicillin Sodium 2,000 mg/ (Sodium Chloride) 50 mls @ 100 mls/hr IV Q4H [facility] Last Admin: 10/20/19 11:27 Dose: 100 mls/hr Documented by: Doxycycline Hyclate 100 mg/ (Sodium Chloride) 100 mls @ 100 mls/hr IV Q12H [facility]; Protocol Last Admin: 10/20/19 08:25 Dose: 100 mls/hr Documented by: Levetiracetam 1,000 mg/ Sodium (Chloride) 110 mls @ 440 mls/hr IV ONCE [facility] Levetiracetam 500 mg/ Sodium (Chloride) 105 mls @ 420 mls/hr IV Q12H [facility] Lorazepam (Ativan) 1 mg IVP Q4H PRN PRN Reason: ANXIETY Last Admin: 10/19/19 13:34 Dose: 1 mg Documented by: Metoprolol Tartrate (Metoprolol Tartrate) 5 mg IV Q6H [facility] Last Admin: 10/20/19 11:28 Dose: 5 mg Documented by: Metoprolol Tartrate (Lopressor) 25 mg PO BID [facility] Last Admin: 10/20/19 10:09 Dose: Not Given Documented by: Multivitamins (Allbee-C) 1 each PO DAILY [facility] Last Admin: 10/20/19 07:44 Dose: Not Given Documented by: Olanzapine (Zyprexa) 10 mg IM ONCE PRN PRN Reason: AGITATION Ondansetron HCl (Zofran) 4 mg IVP Q8H PRN PRN Reason: vomiting, or N/V if npo Sevelamer Carbonate (Renvela) 1,600 mg PO TIDWM [facility] Last Admin: 10/20/19 12:17 Dose: Not Given Documented by: Vitals: Last Vital Signs Temp 99.6 F 10/20/19 07:30 Pulse 110 H 10/20/19 12:00 Resp 18 10/20/19 12:00 BP 145/95 10/20/19 12:00 Pulse Ox 97 10/20/19 12:00 TS Medications Medications Home Medications carvedilol 25 mg PO BID 05/12/19 [History Confirmed 10/16/19] hydrocodone-acetaminophen 0.5 - 1 tab PO Q4H PRN 05/12/19 [History Confirmed 10/16/19] sevelamer carbonate [Renvela] 800 mg PO TID 05/12/19 [History Confirmed 10/16/19] allopurinol 100 mg tablet 150 mg PO DAILY tab 08/17/19 [History Confirmed 10/16/19] trazodone 50 mg tablet 50 mg PO .HS tab 08/17/19 [History Confirmed 10/16/19] amlodipine 5 mg PO DAILY #30 tab 09/01/19 [Rx Confirmed 10/16/19] atorvastatin 40 mg PO DAILY #30 tab 09/01/19 [Rx Confirmed 10/16/19] clopidogrel 75 mg PO DAILY #30 tab 09/01/19 [Rx Confirmed 10/16/19] Active Medications Acetaminophen (Tylenol) 325 mg PO Q6H PRN PRN Reason: MILD PAIN OR INCREASE TEMP Acetaminophen (Tylenol) 650 mg [place] Q6H PRN PRN Reason: FEVER Hydrocodone Bitart/Acetaminophen ([place] 5-325 Mg) 0.5 - 1 tab PO Q4H PRN PRN Reason: Pain Allopurinol (Zyloprim) 150 mg PO DAILY [facility] Last Admin: 10/20/19 07:44 Dose: Not Given Documented by: Atorvastatin Calcium (Lipitor) 40 mg PO DAILY [facility] Last Admin: 10/20/19 07:44 Dose: Not Given Documented by: Carvedilol (Coreg) 25 mg PO BID [facility] Last Admin: 10/18/19 09:30 Dose: Not Given Documented by: Haloperidol Lactate (Haldol Inj) 2 mg IVP Q4H PRN PRN Reason: AGITATION Last Admin: 10/19/19 11:50 Dose: 2 mg Documented by: Heparin Sodium (Beef Lung) (Heparin) 5,000 unit SUBCUT Q8H [facility] Last Admin: 10/20/19 07:56 Dose: Not Given Documented by: Hydralazine HCl (Apresoline) 10 mg IVP Q4H PRN PRN Reason: SBP>180 Last Admin: 10/19/19 21:33 Dose: 10 mg Documented by: Vancomycin HCl 1,000 mg/ (Sodium Chloride) 250 mls @ 250 mls/hr IV MoWeFr [facility]; Protocol Last Admin: 10/18/19 14:10 Dose: 250 mls/hr Documented by: Sodium Chloride (Sodium Chloride 0.9%) 1,000 mls @ 0 mls/hr IV .Q0M PRN PRN Reason: hypotension or symptomatic Ceftriaxone Sodium 2,000 mg/ (Sodium Chloride) 50 mls @ 100 mls/hr IV Q12H [facility]; Protocol Last Admin: 10/20/19 03:17 Dose: 100 mls/hr Documented by: Ampicillin Sodium 2,000 mg/ (Sodium Chloride) 50 mls @ 100 mls/hr IV Q4H [facility] Last Admin: 10/20/19 11:27 Dose: 100 mls/hr Documented by: Doxycycline Hyclate 100 mg/ (Sodium Chloride) 100 mls @ 100 mls/hr IV Q12H [facility]; Protocol Last Admin: 10/20/19 08:25 Dose: 100 mls/hr Documented by: Levetiracetam 1,000 mg/ Sodium (Chloride) 110 mls @ 440 mls/hr IV ONCE [facility] Levetiracetam 500 mg/ Sodium (Chloride) 105 mls @ 420 mls/hr IV Q12H [facility] Lorazepam (Ativan) 1 mg IVP Q4H PRN PRN Reason: ANXIETY Last Admin: 10/19/19 13:34 Dose: 1 mg Documented by: Metoprolol Tartrate (Metoprolol Tartrate) 5 mg IV Q6H [facility] Last Admin: 10/20/19 11:28 Dose: 5 mg Documented by: Metoprolol Tartrate (Lopressor) 25 mg PO BID [facility] Last Admin: 10/20/19 10:09 Dose: Not Given Documented by: Multivitamins (Allbee-C) 1 each PO DAILY [facility] Last Admin: 10/20/19 07:44 Dose: Not Given Documented by: Olanzapine (Zyprexa) 10 mg IM ONCE PRN PRN Reason: AGITATION Ondansetron HCl (Zofran) 4 mg IVP Q8H PRN PRN Reason: vomiting, or N/V if npo Sevelamer Carbonate (Renvela) 1,600 mg PO TIDWM [facility] Last Admin: 10/20/19 12:17 Dose: Not Given Documented by: Discharge Plan Discharge Patient Disposition: Xfer Short-Term Hosp Condition: Stable Prescriptions: No Action allopurinol 100 mg tablet 150 mg PO DAILY RF: 0 trazodone 50 mg tablet 50 mg PO .HS RF: 0 sevelamer carbonate [Renvela] 800 mg Tablet 800 mg PO TID RF: 0 carvedilol 25 mg Tablet 25 mg PO BID RF: 0 hydrocodone-acetaminophen 5-325 mg Tablet 0.5 - 1 tab PO Q4H PRN (Reason: Pain) RF: 0 atorvastatin 40 mg Tablet 40 mg PO DAILY Qty: 30 RF: 0 clopidogrel 75 mg Tablet 75 mg PO DAILY Qty: 30 RF: 0 amlodipine 2.5 mg tablet 5 mg PO DAILY Qty: 30 RF: 0 Discharge Orders: Discharge Order (Routine); Ordered 10/20/19 Ordered By: Nelson Copeland Referrals: Hiwot Herrera MD [Primary Care Provider] - Discharge Diet: As Directed Discharge Activity: Resume usual activity Transfer Attestations Time Spent in Transfer Care*: less than 30 min Status at Transfer: Cognitive status at transfer: cognitively intact , Behavioral status at transfer: cooperative , Quality Metrics Clinical Quality Measures: During this hospital stay, did patient experience: None Coding Level of Care Code Acute Marketing Analytics Analyst for [facility] Fwd Diagnoses Septic encephalopathy G93.41 Sepsis A41.9 Osteomyelitis M86.9 Fever R50.9 Fever type: unspecified End-stage renal disease (ESRD) N18.6 S/P transmetatarsal amputation of foot Z89.439 Pulmonary nodules/lesions, multiple R91.8 Type 2 diabetes mellitus E11.9 Acute hyperactive delirium due to another medical condition F05
[2019-10-20 12:39] LABS: Glucose Point of Care 78 mg/dL (70-110)
[2019-10-20] MEDS: vancomycin 1,000 MG in sodium chloride 0.9% 250 ML 250 MG IV (12:39)
--- NOTE | 2019-10-20 13:24 | PC.SOCIAL ---
IMM Not Given IMM not given as patient is transferring to [facility].
--- NOTE | 2019-10-20 13:39 | PC.NURSE ---
Pt discharged to [facility] personnel at 1320 for transfer to [facility]. VSS stable, belongings sent home with family members.
[2019-10-23 20:50] LABS: VDRL on CSF NON-REACTIVE
[2019-10-23 22:46] LABS: Legionella Antibody <1:256
[2019-10-24 13:21] LABS: HSV 1 DNA NOT DETECTED; HSV 2 DNA NOT DETECTED; HSV Source CEREBROSPINAL FLUID
[2019-10-25 05:47] LABS: West Nile Virus AB (IGG) <1.30 index; West Nile Virus AB (IGM) <0.90 index
[2019-10-25 11:26] LABS: COMPLEMENT, TOTAL (CH50) >60 U/mL (31-60)
[2019-10-25 13:17] LABS: COMPLEMENT COMPONENT C3C 125 mg/dL (82-185); COMPLEMENT COMPONENT C4C 44 mg/dL (15-53)
[2019-10-25 14:41] LABS: THYROID PEROXIDASE ANTIBODIES 1 IU/mL (<9)
[2019-10-25 16:37] LABS: Lyme Disease AB (IGG),IBL NO BANDS DETECTED; Lyme Disease AB (IGM), IBL NO BANDS DETECTED
[2019-10-25 17:01] LABS: St. Louis Enceph.Virus IGG CSF <1:1; St. Louis Enceph.Virus IGM CSF <1:1
[2019-10-26 13:16] LABS: CENTROMERE B ANTIBODY <1.0 NEG AI (<1.0 NEG); JO-1 ANTIBODY <1.0 NEG AI (<1.0 NEG); RNP ANTIBODY <1.0 NEG AI (<1.0 NEG); SCL-70 ANTIBODY <1.0 NEG AI (<1.0 NEG); SJOGREN'S ANTIBODY (SS-A) <1.0 NEG AI (<1.0 NEG); SM ANTIBODY <1.0 NEG AI (<1.0 NEG)
[2019-10-26 16:04] LABS: Oligoclonal Bands IGG, CSF BANDS NOTED (NO BANDS)
[2019-10-26 18:01] LABS: ANA SCREEN, IFA NEGATIVE (NEGATIVE)
== END 2019-10-20 13:20 | disposition short-term general hospital (02) | DRG 314 ==
LOC: ER 10-17 00:06 → MEDSURG 10-17 00:58 → ICU 10-18 17:57
PROVIDERS: Emergency Medicine; Internal Medicine Nephrology; Admitting Provider Internal Medicine; PCP Internal Medicine Cardiovascular Disease; Visit Provider Family Medicine
DX: T82.7XXA Infection and inflammatory reaction due to other cardiac and vascular devices, implants and grafts, initial encounter (principal); A41.9 Sepsis, unspecified organism; N18.6 End stage renal disease; G00.9 Bacterial meningitis, unspecified; I33.0 Acute and subacute infective endocarditis; G04.90 Encephalitis and encephalomyelitis, unspecified; G93.6 Cerebral edema; G93.41 Metabolic encephalopathy; I76 Septic arterial embolism; M00.821 Arthritis due to other bacteria, right elbow; I12.0 Hypertensive chronic kidney disease with stage 5 chronic kidney disease or end stage renal disease; R91.1 Solitary pulmonary nodule; E11.51 Type 2 diabetes mellitus with diabetic peripheral angiopathy without gangrene; E11.22 Type 2 diabetes mellitus with diabetic chronic kidney disease; Y83.9 Surgical procedure, unspecified as the cause of abnormal reaction of the patient, or of later complication, without mention of misadventure at the time of the procedure; Z79.02 Long term (current) use of antithrombotics/antiplatelets; M19.90 Unspecified osteoarthritis, unspecified site; Z99.2 Dependence on renal dialysis; Z87.891 Personal history of nicotine dependence
CPT/HCPCS: 12345; 36415; 36416; 70450; 70551; 71045; 71250; 73630; 74176; 80048; 80053; 80202; 80307; 80500; 81001; 82042; 82150; 82310; 82550; 82728; 82945; 82962; 83036; 83605; 83615; 83735; 83970; 83986; 84100; 84145; 84157; 84315; 84550; 85025; 85610; 85651; 86140; 86592; 86617; 86653; 86706; 86713; 86788; 86789; 86803; 87040; 87070; 87075; 87077; 87086; 87186; 87205; 87340; 87530; 87635; 87641; 87806; 89050; 93005; 93308; 96372; 96375; 99283; J0131; J0133; J0290; J0360; J0696; J1630; J1644; J2060; J2543; J3370; J3490; J7040; J7050; Q3014; S0030